=== PATIENT | male | born 1980 | race Caucasian/White ===

== ENCOUNTER 2017-09-13 14:04 | Emergency (ER) | payer MEDICAID, OTHER ==
--- NOTE | 2017-09-13 14:48 | RAD ---
PORTABLE AP CHEST X-RAY: 09/13/2017 HISTORY: Sepsis. COMPARISON: 06/18/2017. FINDINGS: Post-surgical changes related to median sternotomy are again present. Cardiac silhouette is magnified by projection and shallow depth of inspiration. Lungs are clear. Metallic density overlies the rig ht lung base likely related to external jewelry, also seen on prior exam. No interval change from pr ior study. IMPRESSION: No acute cardiopulmonary process. POS: OFF
[2017-09-13 15:04] LABS: #Eosinphils 0.1 thou/uL (0.0-0.7); #Lymphocytes 0.9 thou/uL (1.20-3.40); #Monocytes 0.5 thou/uL (0.11-0.59); #Neutrophils 2.4 thou/uL (1.40-6.50); %Basophils 0.5 % (0.0-1.0); %Eosinophils 2.1 % (0.0-10.0); %Lymphocytes 23.2 % (21.0-51.0); %Monocytes 12.3 % (0.0-10.0); Hematocrit 44.3 % (42.0-52.0); Mean Platelet Volume 7.2 fL (7.4-10.4); Red Blood Cell (RBC) Count 4.55 mill/uL (4.70-6.10); White Blood Cell (WBC) Count 3.9 thou/uL (4.8-10.8)
[2017-09-13 15:17] LABS: Lactic Acid - Sepsis 1.5 mmol/L (0.5-2.2)
[2017-09-13 15:37] LABS: Bilirubin Negative (Negative); Blood, Urine Trace (Negative); Glucose, Urine (Dipstick) >=1000 mg/dL (Negative); Ketone, Urine 40 mg/dL (Negative); Nitrite Negative (Negative); Protein, Urine (Dipstick) Trace mg/dL (Neg-Trace); Urobilinogen 0.2 mg/dL (0.2-1.0)
[2017-09-13 15:40] LABS: Bacteria/HPF None Seen HPF (None Seen); Hyaline Casts/LPF 0-3 HYALINE CAST LPF (0-3 Hyaline); RBC/HPF 0-3 HPF (0-3); Squamous Epithelial None Seen HPF (0-3); WBC/HPF 0-3 HPF (0-3)
[2017-09-13 15:55] LABS: ALT (SGPT) 45 U/L (8-55); AST (SGOT) 40 U/L (5-34); Alkaline Phosphatase 79 U/L (40-150); Anion Gap 13 mmol/L (10-20); BUN (Urea Nitrogen) 10 mg/dL (8.9-20.6); Calc. Creatinine Clearance 0 mL/min (70-130); Calcium 8.7 mg/dL (7.8-10.44); Carbon Dioxide 22 mmol/L (22-29); Chloride 102 mmol/L (98-107); Estimated GFR-MDRD Greater than 90; Protein, Total 6.5 g/dL (6.0-8.3)
[2017-09-13] MEDS ORDERED: Ketorolac Tromethamine 30 MG/ML VIAL ONE (16:21)
[2017-09-13] MEDS ORDERED: Clindamycin/D5W 600 mg/50 ml Premix Bag ONE (17:03)
[2017-09-13] MEDS ORDERED: Clindamycin 150 MG CAP ONE (17:05)
--- NOTE | 2017-09-14 07:12 | CT ---
POST CONTRAST FACE CT: History: Weakness starting today, facial pain. Comparison: None. Technique: Post contrast facial CT is performed in the axial plane. Reformatted images are submitted for interpretation. FINDINGS: Visualized brain parenchyma is unremarkable. There is mild mucosal thickening of the ethmoid air cells. There is a mucous retention cyst in the le ft maxillary sinus. Adequate mastoid air cell aeration. Visualized osseous structures of the face and orbits are unremarkable. Coronal reformatted images dem onstrate patent bilateral osteomeatal complexes. The septum is intact. Mild leftward deviation of the bony spur. There extensive peridental disease. There are multiple dental caries involving the left mandibular mo lar teeth. No evidence of destruction of the mandible. There are extensive dental caries involving bi lateral maxilla molar teeth, left greater than right. With regard to the oral cavity, evaluation is limited by beam attenuation artifact. Midline fatty elsy f of the tongue appears to be preserved. The floor of the mouth is unremarkable. There is mixed atten uation anterior to the right gingiva, compatible with dip/snuff. There is symmetric attenuation of the parotid and submandibular glands. There is minimal induration of the facial subcutaneous fat. There in induration and loss of the jennifer l fat lateral to the left nasal cavity and anterior left maxillary sinus. A focal area of inflammatio n is suspected. There is no evidence of a drainable abscess. IMPRESSION: 1. Soft tissue swelling and induration as above. No evidence of drainable abscess. 2. Multiple dental carries. Consider dental consultation. 3. Results of study discussed with ER physician, Dr. [place] 09-13-17 at 4:13 p.m. POS: [facility]
== END 2017-09-13 17:15 | disposition home or self-care (01) ==
LOC: ERS 14:04
DX: K08.89 Other specified disorders of teeth and supporting structures (principal); E11.9 Type 2 diabetes mellitus without complications; E78.5 Hyperlipidemia, unspecified; F31.9 Bipolar disorder, unspecified; F41.9 Anxiety disorder, unspecified; F17.220 Nicotine dependence, chewing tobacco, uncomplicated; F17.210 Nicotine dependence, cigarettes, uncomplicated; I25.10 Atherosclerotic heart disease of native coronary artery without angina pectoris; I25.2 Old myocardial infarction; G43.909 Migraine, unspecified, not intractable, without status migrainosus; M06.9 Rheumatoid arthritis, unspecified; Z79.82 Long term (current) use of aspirin; Z79.84 Long term (current) use of oral hypoglycemic drugs; Z79.899 Other long term (current) drug therapy
CPT/HCPCS: 36415; 36416; 70487; 71010; 80053; 81003; 81015; 83605; 85025; 87040; 87086; 93005; 96361; 96374; 99406; J1885; J3490

== ENCOUNTER 2017-12-16 01:52 | Emergency (ER) | payer OTHER ==
[2017-12-16 02:27] LABS: #Basophils 0.1 thou/uL (0.0-0.2); #Eosinphils 0.3 thou/uL (0.0-0.7); #Lymphocytes 2.2 thou/uL (1.20-3.40); #Monocytes 0.3 thou/uL (0.11-0.59); #Neutrophils 1.8 thou/uL (1.40-6.50); %Eosinophils 6.3 % (0.0-10.0); %Lymphocytes 46.6 % (21.0-51.0); %Monocytes 7.1 % (0.0-10.0); Hemoglobin 16.4 g/dL (14.0-18.0); Mean Corpuscular HGB CONC 36.4 g/dL (32.0-36.0); Mean Corpuscular Hemoglobin 33.8 pg (27.0-31.0); Mean Corpuscular Volume 92.7 fl (80.0-94.0); Platelet Count 229 thou/uL (130-400); RBC Distribution Width 12.6 % (11.5-14.5); Red Blood Cell (RBC) Count 4.86 mill/uL (4.70-6.10); White Blood Cell (WBC) Count 4.8 thou/uL (4.8-10.8)
[2017-12-16 02:39] LABS: Base Excess-Venous 1.6 mmol/L (-30.0-30.0); Bicarbonate (HCO3v) 27.3 mmol/L (1.0-85.0); CO2 Tension (PvCO2) 45.6 mmHg (41.0-51.0); Calcium, Ionized 1.21 mmol/L (1.12-1.32); Hemoglobin - Calc 15.9 g/dL (12.0-18.0); O2 Tension (PvO2) 46.4 mmHg (35.0-45.0); Potassium 3.9 mmol/L (3.4-4.7); T. Carbon Dioxide 28.7 mmol/L (1.0-85.0); pH (Venous) 7.385 (7.35-7.45)
[2017-12-16 02:39] LABS: ALT (SGPT) 17 U/L (8-55); AST (SGOT) 15 U/L (5-34); Albumin 4.2 g/dL (3.5-5.0); Alkaline Phosphatase 88 U/L (40-150); Anion Gap 16 mmol/L (10-20); BUN (Urea Nitrogen) 11 mg/dL (8.9-20.6); Bilirubin, Total 0.5 mg/dL (0.2-1.2); Calc. Creatinine Clearance 0 mL/min (70-130); Calcium 9.9 mg/dL (7.8-10.44); Carbon Dioxide 25 mmol/L (22-29); Chloride 96 mmol/L (98-107); Estimated GFR-MDRD 87; Globulin 3.8 g/dL (2.4-3.5); Glucose 427 mg/dL (70-105); Potassium 4.2 mmol/L (3.5-5.1); Sodium 133 mmol/L (136-145)
[2017-12-16 02:44] LABS: CKMB 1.5 ng/mL (0-6.6); Troponin I Less than 0.010 ng/mL (< 0.028)
[2017-12-16 03:07] LABS: CK (CPK) 49 U/L (30-200)
== END 2017-12-16 03:18 | disposition home or self-care (01) ==
LOC: ERS 01:52
DX: R07.9 Chest pain, unspecified (principal); I25.2 Old myocardial infarction; E11.9 Type 2 diabetes mellitus without complications; G43.909 Migraine, unspecified, not intractable, without status migrainosus; I25.10 Atherosclerotic heart disease of native coronary artery without angina pectoris; E78.5 Hyperlipidemia, unspecified; F41.9 Anxiety disorder, unspecified; F31.9 Bipolar disorder, unspecified; F17.220 Nicotine dependence, chewing tobacco, uncomplicated; Z79.899 Other long term (current) drug therapy; Z79.82 Long term (current) use of aspirin; Z79.84 Long term (current) use of oral hypoglycemic drugs
CPT/HCPCS: 36415; 80053; 82010; 82330; 82550; 82553; 82803; 84484; 85025; 93005

== ENCOUNTER 2017-12-18 13:22 | Emergency (ER) | payer OTHER ==
--- NOTE | 2017-12-18 14:07 | RAD ---
RIGHT HIP 2 VIEWS: Date: 12/20/17 HISTORY: Right hip pain. FINDINGS/IMPRESSION: No fracture, dislocation, or bony destruction is identified. Mild osteoarthritic changes are stable s josh 10/19/16. POS: OFF
== END 2017-12-18 14:04 | disposition home or self-care (01) ==
LOC: SCSER 13:22
DX: M76.31 Iliotibial band syndrome, right leg (principal); M06.9 Rheumatoid arthritis, unspecified; F41.9 Anxiety disorder, unspecified; F31.9 Bipolar disorder, unspecified; G43.909 Migraine, unspecified, not intractable, without status migrainosus; I25.2 Old myocardial infarction; E78.5 Hyperlipidemia, unspecified; E78.00 Pure hypercholesterolemia, unspecified; Z87.891 Personal history of nicotine dependence; Z79.899 Other long term (current) drug therapy

== ENCOUNTER 2018-01-06 15:00 | Emergency (ER) | payer OTHER ==
[2018-01-06 15:31] LABS: #Basophils 0.1 thou/uL (0.0-0.2); #Eosinphils 0.4 thou/uL (0.0-0.7); #Lymphocytes 1.7 thou/uL (1.20-3.40); #Monocytes 0.4 thou/uL (0.11-0.59); #Neutrophils 2.9 thou/uL (1.40-6.50); %Basophils 1.5 % (0.0-1.0); %Eosinophils 6.7 % (0.0-10.0); %Lymphocytes 31.1 % (21.0-51.0); %Monocytes 6.9 % (0.0-10.0); %Neutrophils 53.7 % (42.0-75.0); Hemoglobin 15.8 g/dL (14.0-18.0); Mean Corpuscular HGB CONC 35.5 g/dL (32.0-36.0); Mean Corpuscular Hemoglobin 33.3 pg (27.0-31.0); Mean Corpuscular Volume 93.8 fl (80.0-94.0); Mean Platelet Volume 6.8 fL (7.4-10.4); Platelet Count 225 thou/uL (130-400); RBC Distribution Width 12.8 % (11.5-14.5); Red Blood Cell (RBC) Count 4.73 mill/uL (4.70-6.10); White Blood Cell (WBC) Count 5.3 thou/uL (4.8-10.8)
[2018-01-06 15:58] LABS: CKMB 1.5 ng/mL (0-6.6); Troponin I Less than 0.010 ng/mL (< 0.028)
[2018-01-06 16:02] LABS: ALT (SGPT) 25 U/L (8-55); AST (SGOT) 24 U/L (5-34); Albumin 4.1 g/dL (3.5-5.0); Alkaline Phosphatase 76 U/L (40-150); Anion Gap 18 mmol/L (10-20); BUN (Urea Nitrogen) 16 mg/dL (8.9-20.6); Bilirubin, Total 0.7 mg/dL (0.2-1.2); CK (CPK) 70 U/L (30-200); Calc. Creatinine Clearance 0 mL/min (70-130); Calcium 9.1 mg/dL (7.8-10.44); Carbon Dioxide 20 mmol/L (22-29); Chloride 98 mmol/L (98-107); Estimated GFR-MDRD 61; Globulin 2.8 g/dL (2.4-3.5); Glucose 550 mg/dL (70-105); Potassium 4.3 mmol/L (3.5-5.1); Protein, Total 6.9 g/dL (6.0-8.3); Sodium 132 mmol/L (136-145)
--- NOTE | 2018-01-06 16:03 | RAD ---
2 VIEWS CHEST: Date: 01/06/18 PROVIDED CLINICAL HISTORY: Chest pain. FINDINGS: Comparison with 01/12/14. Cardiac and mediastinal silhouette is within normal limits. No focal consolidation, pleural fluid, or pneumothorax apparent. Median sternotomy changes are seen. IMPRESSION: No evidence for an acute cardiopulmonary process. POS: H
== END 2018-01-06 16:38 | disposition home or self-care (01) ==
LOC: ERS 15:00
DX: R07.89 Other chest pain (principal); G43.909 Migraine, unspecified, not intractable, without status migrainosus; I25.10 Atherosclerotic heart disease of native coronary artery without angina pectoris; I25.2 Old myocardial infarction; E11.9 Type 2 diabetes mellitus without complications; E78.5 Hyperlipidemia, unspecified; F41.9 Anxiety disorder, unspecified; F31.9 Bipolar disorder, unspecified; Z87.891 Personal history of nicotine dependence; Z79.84 Long term (current) use of oral hypoglycemic drugs; Z79.82 Long term (current) use of aspirin; Z79.899 Other long term (current) drug therapy
CPT/HCPCS: 71046; 80053; 82550; 82553; 84484; 85025; 93005; 94760

== ENCOUNTER 2018-01-20 12:11 | Emergency (ER) | payer OTHER ==
[2018-01-20 12:46] LABS: #Basophils 0.1 thou/uL (0.0-0.2); #Eosinphils 0.4 thou/uL (0.0-0.7); #Lymphocytes 1.9 thou/uL (1.20-3.40); #Monocytes 0.4 thou/uL (0.11-0.59); #Neutrophils 2.5 thou/uL (1.40-6.50); %Basophils 1.3 % (0.0-1.0); %Eosinophils 6.7 % (0.0-10.0); %Lymphocytes 36.6 % (21.0-51.0); %Monocytes 8.1 % (0.0-10.0); %Neutrophils 47.4 % (42.0-75.0); Hemoglobin 17.2 g/dL (14.0-18.0); Mean Corpuscular HGB CONC 35.4 g/dL (32.0-36.0); Mean Corpuscular Hemoglobin 32.8 pg (27.0-31.0); Mean Corpuscular Volume 92.7 fl (80.0-94.0); Mean Platelet Volume 6.8 fL (7.4-10.4); Platelet Count 223 thou/uL (130-400); RBC Distribution Width 12.6 % (11.5-14.5); Red Blood Cell (RBC) Count 5.24 mill/uL (4.70-6.10); White Blood Cell (WBC) Count 5.3 thou/uL (4.8-10.8)
--- NOTE | 2018-01-20 13:08 | RAD ---
FRONTAL VIEW CHEST: Date: 01/20/18 COMPARISON: 01/06/18. INDICATION: Chest pain. FINDINGS: There is no consolidation, effusion, or pneumothorax. Cardiomediastinal silhouette is stable. IMPRESSION: 1. Stable chest, without focal consolidation. 2. Incidental note of a curvilinear density at the inferolateral left chest. This may be related to overlying ornamentation. Correlate clinically. POS: [facility]
[2018-01-20 13:10] LABS: CKMB 0.8 ng/mL (0-6.6); Troponin I Less than 0.010 ng/mL (< 0.028)
[2018-01-20 13:21] LABS: ALT (SGPT) 22 U/L (8-55); AST (SGOT) 14 U/L (5-34); Albumin 4.3 g/dL (3.5-5.0); Alkaline Phosphatase 77 U/L (40-150); Anion Gap 16 mmol/L (10-20); BUN (Urea Nitrogen) 10 mg/dL (8.9-20.6); Bilirubin, Total 0.7 mg/dL (0.2-1.2); CK (CPK) 31 U/L (30-200); Calc. Creatinine Clearance 0 mL/min (70-130); Calcium 9.7 mg/dL (7.8-10.44); Carbon Dioxide 26 mmol/L (22-29); Chloride 101 mmol/L (98-107); Estimated GFR-MDRD Greater than 90; Globulin 2.6 g/dL (2.4-3.5); Glucose 376 mg/dL (70-105); Potassium 4.5 mmol/L (3.5-5.1); Protein, Total 6.9 g/dL (6.0-8.3); Sodium 138 mmol/L (136-145)
== END 2018-01-20 14:01 | disposition home or self-care (01) ==
LOC: ERS 12:11
DX: I20.9 Angina pectoris, unspecified; I25.2 Old myocardial infarction; F31.9 Bipolar disorder, unspecified; F41.9 Anxiety disorder, unspecified; E11.9 Type 2 diabetes mellitus without complications; M06.9 Rheumatoid arthritis, unspecified; E78.5 Hyperlipidemia, unspecified; G43.909 Migraine, unspecified, not intractable, without status migrainosus; Z87.891 Personal history of nicotine dependence
CPT/HCPCS: 36415; 71045; 80053; 82553; 84484; 85025; 93005

== ENCOUNTER 2018-01-26 17:40 | Emergency (ER) | payer OTHER ==
[~2018-01-26 17:40] MED LIST: ISOVUE-370 76%-LOCM 1 ML ONE
--- NOTE | 2018-01-26 18:25 | RAD ---
SINGLE VIEW OF THE CHEST 01/26/18 COMPARISON: 01/20/18 HISTORY: Chest pain. FINDINGS: Single view of the chest shows a normal sized cardiomediastinal silhouette. The patient is status pos t sternotomy. There is no evidence of consolidation, mass, or pleural effusion. The patient has a lef t nipple piercing. IMPRESSION: No evidence of acute cardiopulmonary disease. POS: [facility]
[2018-01-26 18:32] LABS: #Basophils 0.1 thou/uL (0.0-0.2); #Eosinphils 0.3 thou/uL (0.0-0.7); #Lymphocytes 1.8 thou/uL (1.20-3.40); #Monocytes 0.4 thou/uL (0.11-0.59); #Neutrophils 2.8 thou/uL (1.40-6.50); %Basophils 1.4 % (0.0-1.0); %Eosinophils 5.9 % (0.0-10.0); %Lymphocytes 32.7 % (21.0-51.0); %Monocytes 7.7 % (0.0-10.0); %Neutrophils 52.3 % (42.0-75.0); Hemoglobin 16.2 g/dL (14.0-18.0); Mean Corpuscular HGB CONC 36.8 g/dL (32.0-36.0); Mean Corpuscular Hemoglobin 34.2 pg (27.0-31.0); Mean Corpuscular Volume 92.8 fl (80.0-94.0); Platelet Count 220 thou/uL (130-400); RBC Distribution Width 12.5 % (11.5-14.5); Red Blood Cell (RBC) Count 4.74 mill/uL (4.70-6.10); White Blood Cell (WBC) Count 5.3 thou/uL (4.8-10.8)
[2018-01-26 18:44] LABS: Bilirubin Negative (Negative); Blood, Urine Negative (Negative); Clarity CLEAR (Clear); Glucose, Urine (Dipstick) >=1000 mg/dL (Negative); Leukocyte Negative (Negative); Nitrite Negative (Negative); Protein, Urine (Dipstick) Negative (Neg-Trace); Specific Gravity, Urine 1.031 (1.002-1.036); Urobilinogen 0.2 mg/dL (0.2-1.0)
[2018-01-26 18:46] LABS: Troponin I Less than 0.010 ng/mL (< 0.028)
[2018-01-26 18:51] LABS: ALT (SGPT) 23 U/L (8-55); AST (SGOT) 20 U/L (5-34); Albumin 3.9 g/dL (3.5-5.0); Alkaline Phosphatase 71 U/L (40-150); Anion Gap 17 mmol/L (10-20); BUN (Urea Nitrogen) 14 mg/dL (8.9-20.6); Bilirubin, Total 0.4 mg/dL (0.2-1.2); Calc. Creatinine Clearance 0 mL/min (70-130); Calcium 9.2 mg/dL (7.8-10.44); Carbon Dioxide 19 mmol/L (22-29); Chloride 102 mmol/L (98-107); Estimated GFR-MDRD 59; Globulin 3.7 g/dL (2.4-3.5); Glucose 492 mg/dL (70-105); Lipase 39 U/L (8-78); Magnesium 2.3 mg/dL (1.6-2.6); Potassium 4.6 mmol/L (3.5-5.1); Protein, Total 7.6 g/dL (6.0-8.3); Sodium 133 mmol/L (136-145)
[2018-01-26 18:54] LABS: Amphetamine Not Detected (NotDetected); Barbiturates Screen Not Detected (NotDetected); Benzodiazepine Screen Not Detected (NotDetected); Cocaine Metabolite Screen Not Detected (NotDetected); Medtox Control Line Valid? VALID (VALID); Medtox Reader # READER 4; Methadone Not Detected (NotDetected); Methamphetamine Not Detected (NotDetected); Opiate Screen Not Detected (NotDetected); Oxycodone Screen Not Detected (NotDetected); Phencyclidine (PCP) Not Detected (NotDetected); THC/Cannabinoid Screen Not Detected (NotDetected); Tricyclic Screen Not Detected (NotDetected)
[2018-01-26] MEDS ORDERED: Acetaminophen 500 MG TAB ONE (18:55)
--- NOTE | 2018-01-26 19:42 | CT ---
CTA OF THE CHEST WITH CONTRAST 01/26/18 COMPARISON: 09/30/15 HISTORY: Chest pain and shortness of breath for ten days. TECHNIQUE: Multiple contiguous axial images were obtained in a CTA of the chest with contrast per pulmonary embo lis protocol. 3D oblique MIP reformats and direct coronal reformats were performed. FINDINGS: The pulmonary arteries are well opacified without filling defects to suggest pulmonary emboli. No hil ar or mediastinal lymphadenopathy are seen. The heart is normal in size. There appear to be calcifica tions in the coronary arteries. No focal infiltrates are seen in the lungs. No suspicious pulmonary nodule is seen. No pneumothorax o r pleural effusion are seen. The visualized subdiaphragmatic structures are unremarkable. Mild degenerative changes are seen in th e spine. The chest wall soft tissues are unremarkable. IMPRESSION: No evidence of pulmonary thromboembolism. POS: [facility]
[2018-01-26] MEDS ORDERED: Insulin Regular 300 UNITS/3 ML VIAL ONE (19:53)
[2018-01-26 21:32] LABS: Troponin I Less than 0.010 ng/mL (< 0.028)
== END 2018-01-26 21:40 | disposition home or self-care (01) ==
LOC: ERS 17:40
DX: I20.9 Angina pectoris, unspecified (principal); G43.909 Migraine, unspecified, not intractable, without status migrainosus; I25.10 Atherosclerotic heart disease of native coronary artery without angina pectoris; I25.2 Old myocardial infarction; E11.9 Type 2 diabetes mellitus without complications; E78.5 Hyperlipidemia, unspecified; F41.9 Anxiety disorder, unspecified; F32.9 Major depressive disorder, single episode, unspecified; Z87.891 Personal history of nicotine dependence; Z79.4 Long term (current) use of insulin; Z79.899 Other long term (current) drug therapy
CPT/HCPCS: 36415; 36416; 71045; 71275; 80053; 80306; 81003; 82010; 82553; 83690; 83735; 83880; 84484; 85025; 85379; 93005; 96360; 96361; 96372; J1815

== ENCOUNTER 2018-02-03 22:34 | Observation (INO) | payer OTHER ==
[2018-02-03 23:18] LABS: ALT (SGPT) 24 U/L (8-55); AST (SGOT) 19 U/L (5-34); Albumin 4.1 g/dL (3.5-5.0); Alkaline Phosphatase 68 U/L (40-150); Anion Gap 15 mmol/L (10-20); BUN (Urea Nitrogen) 17 mg/dL (8.9-20.6); Bilirubin, Total 0.6 mg/dL (0.2-1.2); Calc. Creatinine Clearance 0 mL/min (70-130); Calcium 9.3 mg/dL (7.8-10.44); Carbon Dioxide 25 mmol/L (22-29); Chloride 99 mmol/L (98-107); Estimated GFR-MDRD 80; Globulin 3.7 g/dL (2.4-3.5); Glucose 355 mg/dL (70-105); Lipase 34 U/L (8-78); Magnesium 2.4 mg/dL (1.6-2.6); Potassium 4.3 mmol/L (3.5-5.1); Protein, Total 7.8 g/dL (6.0-8.3); Sodium 135 mmol/L (136-145)
--- NOTE | 2018-02-03 23:18 | RAD ---
PORTABLE AP CHEST X-RAY: 02/03/2018 HISTORY: Chest pain. COMPARISON: 01/26/2018 FINDINGS: Post surgical changes related to median sternotomy are noted. Metallic densities overly the lower le ft chest, probably related to external jewelry. This was also present on prior exam. The cardiac si lhouette and pulmonary vasculature are within normal limits. The lungs remain clear. There has been no interval change from prior study. IMPRESSION: Stable chest without evidence of an acute cardiopulmonary process. POS: [facility]
[2018-02-03 23:19] LABS: #Basophils 0.1 thou/uL (0.0-0.2); #Eosinphils 0.2 thou/uL (0.0-0.7); #Lymphocytes 1.7 thou/uL (1.20-3.40); #Monocytes 0.6 thou/uL (0.11-0.59); #Neutrophils 2.4 thou/uL (1.40-6.50); %Basophils 1.4 % (0.0-1.0); %Eosinophils 4.9 % (0.0-10.0); %Lymphocytes 34.1 % (21.0-51.0); %Monocytes 12.5 % (0.0-10.0); %Neutrophils 47.2 % (42.0-75.0); Hemoglobin 14.9 g/dL (14.0-18.0); Mean Corpuscular HGB CONC 35.3 g/dL (32.0-36.0); Mean Corpuscular Hemoglobin 34.8 pg (27.0-31.0); Mean Corpuscular Volume 93.5 fl (80.0-94.0); Mean Platelet Volume 6.8 fL (7.4-10.4); Platelet Count 209 thou/uL (130-400); RBC Distribution Width 12.7 % (11.5-14.5); Red Blood Cell (RBC) Count 4.52 mill/uL (4.70-6.10)
[2018-02-03 23:22] LABS: CKMB 1.3 ng/mL (0-6.6); Troponin I Less than 0.010 ng/mL (< 0.028)
[2018-02-04] MEDS ORDERED: Fentanyl 100 MCG/2 ML VIAL ONE (00:02)
--- NOTE | 2018-02-04 00:10 | PDOC.FPRHP ---
- History of Present Illness Chief Complaint: Chest Pain History of Present Illness: 37 yo male presents for evaluation of chest pain. He states he has chronic problems with chest pain. These latest episodes have been persisting for over 3 weeks. He notes that the pain is present at rest and during exercise. He describes the pain as a squeezing pain across his chest with some electrical shock pains at times. Patient also states he has had palpitations and SOB associated with this. He denies any lower extremity edema and states that he can lay flat in a bed. He denies nausea, diaphoresis, headaches, or radiation of the pain. He states he was scheduled for an office procedure with Dr. Linton on Sunday, but felt he couldn't make it until that time. He was also seen in the ED last week for a very similar episode. Patient has no other complaints at this time. ED Course: Fentanyl - Allergies/Adverse Reactions Allergies Allergy/AdvReac Type Severity Reaction Status Date / Time adhesive tape Allergy Verified 02/04/18 01:37 metoclopramide [From Reglan] AdvReac Severe HALLUCINATI Verified 02/04/18 01:37 ONS - Home Medications Medication Instructions Recorded Confirmed Type Aspirin 325 mg PO DAILY tab 06/19/17 02/04/18 Rx Isosorbide Mononitrate [Imdur ER] 30 mg PO DAILY tab 06/19/17 02/04/18 Rx Lisinopril [Zestril] 10 mg PO DAILY tab 06/19/17 02/04/18 Rx Nitroglycerin [Nitrostat] 0.4 mg PO Q5MIN PRN #20 tab 06/19/17 02/04/18 Rx Amitriptyline HCl [Elavil] 25 mg PO HS 02/04/18 02/04/18 History HumaLOG [HumaLOG] 0 unit SC TID-WM PRN 02/04/18 02/04/18 History Insulin Detemir 100 UNITS/ML 45 unit SQ BID 02/04/18 02/04/18 History [Levemir] Metoprolol Tartrate [Lopressor] 25 mg PO BID 02/04/18 02/04/18 History Ranolazine [Ranexa] 500 mg PO BID 02/04/18 02/04/18 History - History PMHx: Rheumatoid Arthritis, Migraines, CAD s/p 2v bypass, [place], DM2, HLD PSHx: 2v bypass graft, Right knee surgery FHx: Maternal Heart Disease Social: Drinks alcohol socially. 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 Former smoker, now uses chewing tobacco. - Review of Systems General: reports: night sweats. denies: fever/chills ENT: denies: nasal congestion, rhinorrhea Respiratory: reports: shortness of breath. denies: cough, congestion Cardiovascular: reports: chest pain, palpitation. denies: edema Gastrointestinal: denies: nausea, vomiting Genitourinary: denies: incontinence, dysuria Skin: denies: rashes, lesions Musculoskeletal: denies: pain, tenderness Neurological: denies: numbness, syncope Psychological: denies: anxiety, depression - Vital signs BP: [132/69] HR: [83] RR: [17] Tmax: [98.5] Pox: [94]% on [RmAir] Wt: [82 kg] - Physical Exam Constitutional: NAD, awake, alert and oriented HEENT: PERRLA, grossly normal vision, TM's clear and intact, grossly normal hearing, normal nasal mucosa, MMM Neck: supple, trachea midline Chest: no-tender to palpation Heart: RRR, normal S1/S2, no murmurs/rubs/gallops -Heart: Scar from previous Bypass surgery Lungs: CTAB, no wheezing Abdomen: soft, non-tender, bowel sounds present, no masses/distention, no hernias Musculoskeletal: normal structure, normal tone, ROM grossly normal Neurological: no focal deficit, CN II-XII intact, normal sensation Skin: no rash/lesions Heme/Lymphatic: no unusual bruising or bleeding Psychiatric: normal mood and affect, good judgment and insight, intact recent and remote memory FMR H&P: Results - Labs Result Diagrams: 02/03/18 22:48 02/03/18 22:48 Lab results: WBC 5.0 thou/uL (4.8-10.8) 02/03/18 22:48 Hgb 14.9 g/dL (14.0-18.0) 02/03/18 22:48 Hct 42.3 % (42.0-52.0) 02/03/18 22:48 MCV 93.5 fl (80.0-94.0) 02/03/18 22:48 Plt Count 209 thou/uL (130-400) 02/03/18 22:48 Neutrophils % 47.2 % (42.0-75.0) 02/03/18 22:48 Sodium 135 mmol/L (136-145) L 02/03/18 22:48 Potassium 4.3 mmol/L (3.5-5.1) 02/03/18 22:48 Chloride 99 mmol/L (98-107) 02/03/18 22:48 Carbon Dioxide 25 mmol/L (22-29) 02/03/18 22:48 BUN 17 mg/dL (8.9-20.6) 02/03/18 22:48 Creatinine 1.04 mg/dL (0.6-1.3) 02/03/18 22:48 Glucose 355 mg/dL (70-105) H 02/03/18 22:48 Calcium 9.3 mg/dL (7.8-10.44) 02/03/18 22:48 Total Bilirubin 0.6 mg/dL (0.2-1.2) 02/03/18 22:48 AST 19 U/L (5-34) 02/03/18 22:48 ALT 24 U/L (8-55) 02/03/18 22:48 Alkaline Phosphatase 68 U/L (40-150) 02/03/18 22:48 CK-MB (CK-2) 1.3 ng/mL (0-6.6) 02/03/18 22:48 Serum Total Protein 7.8 g/dL (6.0-8.3) 02/03/18 22:48 Albumin 4.1 g/dL (3.5-5.0) 02/03/18 22:48 Lipase 34 U/L (8-78) 02/03/18 22:48 - EKG Interpretation EK lead EKG shows normal sinus rhythm, Rate (beats per minute): 82, T waves, nonspecific abnormality, No change from 20 January 2018. [place] 166ms. FMR H&P: A/P - Problem List (1) Cardiac angina Current Visit: No Status: Acute Code(s): I20.9 - ANGINA PECTORIS, UNSPECIFIED (2) Coronary artery disease Current Visit: No Status: Chronic Code(s): I25.10 - ATHSCL HEART DISEASE OF [place] CORONARY ARTERY W/O ANG PCTRS Qualifiers: Coronary Disease-Associated Artery/Lesion type: bypass graft [place] vs. transplanted heart: [place] heart Associated angina: with stable angina Qualified Code(s): I25.708 - Atherosclerosis of coronary artery bypass graft(s) , unspecified, with other forms of angina pectoris (3) Diabetes mellitus type 2, uncontrolled Current Visit: No Status: Chronic Code(s): E11.65 - TYPE 2 DIABETES MELLITUS WITH HYPERGLYCEMIA Qualifiers: (4) HLD (hyperlipidemia) Current Visit: No Status: Chronic Code(s): E78.5 - HYPERLIPIDEMIA, UNSPECIFIED Qualifiers: Hyperlipidemia type: mixed hyperlipidemia Qualified Code(s): E78.2 - Mixed hyperlipidemia (5) HTN (hypertension) Current Visit: No Status: Chronic Code(s): I10 - ESSENTIAL (PRIMARY) HYPERTENSION Qualifiers: Hypertension type: essential hypertension Qualified Code(s): I10 - Essential (primary) hypertension (6) Hx of CABG Current Visit: No Status: Chronic - Plan 1. Cardiac Angina - Consult Cards in the AM - Restart Home regimen - NPO now - Aspirin 2. CAD s/p CABG - Continue home meds - Will defer to Cards recs 3. DM2 uncontrolled - accuchecks - SSI - Continue home meds - Check A1C 4. HLD - Continue statin - Check FLP 5. HTN - BP at goal - Continue home meds CODE STATUS: FULL CODE Disposition: Stable, Will admit to Telemetry and await Cards recs. FMR H&P: Upper Level - Pertinent history 37 yo gentleman with history of uncontrolled T2DM, HLD, and CAD s/p CABG who presents with 3 weeks of constant but intermittently worsening dull chest pain that he describes as midsternal and squeezing/pressure-like in nature. He also reports occasional radiation of an electrical type pain across his chest. Associated with mild dyspnea only; denies any associated diaphoresis or palpitations. Patient has intermittent nausea at baseline, not worse during chest pain episodes. States that CP was worse yesterday [place] the [place] and also worse tonight while he sitting at the table eating dinner. No recent change in activity or medications. States that he was scheduled for a two day imaging procedure of his heart by Dr. Linton for tomorrow here at . Endorses frequent medication non-compliance. Of note, patient's last heart catheterization was in September 2016 which showed 60% proximal and 70% mid stenosis in his LAD, which fills through a widely patent ODOM to LAD. Pt also had a single day nuclear medicine stress on 06/19/17 that showed no evidence of ischemia. - Pertinent findings VSS Gen: NAD, AAOx3, appears older than stated age CV: RRR, no m/g/r Lungs: CTAB b/l Ext: no/c/e Pulses: LE intact b/l Skin: notable for sternotomy scar ECG: NSR; chronic ST changes - Plan Date/Time: 02/04/18 0008 I, Tony Lee, have evaluated this patient and agree with findings/plan as outlined by sports broadcasting internship resident. Pertinent changes/additions are listed here. 37 yo M with: 1) Chronic angina: possible 2/2 medication non-compliance. Patient with multiple prior admissions for similar complaints but does have significant cardiac history and risk factors. Place in observation to telemetry. Patient already had full strength ASA during EMS transport. VS all stable, no acute changes on EKG. Continue to trend cardiac enzymes, initial set negative. Morphine, nitro, O2 as needed O/N. NPO until AM. Cardiology consult in AM; will likely perform previously scheduled procedure (nuclear stress?) while patient in -house unless any acute change O/N. Restart home medications including Ranexa. 2) Grossly uncontrolled T2DM w/ hyperglycemia: A1c >14 in December 2017. Accuchecks AC/HS. Restart home medications including insulin and adjust as needed. 3) LAVELL v. CKDII: maintenance IVF O/N 4) CAD s/p CABG: as above 5) HTN: currently at goal, continue home meds 6) HLD: continue home statin Attending Addendum - Attending Addendum Date/Time: 02/04/18 [id number] I personally evaluated the patient and discussed the management with Dr. Leyva /Rosa. I agree with the History, Examination, Assessment and Plan documented above with any addition or exceptions noted below. Patient with chronic chest pain admitted for similar symptoms. Titrate home medications as needed to gain control of his symptoms and improved control of DM and HLD. Await cardiology recs. Anticipate overnight hospitalization.
[2018-02-04] MEDS ORDERED: Dextrose 5% in Water 1,000 ML IV PRN (01:31)
[2018-02-04] MEDS ORDERED: Dextrose 50% Abboject 50 ML SYRINGE SLOW IVP PRN (01:31)
[2018-02-04] MEDS ORDERED: Ondansetron ODT 4 MG TAB PO PRN (01:31)
[2018-02-04] MEDS ORDERED: Nitroglycerin 0.4 MG TAB (25 Tab Bottle) PO PRN (01:31)
[2018-02-04] MEDS ORDERED: Acetaminophen 325 MG TAB PO PRN (01:31)
[2018-02-04 01:34] VITALS: BMI 28.3
[2018-02-04] MEDS ORDERED: Nitroglycerin 0.4 MG TAB (25 Tab Bottle) SL PRN (02:03)
[2018-02-04 02:17] LABS: Hemoglobin A1c 10.5 % (4.0-6.0)
[2018-02-04 02:28] LABS: Troponin I Less than 0.010 ng/mL (< 0.028)
[2018-02-04 02:45] LABS: Cardiac Risk 7.6 (Less than 4.5); Cholesterol 250 mg/dl (< 200 Desired); HDL Cholesterol 33 mg/dL (>60 Neg Risk)
[2018-02-04 02:54] LABS: Triglycerides 1161 mg/dL (Less than 150)
[2018-02-04 05:29] LABS: Troponin I Less than 0.010 ng/mL (< 0.028)
--- NOTE | 2018-02-04 08:46 | PDOC.EVN ---
Event Note - Event Note Event Note: Spoke to Dr. Linton who is patient primary Visual Merchandise Manager this AM Will see and evaluate the patient Patient is NPO in case of stress or procedure
[2018-02-04] MEDS ORDERED: Insulin Detemir 100 UNITS/ML 50 UNITS in Pre-Filled Syringe 1 EACH SC SCH (09:00)
[2018-02-04] MEDS ORDERED: Insulin Detemir 100 UNITS/ML 55 UNITS in Pre-Filled Syringe 1 EACH SC SCH (09:19)
[2018-02-04] MEDS ORDERED: Insulin Regular 300 UNITS/3 ML VIAL SC SCH (09:30)
--- NOTE | 2018-02-04 10:08 | CON ---
DATE OF SERVICE: 02/04/2018 REASON FOR CONSULTATION: Chest pain. HISTORY OF PRESENT ILLNESS: Mr. Acosta is a pleasant 37-year-old white gentleman, who comes to the ospital for chest pain, but he has chronic episodes of chest pain, but he also has known coronary art amandeep disease. He had a ODOM to the LAD and a chronically occluded right. He had been lost to followu p for the last year and a half, because he had lost his coverage, but recently he came back to the [facility] for reevaluation, as he continues to have chest pains. At that point, we offered to do a viabil ity study to see if there is any viable myocardium in the inferior wall, which is chronically occlude d to see whether we need to send him to a different [employer] dye winch operator. He has had an attempt at [facility] at [facility] by Dr. Krueger and he was unable to cross, so he may have a lesion there that is just not amenable to any catheter-based intervention. He also had bypass surgery, and they could not get to the right coronary. He continues to have chest pain and shows to the hospital once or twice a week f or this. PAST MEDICAL HISTORY: 1. Coronary artery disease with a ODOM to the LAD and a vein to an OM that was occluded. However, t he OM is widely patent. He had a RCA that is totally occluded and not bypassed. 2. Hyperlipidemia. 3. Type 2 diabetes, poorly controlled. 4. Migraine headaches. 5. Gastroesophageal reflux disease. PAST SURGICAL HISTORY: 1. Two-vessel bypass as above in 2013. 2. Right knee surgery. OUTPATIENT MEDICATIONS: 1. Insulin Levemir. 2. Ranexa 500 mg b.i.d. 3. Amitriptyline 25 mg at bedtime. 4. Aspirin 325 mg a day. 5. Metoprolol 25 mg b.i.d. 6. Humalog. 7. Lisinopril 10 mg a day. 8. Imdur 30 mg a day. 9. Sublingual nitro p.r.n. ALLERGIES: 1. ADHESIVE TAPE. 2. METOCLOPRAMIDE gives him hallucinations. SOCIAL HISTORY: Chews tobacco. No alcohol or drugs. FAMILY HISTORY: Positive for early coronary artery disease. REVIEW OF SYSTEMS: Twelve-point review of systems was done, is otherwise negative unless stated in t he history of present illness. PHYSICAL EXAMINATION: VITAL SIGNS: Temperature 98.2, pulse 78, respiratory rate 20, satting 93% on room air, blood pressur e 130/80. GENERAL: Awake, alert, oriented x3, in no distress. HEENT: Normocephalic, atraumatic. NECK: Supple. LUNGS: Clear. CARDIOVASCULAR: S1 and S2, no S3 or S4, no murmurs. ABDOMEN: Soft, positive bowel sounds. EXTREMITIES: No edema. SKIN: Warm and dry. LABORATORY WORK: Reviewed. CBC is unremarkable. Chemistry: Sodium 135 and potassium is 4.3. Ever ything else is normal except for glucose of 355. Hemoglobin A1c was 10.5. Calcium and phosphorus we re all normal. LFTs were normal. Troponin is undetectable x3. Albumin of 4.1. Triglycerides were 1161, cholesterol was 250, LDL was unable to be calculated. HDL of 33. Lipase was normal. EKG was reviewed. Chest x-ray, no acute cardiopulmonary issues. CT of the chest performed about a week ago showed no evidence of pulmonary embolism and no other path ology. ASSESSMENT AND PLAN: Chest pain, chronic in nature, maybe related to coronary artery disease. At th is point, he does have a chronically occluded RCA. We have planned to do a viability study tomorrow as an outpatient. We will just get it done while he is in the hospital. If his inferior tissue is v iable, then this is a reason to try to revascularize the right coronary artery. Otherwise, if it is not viable, this is scar tissue that should not hurt. He should be able to be discharged home after that. We would up titrate his antianginal medications on the Ranexa to 1000 mg twice a day. Thank you for letting us participate in the care of your patient. We will follow.
[2018-02-04] MEDS: Metoprolol Tartrate 50 MG TAB PO SCH ×2 (10:48→21:43)
[2018-02-04] MEDS: Aspirin 325 MG TAB PO SCH (10:48)
[2018-02-04] MEDS: Insulin Detemir 100 UNITS/ML 55 UNITS in Pre-Filled Syringe 1 EACH SC SCH ×2 (10:49→21:18)
[2018-02-04] MEDS: Lisinopril 10 MG TAB PO SCH (10:49)
[2018-02-04] MEDS: HumaLOG 300 UNITS/3 ML VIAL SC PRN (16:35)
[2018-02-04] MEDS ORDERED: Amitriptyline HCl 25 MG TAB PO SCH (21:00)
[2018-02-04] MEDS ORDERED: Atorvastatin Calcium 40 MG TAB PO SCH (21:00)
[2018-02-04] MEDS ORDERED: Cepastat Lozenges 1 LOZ PO PRN ×2 (21:12→21:32)
--- NOTE | 2018-02-05 08:33 | PDOC.FM ---
- Subjective Subjective: This morning the patient states his chest pain remains at 4/10. He denies N/V or abdominal pain. He states he was able to walk in the hallway yesterday without increased pain. No SOB. Patient is anxious for results of stress test. - Objective Vital Signs & Weight: Vital Signs (12 hours) Temp Pulse Resp BP Pulse Ox 02/05/18 08:07 98.2 F 75 18 120/71 94 L 02/05/18 07:46 98.3 F 79 16 02/05/18 05:14 98.3 F 79 16 132/83 94 L 02/04/18 23:32 98 F 88 14 105/60 92 L Weight Weight 82.962 kg I&O: 02/04/18 02/05/18 02/06/18 06:59 06:59 06:59 Intake Total 1310 Balance 1310 Result Diagrams: 02/03/18 22:48 02/03/18 22:48 <Amilcar Szymanski - Last Filed: 02/05/18 08:31> - Objective Vital Signs & Weight: Vital Signs (12 hours) Temp Pulse Resp BP Pulse Ox 02/05/18 12:14 98.6 F 75 18 95/50 L 94 L 02/05/18 11:37 98.6 F 75 18 95/50 L 94 L 02/05/18 08:07 98.2 F 75 18 120/71 94 L 02/05/18 07:46 98.3 F 79 16 02/05/18 05:14 98.3 F 79 16 132/83 94 L Weight Weight 82.962 kg I&O: 02/04/18 02/05/18 02/06/18 06:59 06:59 06:59 Intake Total 1310 Balance 1310 Result Diagrams: 02/03/18 22:48 02/03/18 22:48 <Rich Kay - Last Filed: 02/05/18 13:08> Phys Exam - Physical Examination Constitutional: NAD HEENT: PERRLA, moist MMs Neck: no nodes, full ROM Respiratory: no wheezing, clear to auscultation bilateral Cardiovascular: RRR, no significant murmur Gastrointestinal: soft, non-tender, no distention, positive bowel sounds Musculoskeletal: no edema, pulses present Neurological: non-focal, moves all 4 limbs Psychiatric: normal affect, A&O x 3 Skin: no rash, cap refill <2 seconds <Amilcar Szymanski - Last Filed: 02/05/18 08:31> Dx/Plan (1) Atypical chest pain Code(s): R07.89 - OTHER CHEST PAIN Status: Acute (2) Cardiac angina Code(s): I20.9 - ANGINA PECTORIS, UNSPECIFIED Status: Acute (3) Coronary artery disease Code(s): I25.10 - ATHSCL HEART DISEASE OF [place] CORONARY ARTERY W/O ANG PCTRS Status: Chronic QualifierTitle: Coronary Disease-Associated Artery/Lesion type: bypass graft [place] vs. transplanted heart: [place] heart Associated angina: with stable angina Qualified Code(s): I25.708 - Atherosclerosis of coronary artery bypass graft(s), unspecified, with other forms of angina pectoris (4) Diabetes mellitus type 2, uncontrolled Code(s): E11.65 - TYPE 2 DIABETES MELLITUS WITH HYPERGLYCEMIA Status: Chronic (5) HTN (hypertension) Code(s): I10 - ESSENTIAL (PRIMARY) HYPERTENSION Status: Chronic QualifierTitle: Hypertension type: essential hypertension Qualified Code( s): I10 - Essential (primary) hypertension (6) Hx of CABG Status: Chronic (7) Hypertriglyceridemia Code(s): E78.1 - PURE HYPERGLYCERIDEMIA Status: Chronic - Plan Plan: 1. Cardiac Angina - 2 day viability test pending - Ranexa increased 1,000mg BID - Aspirin - Appreciate Cards recomendations - pending viability may be candidate for cath vs possible CV consultation in [place] 2. CAD s/p CABG - Continue home meds 3. DM2 uncontrolled - accuchecks - SSI - Increased levemir to 60U BID 4. HLD - atorvastatin - fenofibrate 5. HTN - BP at goal - Continue home meds CODE STATUS: FULL CODE Disposition: pending viability test results <Amilcar Szymanski - Last Filed: 02/05/18 08:31> Attending Addendum - Attending Addendum Date/Time: 02/05/18 1300 I personally evaluated the patient and discussed the management with Dr. Szymanski I agree with the History, Examination, Assessment and Plan documented above with any addition or exceptions noted below. Patient with prior significant barriers to care; lack of funding, transportation etc.. addressed prior noncompliance and viable options reviewed. Further Cardiac evaluation pending stress testing. <Rich Kay - Last Filed: 02/05/18 13:08>
[2018-02-05] MEDS ORDERED: Fenofibrate 48 MG TAB PO SCH (09:00)
[2018-02-05] MEDS ORDERED: Insulin Detemir 100 UNITS/ML 60 UNITS in Pre-Filled Syringe 1 EACH SC SCH ×2 (09:00→21:00)
[2018-02-05] MEDS: Metoprolol Tartrate 50 MG TAB PO SCH (09:46)
[2018-02-05] MEDS: Aspirin 325 MG TAB PO SCH (09:46)
[2018-02-05] MEDS: HumaLOG 300 UNITS/3 ML VIAL SC PRN ×2 (09:46→12:16)
[2018-02-05] MEDS: Lisinopril 10 MG TAB PO SCH (09:47)
--- NOTE | 2018-02-05 10:40 | NM ---
CARDIAC SPECT (NUCLEAR MEDICINE MYOCARDIAL THALLIUM SCAN): HISTORY: Inferior scar. TECHNIQUE: A thallium viability scan was performed following the intravenous administration of 4 millicuries of thallium. Imaging was performed at 15 minutes and at 24 hours after the injection of the radiopharma ceutical. FINDINGS: Homogeneous tracer distribution is seen in the myocardial segments on the initial and delayed rest im ages. IMPRESSION: Normal thallium viability scan POS: [facility]
--- NOTE | 2018-02-05 12:02 | PDOC.EVN ---
Event Note - Event Note Event Note: stopped imdur secondary to low blood pressures to 90 sbp after giving bp meds <Amilcar Szymanski - Last Filed: 02/05/18 12:01> Attending Addendum - Attending Addendum Date/Time: 02/05/18 1331 I personally evaluated the patient and discussed the management with I agree with the History, Examination, Assessment and Plan documented above with any addition or exceptions noted below. Medicines reviewed for asymptomatic hypotension agree with stopping nitrate. <Rich Kay - Last Filed: 02/05/18 13:33>
[2018-02-05 16:05] VITALS: BP 93/54; TEMP 98.3
--- NOTE | 2018-02-05 17:24 | PDOC.CTH ---
Cardiology Progress Note - Subjective He is doing well. Chest pain is better. - Objective Vital Signs Temp Pulse Resp BP Pulse Ox 02/05/18 15:49 98.3 F 75 20 93/54 L 93 L 02/05/18 12:14 98.6 F 75 18 95/50 L 94 L 02/05/18 11:37 98.6 F 75 18 95/50 L 94 L 02/05/18 08:07 98.2 F 75 18 120/71 94 L 02/05/18 07:46 98.3 F 79 16 Weight 182 lb 14.4 oz 02/04/18 02/05/18 02/06/18 06:59 06:59 06:59 Intake Total 1310 Balance 1310 - Physical Examination General/Neuro: alert & oriented x3, NAD Neck: no JVD present Lungs: CTA, unlabored respirations Heart: RRR Abdomen: NT/ND Extremities: other: (no edema.) - Telemetry Telemetry Rhythm: NSR - Labs Result Diagrams: 02/03/18 22:48 02/03/18 22:48 Troponin/CKMB CK-MB (CK-2) 1.3 ng/mL (0-6.6) 02/03/18 22:48 Troponin I Less than 0.010 ng/mL (< 0.028) 02/04/18 05:00 - Assessment/Plan 1. Chronic chest pain 2. CAD s/p ODOM to LAD and chronically occluded RCA 3. Type 2 DM early onset PLAN: - Viability study was normal which would suggest that his blood flow to the inferior wall is normal at rest and after 24hrs. - He may be discharged home. - He will need evaluation of gallbladder disease and a CT chest with and without contrast as an outpatient. - Follow up with me as previously scheduled.
--- NOTE | 2018-02-05 21:28 | DIS-2 ---
DATE OF ADMISSION: 02/04/2018 DATE OF DISCHARGE: 02/05/2018 RESIDENT: Amilcar Szymanski M.D. ADMITTING ATTENDING: Marilee Coughlin D.O. DISCHARGE ATTENDING: Rich Kay MD CONSULTATIONS: Cardiology. PROCEDURES: Stress test. PRIMARY DIAGNOSIS: Chronic chest pain. SECONDARY DIAGNOSES: History of coronary artery disease, type 2 diabetes mellitus, hyperlipidemia. DISCHARGE MEDICATIONS: Atorvastatin 80 mg nightly, fenofibrate 48 mg daily, Levemir 60 units b.i.d., Ranexa 1000 mg b.i.d., lisinopril 10 mg daily, metoprolol 25 mg b.i.d., nitroglycerin. DISCONTINUED MEDICATIONS: Imdur. HISTORY OF PRESENT ILLNESS AND HOSPITAL COURSE: A 37-year-old male presented to the ED for evaluation of chest pain. He has had chronic issues with chest pain, he has had one ER visit per month at least over the last 12 months. He states that it has been getting worse over the last 3 weeks or so. He has known occlusive disease to the right coronary artery as well as ODOM to the LAD. He states that exertion has not worsened his pain, but he just has chronic left-sided chest pain described as squeezing all the time. He states that he has had palpitations and shortness of breath when he came in. He denies nausea, diaphoresis, headaches, or radiation of the pain. He was scheduled for a stress test this week, but did not think he will make it until that time. Stress Viability test was normal, which would suggest that the blood flow to the inferior wall is normal at rest and after 24 hours. He is being discharged home. He will need future evaluation of the gallbladder as well as a CT chest with and without contrast as an outpatient per Dr. Linton. He is to follow up with Dr. Linton as previously scheduled. The patient's insulin was increased during the hospitalization. He was also started on fenofibrate because of triglycerides greater than 1100. The patient has had very poor primary care followup. He was instructed that it is very important that he establish a PCP. He states he will follow up with [facility]. DISPOSITION: Guarded. Long-term prognosis. DISCHARGE INSTRUCTIONS: 1. Location: Home. 2. Diet: Diabetic, heart healthy. 3. Activity: As tolerated. 4. Followup: [facility] in 2-3 days, Dr. Linton as previously scheduled, we will order right upper quadrant ultrasound and CT chest through [facility]. MTDD
== END 2018-02-05 17:49 | disposition home or self-care (01) ==
LOC: ERS 22:34 → 2SW 23:42
PROVIDERS: ADMIT Family Medicine; ATTEND Family Medicine
DX: R07.9 Chest pain, unspecified (principal); I25.10 Atherosclerotic heart disease of native coronary artery without angina pectoris; E78.5 Hyperlipidemia, unspecified; M06.9 Rheumatoid arthritis, unspecified; G43.909 Migraine, unspecified, not intractable, without status migrainosus; I25.2 Old myocardial infarction; F17.220 Nicotine dependence, chewing tobacco, uncomplicated; F12.11 Cannabis abuse, in remission; E11.65 Type 2 diabetes mellitus with hyperglycemia; Z79.82 Long term (current) use of aspirin; Z79.4 Long term (current) use of insulin; Z79.899 Other long term (current) drug therapy; Z88.8 Allergy status to other drugs, medicaments and biological substances; Z95.1 Presence of aortocoronary bypass graft; Z91.048 Other nonmedicinal substance allergy status
CPT/HCPCS: 36415; 36416; 71045; 78466; 80053; 80061; 82553; 83036; 83690; 83735; 84100; 84484; 85025; 93005; 94760; 96374; A4216; A9505; G0378; J1815; J3010

== ENCOUNTER 2018-06-05 12:27 | Emergency (ER) | payer OTHER ==
[2018-06-05] MEDS ORDERED: Ketorolac Tromethamine 30 MG/ML VIAL ONE (13:01)
--- NOTE | 2018-06-05 13:47 | RAD ---
RIGHT SHOULDER THREE VIEWS: HISTORY: Pain x6 weeks. COMPARISON: 10/01/2015 FINDINGS: Calcification of the rotator cuff tendon insertion site is suspected. Limited evaluation of the michael ohumeral joint space. No definite fracture or dislocation. The visualized right ribs are unremarkab le. IMPRESSION: Calcification of the right rotator cuff tendon insertion site. POS: [facility]
== END 2018-06-05 14:21 | disposition home or self-care (01) ==
LOC: ERS 12:27
DX: M25.511 Pain in right shoulder (principal); Z71.6 Tobacco abuse counseling; G43.909 Migraine, unspecified, not intractable, without status migrainosus; I25.10 Atherosclerotic heart disease of native coronary artery without angina pectoris; I25.2 Old myocardial infarction; E11.9 Type 2 diabetes mellitus without complications; E78.5 Hyperlipidemia, unspecified; F41.9 Anxiety disorder, unspecified; F31.9 Bipolar disorder, unspecified; F17.220 Nicotine dependence, chewing tobacco, uncomplicated; Z79.4 Long term (current) use of insulin
CPT/HCPCS: 96372; 99406; J1885

== ENCOUNTER 2018-07-31 11:34 | Emergency (ER) | payer MEDICAID ==
--- NOTE | 2018-07-31 12:30 | RAD ---
FRONTAL VIEW CHEST: INDICATIONS: Chest pain. COMPARISON: 02/03/2018 FINDINGS: The lungs are clear. There is no effusion or pneumothorax. The cardiac silhouette is accentuated by the portable technique. Stable postoperative findings of sternotomy. Radiopaque curved density, co rrelating to metallic ornamentation, overlies the left lower chest. There is a linear radiopaque den sity overlying the right hemidiaphragm, not further localized. IMPRESSION: No focal consolidation. POS: [facility]
[2018-07-31 12:54] LABS: ALT (SGPT) 33 U/L (8-55); AST (SGOT) 25 U/L (5-34); Albumin 4.1 g/dL (3.5-5.0); Alkaline Phosphatase 79 U/L (40-150); Anion Gap 19 mmol/L (10-20); BUN (Urea Nitrogen) 10 mg/dL (8.9-20.6); Band 1 % (5-11); Bilirubin, Total 0.8 mg/dL (0.2-1.2); CK (CPK) 77 U/L (30-200); Calc. Creatinine Clearance 0 mL/min (70-130); Calcium 9.7 mg/dL (7.8-10.44); Carbon Dioxide 17 mmol/L (22-29); Chloride 99 mmol/L (98-107); Eosinophils 3 % (0-10); Estimated GFR-MDRD Greater than 90; Globulin 3.4 g/dL (2.4-3.5); Glucose 415 mg/dL (70-105); Hemoglobin 16.5 g/dL (14.0-18.0); Lymphocytes 62 % (21-51); MDiff Complete? YES; Mean Corpuscular HGB CONC 34.7 g/dL (32.0-36.0); Mean Corpuscular Hemoglobin 32.1 pg (27.0-31.0); Mean Corpuscular Volume 92.5 fL (78.0-98.0); Mean Platelet Volume 7.2 fL (7.4-10.4); Monocytes 5 % (0-10); Neutrophil 28 % (42-75); Platelet Count 232 thou/uL (130-400); Potassium 4.4 mmol/L (3.5-5.1); Protein, Total 7.5 g/dL (6.0-8.3); RBC Distribution Width 12.5 % (11.5-14.5); RBC Morphology Normal; Reactive Lymphocytes 1 % (0-10); Red Blood Cell (RBC) Count 5.13 mill/uL (4.70-6.10); Sodium 131 mmol/L (136-145); White Blood Cell (WBC) Count 4.5 thou/uL (4.8-10.8)
[2018-07-31 12:59] LABS: CKMB 1.8 ng/mL (0-6.6); Troponin I Less than 0.010 ng/mL (< 0.028)
--- NOTE | 2018-07-31 13:33 | CT ---
CTA AORTIC DISSECTION PROTOCOL WITH 3D REFORMATS: Date: 07/31/18 INDICATION: Chest pain radiating into the back. The patient is also having history of shortness of breath. FINDINGS: No aortic stenosis, occlusion, or aneurysmal formation is evident. There is postsurgical change of pr ior coronary artery bypass. The celiac, SMA, renal, and DIDI arteries are widely patent. There is a ci rcumaortic left renal vein. No definite central pulmonary embolus is evident. There are prominent coronary artery calcifications. There is mils scarring within the right upper lob e. No confluent air space opacity is evident. No pathologically enlarged lymph nodes are evident. There is fatty infiltration of the liver. The gallbladder is surgically absent. The spleen, pancreas, adrenal glands, and kidneys appear within normal limits. There is moderate atherosclerotic calcification involving the abdominal aorta. No free fluid or enlarged lymph nodes are evident. There is a mild amount of retained stool within the visualized colon. Visualized small bowel is unremarkable appearing. There is scattered degenerative and osteoarthritic change. IMPRESSION: 1. No acute aortic stenosis, occlusion, or aneurysmal formation. 2. Moderate atherosclerotic calcification of the abdominal aorta. 3. Celiac, SMA, renal artery, and DIDI appear widely patent. 4. No definite central pulmonary embolus demonstrated. 5. Findings of prior coronary artery bypass. 6. Fatty liver. 7. Cholecystectomy. 8. Mild amount of retained stool within the colon. POS: [facility]
[2018-07-31] MEDS ORDERED: ISOVUE-370 76%-LOCM 1 ML ONE (16:08)
== END 2018-07-31 18:24 | disposition left against medical advice (07) ==
LOC: ERS 11:34
DX: R07.9 Chest pain, unspecified (principal); R06.02 Shortness of breath; R11.0 Nausea; G43.909 Migraine, unspecified, not intractable, without status migrainosus; I25.10 Atherosclerotic heart disease of native coronary artery without angina pectoris; I25.2 Old myocardial infarction; E11.9 Type 2 diabetes mellitus without complications; E78.5 Hyperlipidemia, unspecified; F41.9 Anxiety disorder, unspecified; F31.9 Bipolar disorder, unspecified; F17.220 Nicotine dependence, chewing tobacco, uncomplicated; Z79.4 Long term (current) use of insulin; Z79.899 Other long term (current) drug therapy; Z79.82 Long term (current) use of aspirin
CPT/HCPCS: 36415; 71045; 71275; 80053; 82553; 84484; 85025; 93005; 94760; 96374; J2270

== ENCOUNTER 2018-09-19 08:04 | Emergency (ER) | payer MEDICAID, OTHER ==
[2018-09-19 08:48] LABS: Bilirubin Negative (Negative); Blood, Urine Trace (Negative); Clarity Clear (Clear); Glucose, Urine (Dipstick) 500 mg/dL (Negative); Leukocyte Negative (Negative); Nitrite Negative (Negative); Protein, Urine (Dipstick) Negative (Neg-Trace); Specific Gravity, Urine 1.015 (1.005-1.030); Urobilinogen 0.2 mg/dL (0.2-1.0); pH, Urine 6.5 (5.0-9.0)
--- NOTE | 2018-09-19 08:49 | RAD ---
CHEST TWO VIEWS: History: Cough. Chest pain. Comparison: 01-06-18 FINDINGS: Cardiac silhouette and pulmonary vasculature are unremarkable. Mediastinum is midline with post-opera tive changes. No confluent airspace consolidation, pneumothorax, or pleural fluid. IMPRESSION: No active cardiopulmonary abnormalities are demonstrated. POS: [facility]
[2018-09-19 09:02] LABS: Bacteria/HPF None Seen HPF (None Seen); Squamous Epithelial 0-3 HPF (0-3); WBC/HPF None Seen HPF (0-3)
== END 2018-09-19 09:39 | disposition home or self-care (01) ==
LOC: SCSER 08:04
DX: J02.9 Acute pharyngitis, unspecified (principal); R10.9 Unspecified abdominal pain; R06.02 Shortness of breath; E11.65 Type 2 diabetes mellitus with hyperglycemia; G43.909 Migraine, unspecified, not intractable, without status migrainosus; I25.10 Atherosclerotic heart disease of native coronary artery without angina pectoris; I25.2 Old myocardial infarction; E11.9 Type 2 diabetes mellitus without complications; E78.5 Hyperlipidemia, unspecified; F31.9 Bipolar disorder, unspecified; F41.9 Anxiety disorder, unspecified; Z87.891 Personal history of nicotine dependence; Z79.899 Other long term (current) drug therapy; Z79.4 Long term (current) use of insulin
CPT/HCPCS: 71046; 81003; 81015; 87804

== ENCOUNTER 2018-09-24 09:41 | Emergency (ER) | payer OTHER | END 2018-09-24 10:35 | disposition left against medical advice (07) | LOC: ERS 09:41 | DX: Z53.21 Procedure and treatment not carried out due to patient leaving prior to being seen by health care provider (principal) ==

== ENCOUNTER 2018-10-11 14:06 | Emergency (ER) | payer OTHER ==
[2018-10-11] MEDS ORDERED: Water For Inject, Bacteriostat 30 ML ONE (14:42)
[2018-10-11] MEDS ORDERED: methylPREDNISolone Sod Succ/PF 125 MG/2 ML VIAL ONE (14:42)
[2018-10-11 14:43] LABS: #Basophils 0.1 thou/uL (0.0-0.2); #Eosinphils 0.1 thou/uL (0.0-0.7); #Lymphocytes 1.5 thou/uL (1.20-3.40); #Monocytes 0.4 thou/uL (0.11-0.59); #Neutrophils 2.6 thou/uL (1.40-6.50); %Basophils 1.8 % (0.0-1.0); %Eosinophils 2.1 % (0.0-10.0); %Lymphocytes 32.1 % (21.0-51.0); Hemoglobin 15.9 g/dL (14.0-18.0); Mean Corpuscular HGB CONC 33.7 g/dL (32.0-36.0); Mean Corpuscular Hemoglobin 31.2 pg (27.0-31.0); Mean Corpuscular Volume 92.7 fL (78.0-98.0); Mean Platelet Volume 7.5 fL (7.4-10.4); Platelet Count 198 thou/uL (130-400); RBC Distribution Width 11.9 % (11.5-14.5); Red Blood Cell (RBC) Count 5.09 mill/uL (4.70-6.10); White Blood Cell (WBC) Count 4.6 thou/uL (4.8-10.8)
[2018-10-11 14:53] LABS: ALT (SGPT) 26 U/L (8-55); AST (SGOT) 14 U/L (5-34); Alkaline Phosphatase 85 U/L (40-150); Anion Gap 19 mmol/L (10-20); BUN (Urea Nitrogen) 14 mg/dL (8.9-20.6); Bilirubin, Total 0.7 mg/dL (0.2-1.2); CK (CPK) 54 U/L (30-200); Calc. Creatinine Clearance 0 mL/min (70-130); Calcium 9.3 mg/dL (7.8-10.44); Carbon Dioxide 19 mmol/L (22-29); Chloride 99 mmol/L (98-107); Estimated GFR-MDRD Greater than 90; Globulin 3.3 g/dL (2.4-3.5); Glucose 515 mg/dL (70-105); Lipase 30 U/L (8-78); Potassium 4.3 mmol/L (3.5-5.1); Protein, Total 7.3 g/dL (6.0-8.3); Sodium 133 mmol/L (136-145)
--- NOTE | 2018-10-11 15:25 | RAD ---
CHEST 1 VIEW: HISTORY: Chest pain. COMPARISON: Radiograph 07/31/2018. FINDINGS: Lungs are clear. No pneumothorax or effusion. Three upper sternotomy wires are present. No evidenc e for sternal dehiscence. No acute osseous abnormality. IMPRESSION: No acute intrathoracic abnormality. POS: [facility]
== END 2018-10-11 15:38 | disposition home or self-care (01) ==
LOC: SCSER 14:06
DX: M54.12 Radiculopathy, cervical region (principal); E11.65 Type 2 diabetes mellitus with hyperglycemia; I25.10 Atherosclerotic heart disease of native coronary artery without angina pectoris; G43.909 Migraine, unspecified, not intractable, without status migrainosus; F41.9 Anxiety disorder, unspecified; F32.9 Major depressive disorder, single episode, unspecified; F17.220 Nicotine dependence, chewing tobacco, uncomplicated; I25.2 Old myocardial infarction
CPT/HCPCS: 71045; 80053; 82550; 83690; 84484; 85025; 93005; 94760; 96374; J2930

== ENCOUNTER 2018-10-17 23:15 | Emergency (ER) | payer MEDICAID ==
[2018-10-17] MEDS ORDERED: Acetaminophen 500 MG TAB ONE (23:44)
[2018-10-17 23:57] LABS: #Eosinphils 0.2 thou/uL (0.0-0.7); #Lymphocytes 0.6 thou/uL (1.20-3.40); #Monocytes 0.4 thou/uL (0.11-0.59); #Neutrophils 5.4 thou/uL (1.40-6.50); %Basophils 0.3 % (0.0-1.0); %Eosinophils 2.5 % (0.0-10.0); %Lymphocytes 9.1 % (21.0-51.0); %Monocytes 6.5 % (0.0-10.0); %Neutrophils 81.5 % (42.0-75.0); Hemoglobin 16.1 g/dL (14.0-18.0); Mean Corpuscular HGB CONC 35.2 g/dL (32.0-36.0); Mean Corpuscular Hemoglobin 33.2 pg (27.0-31.0); Mean Corpuscular Volume 94.4 fL (78.0-98.0); Mean Platelet Volume 7.3 fL (7.4-10.4); Platelet Count 196 thou/uL (130-400); RBC Distribution Width 12.9 % (11.5-14.5); Red Blood Cell (RBC) Count 4.85 mill/uL (4.70-6.10); White Blood Cell (WBC) Count 6.6 thou/uL (4.8-10.8)
[2018-10-18 00:16] LABS: ALT (SGPT) 28 U/L (8-55); AST (SGOT) 15 U/L (5-34); Albumin 3.7 g/dL (3.5-5.0); Alkaline Phosphatase 78 U/L (40-150); Anion Gap 14 mmol/L (10-20); BUN (Urea Nitrogen) 16 mg/dL (8.9-20.6); Calc. Creatinine Clearance 0 mL/min (70-130); Calcium 8.5 mg/dL (7.8-10.44); Carbon Dioxide 23 mmol/L (22-29); Chloride 103 mmol/L (98-107); Estimated GFR-MDRD Greater than 90; Globulin 2.6 g/dL (2.4-3.5); Glucose 373 mg/dL (70-105); Potassium 4.5 mmol/L (3.5-5.1); Protein, Total 6.3 g/dL (6.0-8.3); Sodium 135 mmol/L (136-145)
[2018-10-18 00:21] LABS: Bilirubin Negative (Negative); Blood, Urine Negative (Negative); Clarity CLEAR (Clear); Glucose, Urine (Dipstick) >=1000 mg/dL (Negative); Leukocyte Negative (Negative); Nitrite Negative (Negative); Protein, Urine (Dipstick) Negative (Neg-Trace); Specific Gravity, Urine 1.031 (1.002-1.036); Urobilinogen 0.2 mg/dL (0.2-1.0); pH, Urine 5.5 (5.0-9.0)
[2018-10-18] MEDS ORDERED: Lidocaine 1% PF 5 ML VIAL ONE (01:54)
[2018-10-18 02:46] LABS: CSF, Glucose 204 mg/dl (40-70); CSF, Protein 94 mg/dL (15-40)
[2018-10-18 02:55] LABS: CSF Source CSF; Clarity Clear (Clear); RBC Count - Manual 0 /cumm (None Seen); Tube # 4; WBC/NonHematics Count - Manual 2 /cumm (0-5)
[2018-10-18 03:34] LABS: Color Of CSF Supernatant COLORLESS (Colorless); Unspun CSF Color COLORLESS (Colorless)
[2018-10-18 03:35] LABS: Tube # 2
== END 2018-10-18 03:26 | disposition home or self-care (01) ==
LOC: ERS 23:15
DX: R41.82 Altered mental status, unspecified (principal); B34.9 Viral infection, unspecified; R19.7 Diarrhea, unspecified; I25.10 Atherosclerotic heart disease of native coronary artery without angina pectoris; I25.2 Old myocardial infarction; E11.9 Type 2 diabetes mellitus without complications; G43.909 Migraine, unspecified, not intractable, without status migrainosus; F31.9 Bipolar disorder, unspecified; F17.220 Nicotine dependence, chewing tobacco, uncomplicated; Z79.899 Other long term (current) drug therapy
CPT/HCPCS: 36415; 62270; 80053; 81003; 82945; 83605; 83880; 84157; 84484; 85025; 87040; 87070; 87205; 87804; 89051; 93005; J2001

== ENCOUNTER 2019-04-24 19:37 | Emergency (ER) | payer OTHER ==
[2019-04-24 20:38] LABS: #Eosinphils 0.1 thou/uL (0.0-0.7); #Lymphocytes 1.7 thou/uL (1.20-3.40); #Monocytes 0.6 thou/uL (0.11-0.59); #Neutrophils 4.4 thou/uL (1.40-6.50); %Basophils 0.7 % (0.0-1.0); %Lymphocytes 24.7 % (21.0-51.0); %Monocytes 8.6 % (0.0-10.0); Hemoglobin 15.2 g/dL (14.0-18.0); Mean Corpuscular HGB CONC 34.1 g/dL (32.0-36.0); Mean Corpuscular Hemoglobin 31.8 pg (27.0-31.0); Mean Corpuscular Volume 93.2 fL (78.0-98.0); Mean Platelet Volume 7.1 fL (7.4-10.4); Platelet Count 228 thou/uL (130-400); RBC Distribution Width 12.8 % (11.5-14.5); Red Blood Cell (RBC) Count 4.77 mill/uL (4.70-6.10); White Blood Cell (WBC) Count 6.8 thou/uL (4.8-10.8)
[2019-04-24] MEDS ORDERED: Mag-Al 1200 mg/1200 mg/30 ML UDCUP ONE (20:46)
[2019-04-24] MEDS ORDERED: Lidocaine Viscous Sol 2% 15 ml UD Cup ONE (20:46)
[2019-04-24 21:01] LABS: ALT (SGPT) 18 U/L (8-55); AST (SGOT) 12 U/L (5-34); Albumin 3.9 g/dL (3.5-5.0); Alkaline Phosphatase 69 U/L (40-150); Anion Gap 16 mmol/L (10-20); BUN (Urea Nitrogen) 19 mg/dL (8.9-20.6); Bilirubin, Total 0.4 mg/dL (0.2-1.2); Calc. Creatinine Clearance 0 mL/min (70-130); Calcium 9.5 mg/dL (7.8-10.44); Carbon Dioxide 26 mmol/L (22-29); Chloride 100 mmol/L (98-107); Estimated GFR-MDRD Greater than 90; Globulin 2.4 g/dL (2.4-3.5); Glucose 226 mg/dL (70-105); Potassium 3.8 mmol/L (3.5-5.1); Protein, Total 6.3 g/dL (6.0-8.3); Sodium 138 mmol/L (136-145)
[2019-04-24 21:05] LABS: Troponin I Less than 0.010 ng/mL (< 0.028)
[2019-04-25 00:03] LABS: Troponin I 0.025 ng/mL (< 0.028)
== END 2019-04-25 00:17 | disposition home or self-care (01) ==
LOC: ERS 19:37
DX: R20.2 Paresthesia of skin (principal); I25.2 Old myocardial infarction; E11.9 Type 2 diabetes mellitus without complications; M19.90 Unspecified osteoarthritis, unspecified site; F17.220 Nicotine dependence, chewing tobacco, uncomplicated; F41.9 Anxiety disorder, unspecified; F31.9 Bipolar disorder, unspecified; Z86.711 Personal history of pulmonary embolism; Z79.4 Long term (current) use of insulin; Z79.899 Other long term (current) drug therapy; Z79.891 Long term (current) use of opiate analgesic
CPT/HCPCS: 36415; 36416; 80053; 82010; 82550; 84484; 85025; 93005; 96360

== ENCOUNTER 2019-04-26 18:42 | Emergency (ER) | payer OTHER ==
[2019-04-26] MEDS ORDERED: Acetaminophen 500 MG TAB ONE (20:08)
[2019-04-26] MEDS ORDERED: Cyclobenzaprine 10 MG TAB ONE (20:08)
== END 2019-04-26 20:25 | disposition home or self-care (01) ==
LOC: ERS 18:42
DX: M54.5 Low back pain (principal); I25.10 Atherosclerotic heart disease of native coronary artery without angina pectoris; I25.2 Old myocardial infarction; E11.9 Type 2 diabetes mellitus without complications; E78.5 Hyperlipidemia, unspecified; Z86.711 Personal history of pulmonary embolism; F41.9 Anxiety disorder, unspecified; F31.9 Bipolar disorder, unspecified; Z79.899 Other long term (current) drug therapy; Z79.4 Long term (current) use of insulin; V43.62XA Car passenger injured in collision with other type car in traffic accident, initial encounter
CPT/HCPCS: 99283

== ENCOUNTER 2019-06-13 20:11 | Observation (INO) | payer OTHER ==
[2019-06-13] MEDS ORDERED: Aspirin Chewable 81 MG TAB ONE (20:55)
[2019-06-13 21:17] LABS: Anion Gap 16 mmol/L (10-20); BUN (Urea Nitrogen) 15 mg/dL (8.9-20.6); Calc. Creatinine Clearance 0 mL/min (70-130); Carbon Dioxide 23 mmol/L (22-29); Chloride 98 mmol/L (98-107); Estimated GFR-MDRD 84; Glucose 379 mg/dL (70-105); Potassium 4.4 mmol/L (3.5-5.1); Sodium 133 mmol/L (136-145)
--- NOTE | 2019-06-13 22:58 | PDOC.FPRHP ---
- History of Present Illness Chief Complaint: chest pain History of Present Illness: 39 y/o male patient, with a pmhx of CAD with CABG, migraines, and OA, presents to the ED after gradually worsening CP. The pain has been present for X2 weeks off and on. he states the pain started today around 9 AM, was constant and made his L arm and L fingers feel numb/tingle. He feels fluctuating palpitations. Pt c/o Nause and diarrhea. Denies Vomiting and diaphoresis. He has had some LE swelling that is better now. Pt c/o chronic headaches and a UREÑA that was present today. He denies any SOB, except for PND occurring X1.5 wks ago. Pt was found to have a blood glucose >500 in the ED, with anion gap of 15. No EKG changes. Pt states he had an episode of Chest pain he was hospitalized for in March, and his upper shaper wanted to cath him if he had more episodes. Stress testing did not show much change per patient on last stress test. - Allergies/Adverse Reactions Allergies Allergy/AdvReac Type Severity Reaction Status Date / Time adhesive tape Allergy Verified 06/14/19 01:40 metoclopramide [From Reglan] AdvReac Severe HALLUCINATI Verified 06/14/19 01:40 ONS - Home Medications Medication Instructions Recorded Confirmed Type HumaLOG [HumaLOG Vial] 0 unit SC TID-WM PRN 02/04/18 06/14/19 History Atorvastatin Calcium [Lipitor] 40 mg PO HS #60 tab 03/25/19 06/14/19 Rx Carvedilol [Coreg] 6.25 mg PO BID #60 tab 03/25/19 Rx Fenofibrate [Tricor] 48 mg PO DAILY #60 tab 03/25/19 06/14/19 Rx Isosorbide Mononitrate [Imdur ER] 30 mg PO DAILY #30 tab 03/25/19 06/14/19 Rx Nitroglycerin [Nitrostat] 0.4 mg PO Q5MIN PRN #15 tab 03/25/19 06/14/19 Rx Aspirin [Ecotrin] 81 mg PO DAILY 06/14/19 06/14/19 History Insulin Detemir 100 UNITS/ML 62 units SC BID 06/14/19 06/14/19 History [Levemir] - History PMHx: MS, CAD, DM insulin dependent, OA, migraines, HLD, PE on R side PSHx: CABG, Cholecystectomy, R-knee sx FHx: mom: breast CA, MS in 40's, CAD, HTN, HLD Social: dips tobacco, 30 pack year smoker, quit 10 years ago. denies drug or etoh use. - Review of Systems General: denies: fever/chills, night sweats Respiratory: reports: shortness of breath. denies: cough, congestion Cardiovascular: reports: chest pain, palpitation, edema, paroxysmal nocturnal dyspnea. denies: orthopnea Gastrointestinal: reports: nausea, diarrhea. denies: vomiting Skin: denies: rashes, lesions Musculoskeletal: reports: pain Neurological: denies: syncope, weakness - Vital signs BP: 144/89 HR: 84 RR: 18 Tmax: 98.5 Pox: 99% on RA Wt: 79.69 - Physical Exam Constitutional: NAD, awake, alert and oriented, well developed HEENT: normocephalic and atraumatic, PERRLA, EOMI, conjunctiva clear, no scleral icterus, grossly normal vision, grossly normal hearing, MMM Neck: supple, FROM, trachea midline, no LAD, no JVD Heart: RRR, normal S1/S2, no murmurs/rubs/gallops, pulses present, no edema Lungs: CTAB, no respiratory distress, good air movement, no rales/rhonchi, no wheezing, no retractions Abdomen: soft, non-tender, bowel sounds present, no masses/distention Musculoskeletal: normal structure, normal tone, ROM grossly normal Neurological: no focal deficit Skin: no rash/lesions, good turgor, no jaundice Heme/Lymphatic: no unusual bruising or bleeding, no purpura, no petechia Psychiatric: normal mood and affect, good judgment and insight, intact recent and remote memory FMR H&P: Results - Labs Result Diagrams: 06/13/19 20:41 Lab results: Sodium 133 mmol/L (136-145) L 06/13/19 20:41 Potassium 4.4 mmol/L (3.5-5.1) 06/13/19 20:41 Chloride 98 mmol/L (98-107) 06/13/19 20:41 Carbon Dioxide 23 mmol/L (22-29) 06/13/19 20:41 BUN 15 mg/dL (8.9-20.6) 06/13/19 20:41 Creatinine 0.98 mg/dL (0.7-1.3) 06/13/19 20:41 Glucose 379 mg/dL (70-105) H 06/13/19 20:41 Calcium 10.0 mg/dL (7.8-10.44) 06/13/19 20:41 Laboratory Tests 06/13/19 06/13/19 06/13/19 20:41 20:41 20:41 Glucose 379 H POC Glucose Troponin I Less than 0.010 B-Hydroxybutyrate 0.15 06/13/19 06/13/19 06/14/19 20:48 23:44 00:55 Glucose POC Glucose 347 H 408 H Troponin I Less than 0.010 B-Hydroxybutyrate 06/14/19 02:46 Glucose POC Glucose Troponin I Less than 0.010 B-Hydroxybutyrate - EKG Interpretation EKG: no significant changes from prior EKG . FMR H&P: A/P - Problem List (1) Angina at rest Current Visit: Yes Status: Acute Code(s): I20.8 - OTHER FORMS OF ANGINA PECTORIS (2) Coronary artery disease Current Visit: No Status: Chronic Code(s): I25.10 - ATHSCL HEART DISEASE OF [place] CORONARY ARTERY W/O ANG PCTRS Qualifiers: Coronary Disease-Associated Artery/Lesion type: bypass graft [place] vs. transplanted heart: [place] heart Associated angina: with stable angina Qualified Code(s): I25.708 - Atherosclerosis of coronary artery bypass graft(s) , unspecified, with other forms of angina pectoris (3) Diabetes mellitus type 2, uncontrolled Current Visit: No Status: Chronic Code(s): E11.65 - TYPE 2 DIABETES MELLITUS WITH HYPERGLYCEMIA (4) HLD (hyperlipidemia) Current Visit: No Status: Chronic Code(s): E78.5 - HYPERLIPIDEMIA, UNSPECIFIED Qualifiers: Hyperlipidemia type: mixed hyperlipidemia Qualified Code(s): E78.2 - Mixed hyperlipidemia (5) HTN (hypertension) Current Visit: No Status: Chronic Code(s): I10 - ESSENTIAL (PRIMARY) HYPERTENSION Qualifiers: Hypertension type: essential hypertension Qualified Code(s): I10 - Essential (primary) hypertension (6) Hx of CABG Current Visit: No Status: Chronic (7) Migraine headache Current Visit: No Status: Chronic Code(s): G43.909 - MIGRAINE, UNSP, NOT INTRACTABLE, WITHOUT STATUS MIGRAINOSUS Qualifiers: - Plan 39 y/o M pt admitted to Tele observation for ACS rule out, for angina at rest. 1. Unstable Angina - At rest, not alleviated by medication - negative trops X3 - Cardiology consultation, possible cath - Prior stress testing did not sow significant blockage 2. Known CAD, requiring CABG 3. DM Type II, insulin dependent and uncontrolled - restarted home insulin dose and SSI 4. HTN - BP 144/89 - restarted home medications 5. HLD - restarted home statin 6. Migraine Headache, improved - chronic problem, acute headache improved Code status: full code DVT ppx: SCD's FMR H&P: Upper Level - Pertinent history 39 yo male presents for evaluation of chest pain. Patient was admitted in March 2019 with unremarkable workup. He was seen by Cardiology at that time and had some medication changes and recommended to have a heart catheterization. Please see physician general internal medicine note above for further information. General: Male appears stated age, NAD HEENT: Moist mucous membranes CV: Regular rate and regular rhythm, no murmurs Respiratory: CTA-bilaterally Abdomen: Soft, nontender, no distention Normoactive BS Extremities: Moving all four symmetrically, no edema Neuro: No focal deficits Psych: A&O x3. Responds appropriately. - Plan Date/Time: 06/13/19 4027 IJono MD, have evaluated this patient and agree with findings/ plan as outlined by physician general internal medicine resident. Pertinent changes/additions are listed here. Chest Pain - Negative workup in March 2019 - Will admit for cardiology consultation - Will likely need cardiac catheterization DM2 - Very poorly controlled - Resume home meds - Accuchecks CAD - s/p previous CABG - see above PCP: Dr. Washington CODE STATUS: FULL CODE Disposition: Stable, will admit for further evaluation and workup.
[2019-06-14 00:19] LABS: Troponin I Less than 0.010 ng/mL (< 0.028)
[2019-06-14 00:31] VITALS: BMI 26.6
[2019-06-14] MEDS ORDERED: Dextrose 5% in Water 1,000 ML IV PRN (01:24)
[2019-06-14] MEDS ORDERED: Ondansetron ODT 4 MG TAB PO PRN (01:24)
[2019-06-14] MEDS ORDERED: HumaLOG 300 UNITS/3 ML VIAL SC PRN (01:24)
[2019-06-14] MEDS ORDERED: Dextrose 50% Abboject 50 ML SYRINGE SLOW IVP PRN (01:24)
[2019-06-14] MEDS ORDERED: Nitroglycerin 0.4 MG TAB (25 Tab Bottle) PO PRN (01:24)
[2019-06-14] MEDS ORDERED: Ondansetron PF 4 MG/2 ML Vial IVP PRN (01:24)
[2019-06-14] MEDS ORDERED: Acetaminophen 325 MG TAB PO PRN (01:24)
[2019-06-14] MEDS ORDERED: INSULIN DETEMIR SC SCH ×2 (01:54→09:00)
[2019-06-14 03:17] LABS: Troponin I Less than 0.010 ng/mL (< 0.028)
--- NOTE | 2019-06-14 05:28 | PDOC.FM ---
- Subjective Subjective: NAEO. Pt reports the chest pain is still present. He was sleeping at that time. Pt denies SOB, nausea, vomiting, or sweating. No needs at this time. - Objective MAR Reviewed: Yes Vital Signs & Weight: Vital Signs (12 hours) Temp Pulse Resp BP Pulse Ox 06/14/19 03:51 98.5 F 73 13 133/77 97 06/14/19 01:24 98 06/13/19 23:54 98.0 F 83 16 145/82 H 98 Weight Weight 79.696 kg I&O: 06/12/19 06/13/19 06/14/19 06:59 06:59 06:59 Intake Total 100 Balance 100 Result Diagrams: 06/13/19 20:41 Phys Exam - Physical Examination Constitutional: NAD HEENT: moist MMs Neck: no JVD Respiratory: no wheezing, clear to auscultation bilateral Cardiovascular: RRR, no significant murmur Gastrointestinal: soft, non-tender, no distention, positive bowel sounds Musculoskeletal: no edema, pulses present Neurological: moves all 4 limbs Psychiatric: A&O x 3 Skin: cap refill <2 seconds Dx/Plan (1) Atypical chest pain Code(s): R07.89 - OTHER CHEST PAIN Status: Acute (2) Coronary artery disease Code(s): I25.10 - ATHSCL HEART DISEASE OF [place] CORONARY ARTERY W/O ANG PCTRS Status: Chronic Qualifiers: Coronary Disease-Associated Artery/Lesion type: bypass graft [place] vs. transplanted heart: [place] heart Associated angina: with stable angina Qualified Code(s): I25.708 - Atherosclerosis of coronary artery bypass graft(s) , unspecified, with other forms of angina pectoris (3) Diabetes mellitus type 2, uncontrolled Code(s): E11.65 - TYPE 2 DIABETES MELLITUS WITH HYPERGLYCEMIA Status: Chronic (4) HLD (hyperlipidemia) Code(s): E78.5 - HYPERLIPIDEMIA, UNSPECIFIED Status: Chronic Qualifiers: Hyperlipidemia type: mixed hyperlipidemia Qualified Code(s): E78.2 - Mixed hyperlipidemia (5) HTN (hypertension) Code(s): I10 - ESSENTIAL (PRIMARY) HYPERTENSION Status: Chronic Qualifiers: Hypertension type: essential hypertension Qualified Code(s): I10 - Essential (primary) hypertension (6) Hx of CABG Status: Chronic - Plan Plan: This is a 39 yo male with a pmh of HTN, CAD w/ hx of CABG, IDDM2, HLD, Hx of PE Atypical chest pain -NPO -Plan for heart cath -nitro, morphine for pain relief -Repeat EKG/troponins if pain continues -Pt was told if after last chest pain admission, he would need a cath -Troponin negative x3 CAD with hx of CAD in 2014 -As above -Continue aspirin and statin therapy IDDM2 -Continue home medications -SSI and hypoglycemic protocol in place -Elevated BG on admission, anion gap calculated at 12.0, bicarb 23 HLD -As above HTN -Continue home carvedilol
[2019-06-14] MEDS ORDERED: Aspirin 81 mg Enteric Coated Tablet PO SCH (09:00)
[2019-06-14] MEDS ORDERED: Fenofibrate 48 MG TAB PO SCH (09:00)
[2019-06-14] MEDS ORDERED: Aspirin 325 mg Enteric Coated Tablet PO SCH (09:00)
[2019-06-14] MEDS ORDERED: Carvedilol 6.25 MG TAB PO SCH (09:00)
[2019-06-14] MEDS ORDERED: Isosorbide Mononitrate (ER) 30 MG TAB PO SCH (09:00)
[2019-06-14] MEDS ORDERED: Enoxaparin Sodium 40 MG/0.4 ML SYRINGE SC SCH (09:00)
[2019-06-14] MEDS: Insulin Glargine 62 UNITS in Pre-Filled Syringe 1 EACH SC SCH ×2 (09:50→11:23)
[2019-06-14 12:02] VITALS: BP 116/80; TEMP 98.1
--- NOTE | 2019-06-14 12:30 | HP ---
HISTORY OF PRESENT ILLNESS: I have examined the patient. I have discussed the case with Dr. Leda Lund and agree with her assessment and plan. Mr. Acosta is a 39-year-old man, who had a history of CABG in the past. He had been hospitalized earlier this year with some chest discomfort. Telephone Service Adviser said at that time that if he continued to have discomfort, he would likely need a repeat cardiac catheterization. He came in with some atypical type chest pain symptoms and that they occurred at rest, but were described as tight and radiating into his left arm. They were relieved with nitroglycerin and were unassociated with nausea or diaphoresis. PHYSICAL EXAMINATION: GENERAL: This morning, he is pain-free and in no acute distress. He is awake and alert. VITAL SIGNS: His blood pressure is 144/89, heart rate is 88. He is afebrile. Respirations 18. EARS, NOSE, AND THROAT: No erythema or exudate. NECK: Supple. No JVD. CARDIAC: PMI is in the fifth intercostal space. S4 gallop. No murmur or rub noted. LUNGS: Clear without rales or wheezes. ABDOMEN: Obese, but flat and soft. No guarding, rebound, or rigidity. NEUROLOGIC: No focal deficits. LABORATORY DATA: Glucose ranging between 260 and 400. His troponins are less than 0.01 x3. ASSESSMENT: Chest pain in a patient with known coronary artery disease. PLAN: We will consult Cardiology, but likely plan on catheterization for Sunday. Job ID: [id number]
--- NOTE | 2019-06-22 02:04 | EKG ---
Test Reason : CP Blood Pressure : / mmHG Vent. Rate : 081 BPM Atrial Rate : 081 BPM P-R Int : 160 ms QRS Dur : 140 ms QT Int : 388 ms P-R-T Axes : 044 -13 045 degrees QTc Int : 450 ms Normal sinus rhythm Right bundle branch block Voltage criteria for left ventricular hypertrophy Abnormal ECG No changes from 24-APR-2019 Confirmed by JOSE POLLOCK DO ([id number]), general expeditor DARI SANCHEZ ([id number]) on 06/22/2019 2:03:34 AM Referred By: PHILL Confirmed By:JOSE POLLOCK DO
== END 2019-06-14 15:04 | disposition left against medical advice (07) ==
LOC: ERS 20:11 → 2SW 22:00
PROVIDERS: ADMIT Family Medicine; ATTEND Family Medicine
DX: I25.118 Atherosclerotic heart disease of native coronary artery with other forms of angina pectoris (principal); G43.909 Migraine, unspecified, not intractable, without status migrainosus; M19.90 Unspecified osteoarthritis, unspecified site; I25.2 Old myocardial infarction; E78.2 Mixed hyperlipidemia; E11.65 Type 2 diabetes mellitus with hyperglycemia; F12.10 Cannabis abuse, uncomplicated; F17.220 Nicotine dependence, chewing tobacco, uncomplicated; Z86.711 Personal history of pulmonary embolism; Z79.4 Long term (current) use of insulin; Z79.82 Long term (current) use of aspirin; Z79.899 Other long term (current) drug therapy; Z91.048 Other nonmedicinal substance allergy status; Z95.1 Presence of aortocoronary bypass graft
CPT/HCPCS: 36415; 36416; 82010; 84484; 93005; 94760; G0378; J1650; J1815

== ENCOUNTER 2019-06-29 12:41 | Observation (INO) | payer OTHER ==
[2019-06-29] MEDS ORDERED: Acetaminophen 500 MG TAB ONE (13:11)
[2019-06-29] MEDS ORDERED: Nitroglycerin 2% Ointment 1 INCH/1 GM Packet ONE (13:11)
--- NOTE | 2019-06-29 13:15 | RAD ---
Exam: Chest one view HISTORY:Chest pain Comparison: 10/28/2018 FINDINGS: Cardiac silhouette: Normal Aorta: Unremarkable Pulmonary vessels: Normal Costophrenic angles: Clear LUNGS: No masses or consolidation. Pneumothorax: None Osseous abnormalities: None IMPRESSION: No acute cardiopulmonary process.
[2019-06-29 13:39] LABS: #Basophils 0.1 thou/uL (0.0-0.2); #Eosinphils 0.1 thou/uL (0.0-0.7); #Monocytes 0.4 thou/uL (0.11-0.59); #Neutrophils 2.4 thou/uL (1.40-6.50); %Basophils 2.5 % (0.0-1.0); %Eosinophils 1.7 % (0.0-10.0); %Lymphocytes 39.8 % (21.0-51.0); %Monocytes 7.9 % (0.0-10.0); %Neutrophils 48.2 % (42.0-75.0); Hemoglobin 15.6 g/dL (14.0-18.0); Mean Corpuscular HGB CONC 35.7 g/dL (32.0-36.0); Mean Corpuscular Hemoglobin 32.8 pg (27.0-31.0); Mean Corpuscular Volume 91.9 fL (78.0-98.0); Mean Platelet Volume 7.3 fL (7.4-10.4); Platelet Count 216 thou/uL (130-400); RBC Distribution Width 12.7 % (11.5-14.5); Red Blood Cell (RBC) Count 4.77 mill/uL (4.70-6.10); White Blood Cell (WBC) Count 4.9 thou/uL (4.8-10.8)
[2019-06-29 13:47] LABS: ALT (SGPT) 25 U/L (8-55); AST (SGOT) 19 U/L (5-34); Albumin 4.1 g/dL (3.5-5.0); Alkaline Phosphatase 73 U/L (40-150); Anion Gap 12 mmol/L (10-20); BUN (Urea Nitrogen) 11 mg/dL (8.9-20.6); Bilirubin, Total 0.7 mg/dL (0.2-1.2); Calc. Creatinine Clearance 0 mL/min (70-130); Calcium 9.1 mg/dL (7.8-10.44); Carbon Dioxide 26 mmol/L (22-29); Chloride 101 mmol/L (98-107); Estimated GFR-MDRD Greater than 90; Globulin 2.5 g/dL (2.4-3.5); Glucose 208 mg/dL (70-105); Lipase 18 U/L (8-78); Potassium 3.7 mmol/L (3.5-5.1); Protein, Total 6.6 g/dL (6.0-8.3); Sodium 135 mmol/L (136-145)
--- NOTE | 2019-06-29 15:59 | PDOC.FPRHP ---
- History of Present Illness Chief Complaint: Chest Pain History of Present Illness: 39 y/o M with PMHx of CAD, S/P X2 vessel CABG, HTN, DM, presents to the ED with daily CP for weeks. He was admitted for ACS rule out about a week ago. The pt left AMA. Pain not worsened by exertion, occurs at rest. Alleviated by nitro. The next day he called Dr. Linton, supervisor asphalt paving, who recommended increasing pt' s Imdur to 60, and if this change did not decrease the pain to come back to the hospital for a cath. The pt describes daily CP, with radiation to LUE, down to finger tips. C/O numbness in L-fingers. C/O increased diaphoresis and nausea on a daily basis. C/O daily chronic headaches. - Allergies/Adverse Reactions Allergies Allergy/AdvReac Type Severity Reaction Status Date / Time adhesive tape Allergy Verified 06/14/19 01:40 metoclopramide [From Reglan] AdvReac Severe HALLUCINATI Verified 06/14/19 01:40 ONS - Home Medications Medication Instructions Recorded Confirmed Type HumaLOG [HumaLOG Vial] 0 unit SC TID-WM PRN 02/04/18 06/29/19 History Atorvastatin Calcium [Lipitor] 40 mg PO HS #60 tab 03/25/19 06/29/19 Rx Carvedilol [Coreg] 6.25 mg PO BID #60 tab 03/25/19 06/29/19 Rx Nitroglycerin [Nitrostat] 0.4 mg PO Q5MIN PRN #15 tab 03/25/19 06/29/19 Rx Aspirin [Ecotrin] 81 mg PO DAILY 06/14/19 06/29/19 History Insulin Detemir 100 UNITS/ML 62 units SC BID 06/14/19 06/29/19 History [Levemir] Fenofibrate [Tricor] 48 mg PO QPM 06/29/19 06/29/19 History Isosorbide Mononitrate [Imdur ER] 60 mg PO DAILY 06/29/19 06/29/19 History - History PMHx: CAD, DM insulin dependent, HTN, AL, OA, Migraines, PE on R-side PSHx: X2 vessel CABG FHx: Mother: Mi in 40's, Breast Ca, HTN, HLD Social: Dips tobacco. Denies drug or etoh use. Used to smoke marijuana. Past 30 pack year smoking history - Review of Systems General: denies: fever/chills, night sweats Eyes: denies: eye pain, vision changes ENT: denies: nasal congestion, rhinorrhea Respiratory: denies: cough, congestion Cardiovascular: reports: chest pain. denies: palpitation, edema, paroxysmal nocturnal dyspnea, orthopnea Gastrointestinal: reports: nausea, diarrhea, abdominal pain. denies: vomiting, constipation, GI bleeding Genitourinary: denies: incontinence, dysuria Skin: denies: rashes Musculoskeletal: reports: pain, swelling Neurological: reports: numbness. denies: syncope, seizure - Vital signs BP: 126/82 HR: 76 RR: 20 Tmax: 98.3 Pox: 94% on RA Wt: 86.183 kg - Physical Exam Constitutional: NAD, awake, alert and oriented, well developed HEENT: normocephalic and atraumatic, PERRLA, EOMI, conjunctiva clear, no scleral icterus, grossly normal vision, grossly normal hearing, MMM Neck: supple, FROM, trachea midline, no LAD, no JVD Chest: no-tender to palpation, no lesions Heart: RRR, normal S1/S2, no murmurs/rubs/gallops, pulses present, no edema Lungs: CTAB, no respiratory distress, good air movement, no rales/rhonchi, no wheezing, no retractions Abdomen: soft, non-tender, bowel sounds present, no masses/distention Musculoskeletal: normal structure, normal tone, ROM grossly normal Neurological: no focal deficit, CN II-XII intact, normal sensation Skin: no rash/lesions, good turgor, capillary refill <2 seconds, no jaundice Heme/Lymphatic: no unusual bruising or bleeding, no purpura, no petechia Psychiatric: normal mood and affect, intact recent and remote memory FMR H&P: Results - Labs Result Diagrams: 06/29/19 13:18 06/29/19 13:18 Lab results: WBC 4.9 thou/uL (4.8-10.8) 06/29/19 13:18 Hgb 15.6 g/dL (14.0-18.0) 06/29/19 13:18 Hct 43.8 % (42.0-52.0) 06/29/19 13:18 MCV 91.9 fL (78.0-98.0) 06/29/19 13:18 Plt Count 216 thou/uL (130-400) 06/29/19 13:18 Neutrophils % 48.2 % (42.0-75.0) 06/29/19 13:18 Sodium 135 mmol/L (136-145) L 06/29/19 13:18 Potassium 3.7 mmol/L (3.5-5.1) 06/29/19 13:18 Chloride 101 mmol/L (98-107) 06/29/19 13:18 Carbon Dioxide 26 mmol/L (22-29) 06/29/19 13:18 BUN 11 mg/dL (8.9-20.6) 06/29/19 13:18 Creatinine 0.85 mg/dL (0.7-1.3) 06/29/19 13:18 Glucose 208 mg/dL (70-105) H 06/29/19 13:18 Calcium 9.1 mg/dL (7.8-10.44) 06/29/19 13:18 Total Bilirubin 0.7 mg/dL (0.2-1.2) 06/29/19 13:18 AST 19 U/L (5-34) 06/29/19 13:18 ALT 25 U/L (8-55) 06/29/19 13:18 Alkaline Phosphatase 73 U/L (40-150) 06/29/19 13:18 Serum Total Protein 6.6 g/dL (6.0-8.3) 06/29/19 13:18 Albumin 4.1 g/dL (3.5-5.0) 06/29/19 13:18 Lipase 18 U/L (8-78) 06/29/19 13:18 Laboratory Tests 06/29/19 13:18 Troponin I Less than 0.010 - Radiology Interpretation Chest x-ray Status: report reviewed by me (no acute process) FMR H&P: A/P - Problem List (1) Unstable angina Current Visit: Yes Status: Acute (2) GERD (gastroesophageal reflux disease) Current Visit: No Status: Chronic Code(s): K21.9 - GASTRO-ESOPHAGEAL REFLUX DISEASE WITHOUT ESOPHAGITIS (3) HLD (hyperlipidemia) Current Visit: Yes Status: Chronic Code(s): E78.5 - HYPERLIPIDEMIA, UNSPECIFIED Qualifiers: Hyperlipidemia type: mixed hyperlipidemia Qualified Code(s): E78.2 - Mixed hyperlipidemia (4) HTN (hypertension) Current Visit: Yes Status: Chronic Code(s): I10 - ESSENTIAL (PRIMARY) HYPERTENSION Qualifiers: Hypertension type: essential hypertension Qualified Code(s): I10 - Essential (primary) hypertension (5) Hx of CABG Current Visit: Yes Status: Chronic (6) Migraine headache Current Visit: Yes Status: Chronic Code(s): G43.909 - MIGRAINE, UNSP, NOT INTRACTABLE, WITHOUT STATUS MIGRAINOSUS Qualifiers: - Plan 39 y/o M being admitted to Tele Obs for unstable Angina. 1. Unstable Angina - CP occurring at rest. - Negative trops, continue to trend - Placed Cardiology consult. Will likely Cath. NPO after midnight - EKG changes from baseline: NSR, with V4-V5 T wave inversions - CXR stable CABG findings. - Recent increase in Imdur to 60 daily, not decreasing symptoms. - Therapeutic Lovenox 1 mg/kg BID 2. CAD - CABG X2 vessels - Possible cath tomorrow 3. HTN - Continue home medications - Hold beta sravanthi 4. DM II, insulin Dependent - SSI 5. HLD - Continue home medications 6. Hx of AL -Strong FHx of AL in mother in 40's. - Negative trops this hospitalization Full code Diet: Consistent carb, heart healthy. NPO after midnight tonight. Dispo: stable Admit to tele obs for ACS rule out. expected less than 2 nights hx stay. FMR H&P: Upper Level - Pertinent history 65 yo F here with complaint of pressure in his chest that comes and goes for the past 2 weeks. He has a hx of 2v CABG. When pain started he called his supervisor asphalt paving, Dr Linton. In the ER, trops were negative however there was a new inversion of the T wave in V4-[address] depression on the EMS EKG in leads 1-2 that resolved in the ER EKG. Pain has since improved, however is still present. Pain is described as tightness that radiates to his left arm with cold sweats. PMHx CAD, HFpEF, DM2, HTN, HLD, Bipolar Disorder Surgical Hx 2v CABG - Pertinent findings See pharmacy grad intern note for full ROS, PE, vitals, and labs ROS General denies fever or chills CV Complains of chest tightness that radiates to his L shoulder Resp complains of SOB. Denies cough GI denies n/v/d/c or abdominal pain denies increased frequency or dysuria Neuro denies numbness or weakness PE General A&O x4, NAD HEENT NCAT CV RRR, no murmur Resp CTA, no respiratory distress Abd non tender, no distension, normal BS Extremities no edema, equal pedal pulses Neuro no focal deficits, CN II-XII intact - Plan Date/Time: 06/29/19 [id number] I, Basilio Goel DO, have evaluated this patient and agree with findings/plan as outlined by pharmacy grad intern resident. Pertinent changes/additions are listed here. 1.Unstable Angina -Admit to tele obs -Start therapeutic lovenox and consult Cardiology -NPO at midnight anticipating cath -Recent echo shows EF of 50-55% 2.DM2 -Home meds -Low carb diet -ACHS accucheck 3.HTN -Home meds See pharmacy grad intern note for plan for other chronic problems PPx Therapeutic Lovenox Diet HH, NPO at midnight Code Full Addendum - Attending - Attending Attestation Date/Time: 06/30/19 5117 I personally evaluated the patient in the ER at time of admission and discussed the management with Dr. Lund I agree with the History, Examination, Assessment and Plan documented above with any addition or exceptions noted below. 39 yo Diabetic male with established CAD s/p 2V CABG presents with unstable angina EKG with new t wave inversion to lateral leads admit nitrate, morphine and lovenox initiated. Patient Shank Carrier Dr Linton et al notified for further consideration.
[2019-06-29] MEDS ORDERED: Ondansetron PF 4 MG/2 ML Vial IVP PRN (17:33)
[2019-06-29] MEDS ORDERED: Ondansetron ODT 4 MG TAB SL PRN (17:33)
[2019-06-29 17:34] VITALS: BMI 28.8
[2019-06-29] MEDS ORDERED: Nitroglycerin 0.4 MG TAB (25 Tab Bottle) PO PRN (18:09)
[2019-06-29] MEDS ORDERED: Dextrose 50% Abboject 50 ML SYRINGE SLOW IVP PRN (18:12)
[2019-06-29] MEDS ORDERED: HumaLOG 300 UNITS/3 ML VIAL SC PRN ×3 (18:12→19:36)
[2019-06-29] MEDS ORDERED: Dextrose 5% in Water 1,000 ML IV PRN (18:12)
[2019-06-29] MEDS ORDERED: Aspirin 325 MG TAB PO SCH (18:30)
[2019-06-29] MEDS ORDERED: Enoxaparin Sodium 100 MG/ML SYRINGE SC SCH (18:30)
[2019-06-29 18:56] LABS: Troponin I Less than 0.010 ng/mL (< 0.028)
[2019-06-29] MEDS ORDERED: INSULIN DETEMIR SC SCH (21:00)
[2019-06-29] MEDS ORDERED: Insulin Glargine 62 UNITS in Pre-Filled Syringe 1 EACH SC SCH (21:00)
[2019-06-29] MEDS ORDERED: Atorvastatin Calcium 40 MG TAB PO SCH (21:00)
[2019-06-29] MEDS ORDERED: Fenofibrate 48 MG TAB PO SCH (21:00)
[2019-06-29 21:55] LABS: Troponin I Less than 0.010 ng/mL (< 0.028)
[2019-06-30 04:39] LABS: Platelet Count 215 thou/uL (130-400)
[2019-06-30 04:52] LABS: Calc. Creatinine Clearance 158 mL/min (70-130); Estimated GFR-MDRD Greater than 90
--- NOTE | 2019-06-30 06:03 | PDOC.FM ---
- Subjective Subjective: Mr. Acosta appeared well this morning and reported no overnight events at the time of the evaluation. He denied any worsening chest pain, shortness of breath , abdominal pain or difficulty with voiding or stooling. He expressed frustration with several members of the healthcare team and threatened to leave AMA, but was reassured that the healthcare team had only his best interests in mind and that proceeding with his previously scheduled heart catheterization procedure was the best strategy for treating his current condition. - Objective Vital Signs & Weight: Vital Signs (12 hours) Temp Pulse Resp BP BP Pulse Ox 06/30/19 03:55 81 18 119/67 98 06/29/19 23:36 98.4 F 85 16 132/88 98 06/29/19 19:20 98.9 F 78 16 102/62 96 Weight Weight 86.183 kg I&O: 06/28/19 06/29/19 06/30/19 06:59 06:59 06:59 Intake Total 240 Output Total 0 Balance 240 Result Diagrams: 06/30/19 04:21 06/30/19 04:21 Phys Exam - Physical Examination Constitutional: NAD HEENT: PERRLA, moist MMs, sclera anicteric, oral pharynx no lesions Neck: no nodes, supple, full ROM Respiratory: no wheezing, no rales, no rhonchi, clear to auscultation bilateral Cardiovascular: RRR, no significant murmur, no rub Sternotomy scar visible at midline Gastrointestinal: soft, non-tender, no distention Musculoskeletal: no edema, pulses present Neurological: non-focal, moves all 4 limbs Lymphatic: no nodes Psychiatric: normal affect, A&O x 3 Skin: no rash Dx/Plan (1) Unstable angina Status: Acute (2) HLD (hyperlipidemia) Code(s): E78.5 - HYPERLIPIDEMIA, UNSPECIFIED Status: Chronic Qualifiers: Hyperlipidemia type: mixed hyperlipidemia Qualified Code(s): E78.2 - Mixed hyperlipidemia (3) HTN (hypertension) Code(s): I10 - ESSENTIAL (PRIMARY) HYPERTENSION Status: Chronic Qualifiers: Hypertension type: essential hypertension Qualified Code(s): I10 - Essential (primary) hypertension (4) Hx of CABG Status: Chronic (5) Angina at rest Code(s): I20.8 - OTHER FORMS OF ANGINA PECTORIS Status: Acute - Plan Plan: 1. Unstable Angina -Chest Pain occurring at rest, continual for several weeks -Troponins: < 0.01 x3 -EKG: SNR with V4-V5 T-Wave inversions -CXR: Stable CABG findings -Recent increase in Imdur to 60 daily, not decreasing symptoms -Therapeutic Lovenox 1 mg/kg BID -Cardiology consulted ([facility]) -Cardiac catheterization planned for 06/30/19 2. CAD -CABG X2 vessels -Multiple comorbidities present -Continue home medication regiment and await Cardiology recommendations 3. HTN -Continue home medication regimen 4. DM II, Insulin Dependent -Sliding Scale Insulin 5. HLD -Continue home medication regimen 6. Hx of KS -Strong FHx of KS in mother in her 40's, multiple other comorbidities present -Trops: < 0.01 x3 during this hospitalization Code: Full Diet: Consistent Carb or Heart healthy Activity: As Tolerated Dispo: Currently stable on Telemetry, awaiting results of cardiac cath procedure. Continue to coordinate closely with Cardiology and plan for DC in < 48H.
[2019-06-30] MEDS ORDERED: Communication Order-Pharmacy FS SCH (07:30)
--- NOTE | 2019-06-30 07:59 | CON ---
DATE OF CONSULTATION: REASON FOR CONSULTATION: Recurrent chest pain. PRIMARY HAND COMPOSITOR: Dr. Jeffry Linton is the primary system operation superintendent. HISTORY OF PRESENT ILLNESS: Mr. Acosta is a pleasant 39-year-old gentleman with previous history of CAD status post bypass surgery, who has been admitted on several occasions for recurrent chest pain. During his last admission, it was recommended he proceed with coronary angiography to assess his coronary anatomy. He did leave AMA. Mr. Acosta returns with recurrent chest pain. His pain appears to be atypical. He states it has been noted over the last 2 weeks. It has been fairly constant, although it has been more severe at times versus others. The pain is a dull pain. There is some pain worsening with deep inspiration. ALLERGIES: ADHESIVE TAPE AND REGLAN. HOME MEDICATIONS: Include; 1. Humalog. 2. Atorvastatin. 3. Carvedilol. 4. Nitroglycerin. 5. Aspirin. 6. Insulin. 7. Fenofibrate. 8. Isosorbide. PAST MEDICAL HISTORY: CAD status post bypass surgery, diabetes mellitus, hypertension, osteoarthritis, and migraine headaches. SOCIAL HISTORY: No current tobacco or alcohol use. REVIEW OF SYSTEMS: A 10-point review of systems is reviewed as above, otherwise negative. PHYSICAL EXAMINATION: VITAL SIGNS: Blood pressure 119/67, pulse 81, and respirations 20. GENERAL: Patient is a pleasant male, who is in no acute distress. The patient appears their stated age. NEUROLOGIC: The patient is alert and oriented x3 with no focal neurologic deficits. HEENT: Sclerae without icterus. Mouth has moist mucous membranes with normal pallor. NECK: No JVD. Carotid upstroke brisk. No bruits bilaterally. LUNGS: Clear to auscultation with unlabored respirations. BACK: No scoliosis or kyphosis. CARDIAC: Regular rate and rhythm with normal S1 and S2. No S3 or S4 noted. No significant rubs, murmurs, thrills, or gallops noted throughout the precordium. PMI is not displaced. There is no parasternal heave. ABDOMEN: Soft, nontender, nondistended. No peritoneal signs present. No hepatosplenomegaly. No abnormal striae. EXTREMITIES: 2+ femoral and 2+ dorsalis pedis pulses. No cyanosis, clubbing, or edema. SKIN: No gross abnormalities. PERTINENT LABS: CK and troponin negative. EKG shows normal sinus rhythm with right bundle branch block, ST-wave changes suggesting ischemia noted laterally versus LVH. IMPRESSION: 1. Recurrent chest pain. 2. Coronary artery disease. 3. Status post bypass surgery. RECOMMENDATIONS: Mr. Acosta continues to have pain, although pain does not appear to be typical for angina. His symptoms have been fairly constant, although have been worse at times versus others. Given recurrent hospitalizations and previous recommendation for coronary angiography, I discussed proceeding with coronary angiography with Mr. Acosta. Risks included, not limited to the following: I discussed the procedure in full detail with the patient. The risks of the procedure were also discussed. The risks of the procedure include but are not limited to the following: , stroke, VA, need for emergency surgery, loss of limb, bleeding, and infection, as well as a reaction to the dye causing kidney failure and needing long-term dialysis. I also discussed the risks of PCI to include all of the above including coronary dissection and perforation in addition to acute stent thrombosis and restenosis. All questions about the procedure were answered. Given the above, the patient agreed to proceed with coronary angiography and possible PCI. All questions answered. Given the above, the patient agreed to proceed above procedure. Further recommendations per Dr. Jeffry Linton. Job ID: [id number]
[2019-06-30] MEDS ORDERED: Aspirin 325 mg Enteric Coated Tablet PO SCH (09:00)
[2019-06-30] MEDS ORDERED: Enoxaparin Sodium 100 MG/ML SYRINGE SC SCH (09:00)
[2019-06-30] MEDS ORDERED: Aspirin 81 mg Enteric Coated Tablet PO SCH (09:00)
[2019-06-30] MEDS ORDERED: Insulin Glargine 62 UNITS in Pre-Filled Syringe 1 EACH SC SCH (09:00)
[2019-06-30] MEDS ORDERED: Iopamidol 370 76% 100 ML VIAL ONE (09:43)
[2019-06-30] MEDS ORDERED: Lidocaine 1% (PF) 30 ML VIAL ONE (10:13)
[2019-06-30] MEDS ORDERED: Midazolam HCl 2 mg/2 ml Vial ONE (10:59)
[2019-06-30] MEDS ORDERED: Fentanyl 100 MCG/2 ML VIAL ONE (10:59)
[2019-06-30] MEDS ORDERED: Acetaminophen/Codeine 30-300mg Tablet PO PRN ×2 (11:26)
[2019-06-30] MEDS ORDERED: Sodium Chloride 0.9% 200 ML IV PRN (11:26)
[2019-06-30] MEDS ORDERED: Sodium Chloride 0.9% 500 ML IV SCH (11:30)
--- NOTE | 2019-06-30 14:30 | ULT ---
Exam: Right upper quadrant ultrasound: HISTORY: Right upper quadrant abdominal pain. History of prior cholecystectomy. COMPARISON: 05/18/2015 FINDINGS: Liver: At the upper limits of normal in size measuring 17.5 cm. The liver demonstrates diffuse increa sed echogenicity suggesting diffuse fatty infiltration. Gallbladder: There has been interval postcholecystectomy changes. Common bile duct: The common duct is normal in caliber measuring 0.2 cm in diameter. Pancreas: Mostly obscured due to bowel gas and not well evaluated on this exam. Right kidney: Right kidney demonstrates a normal sonographic appearance. The right kidney measures 1 2.3 cm in length. IVC: The visualized IVC demonstrates a normal sonographic appearance. IMPRESSION: 1. Liver at the upper limits of normal in size with evidence of diffuse fatty infiltration. 2. Cholecystectomy. Common duct is normal in caliber.
[2019-06-30 15:59] VITALS: BP 140/80; TEMP 97.7
[2019-06-30] MEDS ORDERED: HumaLOG 300 UNITS/3 ML VIAL SC PRN (17:21)
--- NOTE | 2019-07-01 13:22 | DIS ---
DATE OF ADMISSION: 06/29/2019 DATE OF DISCHARGE: 06/30/2019 RESIDENT: Isaiah Rodríguez MD. CONSULTS: Dr. Linton, Cardiology; Dr. Saha, Cardiology. PROCEDURES: 1. Chest x-ray, 2. Cardiac cath. 3. Abdominal ultrasound. PRIMARY DIAGNOSIS: Chest pain secondary to advanced atherosclerotic disease and multiple cardiovascular comorbidities. SECONDARY DIAGNOSES: Diabetes type 2, previous coronary artery bypass graft, hyperlipidemia, hypertension, bipolar affective disorder, hypertriglyceridemia, coronary artery disease, gastroesophageal reflux disease, migraines, history of atypical chest pain, and unstable angina. DISCHARGE MEDICATIONS: Ranolazine 500 mg b.i.d. x30 days. Discontinued medications; 1. Tylenol No.3. 2. Aspirin 81 mg. 3. Atorvastatin 40 mg. 4. Fenofibrate 48 mg. 5. Insulin lispro 6 units. 6. Isosorbide mononitrate 60 mg. 7. Normal saline 500 mL. HISTORY OF PRESENT ILLNESS AND HOSPITAL COURSE: Mr. Acosta is an unfortunate 39-year-old male with a past medical history significant for coronary artery disease status post 2-vessel coronary artery bypass graft, hypertension, diabetes type 2 , dyslipidemia, and bipolar affective disorder, who presented to the ED with chest pain which he states has been present for several weeks despite multiple doses of aspirin and nitroprusside. He has an extensive cardiac history and likely has a genetic component to his cardiac dysfunction based on the advanced state of his cardiac dysfunction at a relatively young age. The patient left the hospital against medical advice at the last ER appointment that he went to, which was approximately one and half weeks ago because "they were doing everything they could for me" and felt that no additional intervention could be performed. At this time, he admits to continued chest pain and nausea at rest. While in the hospital, he was seen by his primary barnworker groom, Dr. Linton (Cardiology) who scheduled him for a cardiac cath procedure. A cardiac cath was performed and no intervention was attempted. Dr. Linton adjusted Mr. Acosta's home medication regimen to include Ranolazine 500 mg b.i.d. and follow up in an outpatient setting. Chest x-ray revealed no acute cardiopulmonary processes and an abdominal ultrasound secondary to nausea and abdominal pain while on the hospital service demonstrated a liver at the upper limits of normal size with evidence of diffuse fatty infiltration, previous cholecystectomy and a common bile duct that was within normal limits. On discharge, white blood cell count was 4.9, hemoglobin 16, hematocrit 44.6, platelet count 215. Sodium 135, potassium 3.7, chloride 101, carbon dioxide 26, BUN 11, creatinine 0.85, glucose was 208 on admission and dropped down to the low 300s after a high of 417 on the day of discharge. This is most likely due to an n.p.o. order and the necessity to hold all medications prior to his cardiac cath procedure. It is anticipated that once Mr. Acosta resumes his home medication regimen and a carbohydrate-conscious diet that his blood glucose will return to normal and acceptable limits. DISPOSITION: Stable. DISCHARGE INSTRUCTIONS: 1. Locations; home. 2. Diet; heart-healthy and carbohydrate-conscious. 3. Activity; as tolerated. 4. Follow up; the patient was instructed to follow up with his primary barnworker groom, Dr. Linton, within 1 to 2 weeks. Job ID: [id number] MTDD
== END 2019-06-30 19:12 | disposition home or self-care (01) ==
LOC: ERS 12:41 → 2SW 14:45
PROVIDERS: ADMIT Family Medicine; ATTEND Family Medicine
PROC: 4A023N7 Measurement of Cardiac Sampling and Pressure, Left Heart, Percutaneous Approach (ICD-10-PCS; principal; 2019-06-30)
PROC: B2051ZZ Plain Radiography of Left Heart using Low Osmolar Contrast (ICD-10-PCS; 2019-06-30)
DX: I25.119 Atherosclerotic heart disease of native coronary artery with unspecified angina pectoris (principal); I10 Essential (primary) hypertension; E11.9 Type 2 diabetes mellitus without complications; E78.5 Hyperlipidemia, unspecified; I25.2 Old myocardial infarction; F31.9 Bipolar disorder, unspecified; E78.1 Pure hyperglyceridemia; K21.9 Gastro-esophageal reflux disease without esophagitis; Z88.8 Allergy status to other drugs, medicaments and biological substances; Z79.4 Long term (current) use of insulin; Z79.82 Long term (current) use of aspirin; Z79.899 Other long term (current) drug therapy; Z91.048 Other nonmedicinal substance allergy status; Z95.1 Presence of aortocoronary bypass graft
CPT/HCPCS: 36415; 36416; 71045; 76705; 76942; 80053; 82565; 83690; 84484; 85014; 85018; 85025; 85049; 93005; 93458; 94760; 99152; C1769; G0378; J1644; J1650; J1815; J2001; J2250; J3010; Q9967

== ENCOUNTER 2019-07-11 08:16 | Emergency (ER) | payer OTHER ==
--- NOTE | 2019-07-11 09:04 | RAD ---
EXAM: Two views chest PROVIDED CLINICAL HISTORY: Right rib injury. Injury after being hit by a cow. COMPARISON: 06/13/2019 FINDINGS: Median sternotomy wires are again seen. There is suggestion of vascular calcifications involving the coronary arteries noted on the lateral view. The cardiac silhouette and pulmonary vasculature are within normal limits. The lungs are clear. No pneumothorax or pleural effusion is seen. No obvious fr acture is identified. Curvilinear metallic densities overlie the chest bilaterally which appear to overlie the chest and may represent external jewelry. IMPRESSION: No acute cardiopulmonary process.
--- NOTE | 2019-07-11 09:28 | RAD ---
RIGHT WRIST 3 VIEWS:: Date: 07/11/19 INDICATION: History of right wrist injury when hit by a cow in a pen. Right wrist pain. COMPARISON: None. FINDINGS: No acute fracture or subluxation is evident. There are Monckeberg calcifications within the adjacent soft tissues. Mild degenerative changes are seen at the thumb first CMC and MCP joints. IMPRESSION: No acute osseous abnormality. Mild thumb osteoarthrosis. POS: [facility]
[2019-07-11] MEDS ORDERED: Ibuprofen 800 MG TAB ONE (09:35)
[2019-07-11] MEDS ORDERED: Acetaminophen 500 MG TAB ONE (09:35)
== END 2019-07-11 09:40 | disposition home or self-care (01) ==
LOC: SCSER 08:16
DX: S63.501A Unspecified sprain of right wrist, initial encounter (principal); T14.8XXA Other injury of unspecified body region, initial encounter; I25.10 Atherosclerotic heart disease of native coronary artery without angina pectoris; I25.2 Old myocardial infarction; E11.9 Type 2 diabetes mellitus without complications; Z79.4 Long term (current) use of insulin; E78.5 Hyperlipidemia, unspecified; E78.00 Pure hypercholesterolemia, unspecified; Z86.711 Personal history of pulmonary embolism; F41.9 Anxiety disorder, unspecified; F32.9 Major depressive disorder, single episode, unspecified; F17.220 Nicotine dependence, chewing tobacco, uncomplicated; W55.22XA Struck by cow, initial encounter
CPT/HCPCS: 71046

== ENCOUNTER 2019-07-23 09:02 | Emergency (ER) | payer OTHER ==
--- NOTE | 2019-07-23 10:12 | RAD ---
PA CHEST AND RIGHT RIBS 4 VIEWS: Date: 07/23/19 HISTORY: Rib injury, hit by a cow. FINDINGS: Heart size is within normal limits for postop sternotomy change. The lungs are clear of any infiltrat cassandra process. No pneumothorax is identified. No pleural effusion. There is a nondisplaced anterior 7th rib fracture present. No additional fracture is seen. IMPRESSION: Anterior 7th rib fracture, nondisplaced. POS: [facility]
== END 2019-07-23 10:58 | disposition home or self-care (01) ==
LOC: ERS 09:02
DX: S22.31XA Fracture of one rib, right side, initial encounter for closed fracture (principal); I25.10 Atherosclerotic heart disease of native coronary artery without angina pectoris; I25.2 Old myocardial infarction; E11.9 Type 2 diabetes mellitus without complications; E78.5 Hyperlipidemia, unspecified; E78.00 Pure hypercholesterolemia, unspecified; M06.9 Rheumatoid arthritis, unspecified; G43.909 Migraine, unspecified, not intractable, without status migrainosus; F41.9 Anxiety disorder, unspecified; F32.9 Major depressive disorder, single episode, unspecified; F17.220 Nicotine dependence, chewing tobacco, uncomplicated; Z79.899 Other long term (current) drug therapy; Z79.82 Long term (current) use of aspirin; Z86.711 Personal history of pulmonary embolism; Z79.4 Long term (current) use of insulin; W55.22XA Struck by cow, initial encounter

== ENCOUNTER 2019-08-06 18:19 | Inpatient (IN) | payer OTHER ==
[2019-08-06] MEDS ORDERED: Ondansetron PF 4 MG/2 ML Vial ONE (19:12)
[2019-08-06] MEDS ORDERED: Morphine 4 MG/ML VIAL ONE (19:23)
--- NOTE | 2019-08-06 20:13 | PDOC.FPRHP ---
- History of Present Illness Chief Complaint: Cellulitis History of Present Illness: 39-year-old male patient that presents from [facility] emergency department for left upper leg cellulitis. Patient stated that a week and a half ago it started to develop a red bump on his left lateral upper thigh. This bump eventually came to a head and burst when he rubbed it with producing purulent. Soon after patient started to develop swelling and redness spreading from the area. Five days ago the patient was evaluated in hand the area lanced, without any drainage from the area. Patient was started on Bactrim which did not improve it was later switch to clindamycin. Patient presented to [facility] ED today because of increased pain swelling in erythema of the area. Ultrasound there was negative for any abscess or fluid collection. Ultrasound was also negative for any vascular occlusion. Patient was then transported here for IV antibiotics and further evaluation. Patient denies any fevers or chills. Denies any history of previous skin infections. Past medical history of insulin-dependent diabetes mellitus - poorly controlled. - Allergies/Adverse Reactions Allergies Allergy/AdvReac Type Severity Reaction Status Date / Time adhesive tape Allergy Verified 06/14/19 01:40 metoclopramide [From Reglan] AdvReac Severe HALLUCINATI Verified 06/14/19 01:40 ONS - Home Medications Medication Instructions Recorded Confirmed Type HumaLOG [HumaLOG Vial] 0 unit SC TID-WM PRN 02/04/18 08/06/19 History Atorvastatin Calcium [Lipitor] 40 mg PO HS #60 tab 03/25/19 08/06/19 Rx Carvedilol [Coreg] 6.25 mg PO BID #60 tab 03/25/19 08/06/19 Rx Nitroglycerin [Nitrostat] 0.4 mg PO Q5MIN PRN #15 tab 03/25/19 08/06/19 Rx Aspirin [Ecotrin Low Strength] 81 mg PO DAILY 06/14/19 08/06/19 History Insulin Detemir 100 UNITS/ML 65 units SC BID 06/14/19 08/06/19 History [Levemir] Fenofibrate [Tricor] 48 mg PO QPM 06/29/19 08/06/19 History Isosorbide Mononitrate [Imdur ER] 60 mg PO DAILY 06/29/19 08/06/19 History Clindamycin HCl 300 mg PO TID 08/06/19 08/06/19 History Gemfibrozil 600 mg PO BID-AC 08/06/19 08/06/19 History - History PMHx: CAD, DM insulin dependent, HTN, HLD, MO, OA, Migraines, PE on R-side, Bipolar PSHx: X2 vessel CABG FHx: Mother: Mi in 40's, Breast Ca, HTN, HLD Social: Dips tobacco. Denies drug or etoh use. Used to smoke marijuana. Past 30 pack year smoking history - Review of Systems General: reports: fever/chills. denies: weight/appetite/sleep changes Eyes: denies: vision changes, other ENT: denies: nasal congestion, rhinorrhea Respiratory: denies: cough, shortness of breath Cardiovascular: denies: chest pain, edema Gastrointestinal: denies: nausea, vomiting Genitourinary: denies: dysuria, polyuria Skin: reports: rashes (Erythema), lesions (central scab) Musculoskeletal: reports: pain (left thigh), tenderness (left thigh) Neurological: denies: numbness, weakness Psychological: denies: depression, other - Vital signs BP: 154/90, Pulse: 100, Resp: 18, Pain: 8, O2 sat: 96 on Room Air, Temp 100.2 - Physical Exam Constitutional: NAD, awake, alert and oriented, well developed HEENT: normocephalic and atraumatic, EOMI, grossly normal vision, grossly normal hearing Neck: FROM Heart: RRR, normal S1/S2 Lungs: CTAB, no respiratory distress Abdomen: soft, non-tender Neurological: no focal deficit, CN II-XII intact Skin: capillary refill <2 seconds -Skin: [id number] area of erythema, swelling and tenderness to lateral aspect of left thigh Heme/Lymphatic: no unusual bruising or bleeding, no purpura, no petechia Psychiatric: normal mood and affect, good judgment and insight FMR H&P: Results - Labs Result Diagrams: 08/07/19 05:04 08/07/19 05:04 FMR H&P: A/P - Problem List (1) Cellulitis Current Visit: Yes Status: Acute Code(s): L03.90 - CELLULITIS, UNSPECIFIED Qualifiers: Site of cellulitis: extremity Site of cellulitis of extremity: lower extremity Laterality: left Qualified Code(s): L03.116 - Cellulitis of left lower limb (2) Bipolar affective disorder Current Visit: No Status: Chronic Code(s): F31.9 - BIPOLAR DISORDER, UNSPECIFIED Qualifiers: Active/Remission status: currently active Current bipolar episode type: mixed Psychotic features: without psychotic features Qualified Code(s): F31.63 - Bipolar disorder, current episode mixed, severe, without psychotic features (3) Diabetes mellitus type 2, uncontrolled Current Visit: No Status: Chronic Code(s): E11.65 - TYPE 2 DIABETES MELLITUS WITH HYPERGLYCEMIA Qualifiers: Glycemic state: with hyperglycemia Qualified Code(s): E11.65 - Type 2 diabetes mellitus with hyperglycemia (4) GERD (gastroesophageal reflux disease) Current Visit: No Status: Chronic Code(s): K21.9 - GASTRO-ESOPHAGEAL REFLUX DISEASE WITHOUT ESOPHAGITIS (5) HLD (hyperlipidemia) Current Visit: No Status: Chronic Code(s): E78.5 - HYPERLIPIDEMIA, UNSPECIFIED Qualifiers: Hyperlipidemia type: mixed hyperlipidemia Qualified Code(s): E78.2 - Mixed hyperlipidemia (6) HTN (hypertension) Current Visit: No Status: Chronic Code(s): I10 - ESSENTIAL (PRIMARY) HYPERTENSION Qualifiers: Hypertension type: essential hypertension Qualified Code(s): I10 - Essential (primary) hypertension (7) Hx of CABG Current Visit: No Status: Chronic - Plan Cellulitis - Previous I&D w/ no output - Failed outpt abx treatment - US without fluid collection or DVT - Erythematous margins were marked - Continue vanc and zosyn - transition to PO pending clinical improvement - Trend CBC and procal CAD HTN HLD Bipolar - Admitted hx of non compliance with medications - Will resume home rx Diet: HH Code: Full Dispo: Admit to medical for continued IV abx and monitoring FMR H&P: Upper Level - Plan Date/Time: 08/06/192011 IKaiser MD, have evaluated this patient and agree with findings/plan as outlined by regulatory internship resident. Pertinent changes/additions are listed here. Star Acosta is a 39 year old M with a PMH of CAD s/p MO and CABG, DM2, HLD, RA, PE in 2018 who was transferred from [facility] ED for right LE cellulitis. He has had pain and redness that has been progressively worsening since 07/29. He was treated with bactrim and bactroban starting 07/30. He return to ED on after wound started draining and I&D was performed and bactrim was continued. On 08/06, patient was seen again and bactrim was switched to clindamycin. Since that time, patient has been adherent with his antibiotic regimen but redness and pain has continued to worsen. He has also developed subjective fevers/chills at home, Tmax of 100.3. In the [facility] ED, he was given 1 L NS, vancomycin, zosyn, morphine and zofran. WBC was 10.1, with neutrophilic predominence. Right LE US was negative and right LE CT showed cellulitis, no drainable abscess or soft tissue gas. Vital signs are stable, BP 145/91, HR 96, Temp 100.2, RR 20. Pt has not met sepsis criteria. Will continue empiric antibiotics with vanc and zosyn as patient failed output antibiotic therapy with bactrim and clinda for cellulitis. Wound cultures were not done after I&D or at subsequent ED visits. Will continue to monitor for worsening erythema or development of fluid collection. Anticipate hospital stay > 48 hours. Admit to inpatient medication. Please see regulatory internship note above for full H&P, which I have reviewed and agree with. Addendum - Attending - Attending Attestation Date/Time: 08/07/19 6938 I personally evaluated the patient and discussed the management with Dr. Kirkland on 08/06/2019 I agree with the History, Examination, Assessment and Plan documented above with any addition or exceptions noted below - 39 yo male with h/o Type 2 DM, CAD , HTN, HLD presented c/o left thigh pain and redness. Patient had noted small bump several days ago with some drainage; area increased in size and was seen in outpatient setting and started on Bactrin. At follow-up, area had worsened; an I&D was performed and abx was changed to clindamycin. Patient reports pain continued to worsen and area of redness increased. Subj fever. PMH/PSH/Meds/SH reviewed and agree with resident's documentation. Afebrile VSS Exam repeated by me and agree with resident's findings. Labs: WBC=10.1, H/H=13.7/37.3, Fbk=401 , Vg=482, K=3.9, Am=502, CO2=24, BUN/Cr=15/1.0, Axqk=092, Lactic acid=1.0 A/P: 1 ) Left thigh cellulitis- continue vanc and zosyn; USG in ER with no sign of abscess; continue to monitor. 2) DM- continue insulin and adjust as needed. 3) HTN- continue home meds.
[2019-08-06 20:14] LABS: Anion Gap 15 mmol/L (10-20); BUN (Urea Nitrogen) 15 mg/dL (8.9-20.6); Calc. Creatinine Clearance 0 mL/min (70-130); Calcium 8.8 mg/dL (7.8-10.44); Carbon Dioxide 24 mmol/L (22-29); Chloride 102 mmol/L (98-107); Estimated GFR-MDRD 82; Glucose 233 mg/dL (70-105); Magnesium 1.6 mg/dL (1.6-2.6); Phosphorus 2.3 mg/dL (2.3-4.7); Potassium 3.9 mmol/L (3.5-5.1); Sodium 137 mmol/L (136-145)
[2019-08-06] MEDS ORDERED: Acetaminophen 500 MG TAB ONE (20:23)
[2019-08-06] MEDS ORDERED: Dextrose 5% in Water 1,000 ML IV PRN (21:04)
[2019-08-06] MEDS ORDERED: Dextrose 50% Abboject 50 ML SYRINGE SLOW IVP PRN (21:04)
[2019-08-06] MEDS ORDERED: Acetaminophen 325 MG TAB PO PRN (21:04)
[2019-08-06] MEDS: HumaLOG 300 UNITS/3 ML VIAL SC PRN (21:32)
[2019-08-06 23:44] VITALS: BMI 27.8
[2019-08-06] MEDS: HYDROcodone/Acetaminophen 10/325 mg Tablet PO SCH (23:47)
[2019-08-07] MEDS: Piperacillin/Tazobactam 3.375 GM in Sodium Chloride 0.9% 100 ML IVPB SCH ×3 (01:32→12:13)
[2019-08-07] MEDS: Vancomycin HCl 1.25 GM in Sodium Chloride 0.9% 250 ML 250 ML IVPB SCH ×2 (03:02→17:19)
[2019-08-07] MEDS ORDERED: Nitroglycerin 0.4 MG TAB (25 Tab Bottle) SL PRN (04:30)
[2019-08-07] MEDS: HYDROcodone/Acetaminophen 10/325 mg Tablet PO SCH ×3 (05:18→17:29)
[2019-08-07 05:20] LABS: #Basophils 0.1 thou/uL (0.0-0.2); #Eosinphils 0.2 thou/uL (0.0-0.7); #Lymphocytes 1.9 thou/uL (1.20-3.40); #Monocytes 1.1 thou/uL (0.11-0.59); #Neutrophils 7.5 thou/uL (1.40-6.50); %Basophils 0.5 % (0.0-1.0); %Eosinophils 1.5 % (0.0-10.0); %Lymphocytes 17.7 % (21.0-51.0); %Monocytes 10.4 % (0.0-10.0); %Neutrophils 69.9 % (42.0-75.0); Hemoglobin 12.2 g/dL (14.0-18.0); Mean Corpuscular HGB CONC 34.5 g/dL (32.0-36.0); Mean Corpuscular Hemoglobin 32.2 pg (27.0-31.0); Mean Corpuscular Volume 93.5 fL (78.0-98.0); Mean Platelet Volume 7.2 fL (7.4-10.4); Platelet Count 240 thou/uL (130-400); Red Blood Cell (RBC) Count 3.77 mill/uL (4.70-6.10); White Blood Cell (WBC) Count 10.7 thou/uL (4.8-10.8)
[2019-08-07 05:30] LABS: Anion Gap 14 mmol/L (10-20); BUN (Urea Nitrogen) 10 mg/dL (8.9-20.6); Calc. Creatinine Clearance 126 mL/min (70-130); Calcium 8.9 mg/dL (7.8-10.44); Carbon Dioxide 23 mmol/L (22-29); Chloride 103 mmol/L (98-107); Estimated GFR-MDRD Greater than 90; Glucose 257 mg/dL (70-105); Potassium 3.7 mmol/L (3.5-5.1); Sodium 136 mmol/L (136-145)
[2019-08-07] MEDS: HumaLOG 300 UNITS/3 ML VIAL SC PRN (06:04)
[2019-08-07] MEDS: Insulin Glargine 65 UNITS in Pre-Filled Syringe 1 EACH SC SCH (08:22)
[2019-08-07] MEDS: Carvedilol 6.25 MG TAB PO SCH (08:24)
[2019-08-07] MEDS: Aspirin 81 mg Enteric Coated Tablet PO SCH (08:24)
[2019-08-07] MEDS: Enoxaparin Sodium 40 MG/0.4 ML SYRINGE SC SCH (08:24)
[2019-08-07] MEDS: Isosorbide Mononitrate (ER) 30 MG TAB PO SCH (08:24)
[2019-08-07] MEDS: Gemfibrozil 600 MG TAB PO SCH ×2 (08:25→17:20)
--- NOTE | 2019-08-07 08:43 | PDOC.FM ---
- Subjective Subjective: Patient states that he thinks his left leg is less swollen this morning. Does state the pain feels about the same. Only able to bend the knee to 20-30 degrees secondary to pain. Unable to lift left leg. Patient says he took about 10 days worth of Bactrim, went back to the ER and was placed on Clindamycin which he took for 2 days before coming in for this admission. 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 - Objective Vital Signs & Weight: Vital Signs (12 hours) Temp Pulse Resp BP Pulse Ox 08/07/19 07:27 98.4 F 92 20 130/71 97 08/07/19 02:54 99.1 F 82 18 126/79 97 08/06/19 23:44 98.3 F 90 18 130/75 96 08/06/19 20:46 98.9 F 104 H 20 129/63 99 Weight Weight 83.234 kg I&O: 08/06/19 08/07/19 08/08/19 06:59 06:59 06:59 Intake Total 1170 Output Total 1750 Balance -580 Result Diagrams: 08/07/19 05:04 08/07/19 05:04 Phys Exam - Physical Examination Constitutional: NAD HEENT: moist MMs, sclera anicteric Neck: no JVD, supple, full ROM Respiratory: no wheezing, no rales, no rhonchi, clear to auscultation bilateral Cardiovascular: RRR, no significant murmur Gastrointestinal: soft, non-tender, no distention, positive bowel sounds Musculoskeletal: no edema, pulses present passive and active ROM in LLE limited 2/2 pain Neurological: normal sensation, moves all 4 limbs Psychiatric: normal affect, A&O x 3 Skin: normal turgor Deviation from normal: margins marked 08/06, erythematous & warm to touch, margins same today Dx/Plan (1) Cellulitis Code(s): L03.90 - CELLULITIS, UNSPECIFIED Status: Acute Qualifiers: Site of cellulitis: extremity Site of cellulitis of extremity: lower extremity Laterality: left Qualified Code(s): L03.116 - Cellulitis of left lower limb (2) Diabetes mellitus type 2, uncontrolled Code(s): E11.65 - TYPE 2 DIABETES MELLITUS WITH HYPERGLYCEMIA Status: Chronic Qualifiers: Glycemic state: with hyperglycemia Qualified Code(s): E11.65 - Type 2 diabetes mellitus with hyperglycemia (3) HTN (hypertension) Code(s): I10 - ESSENTIAL (PRIMARY) HYPERTENSION Status: Chronic Qualifiers: Hypertension type: essential hypertension Qualified Code(s): I10 - Essential (primary) hypertension (4) Hx of CABG Status: Chronic - Plan Plan: Patient is a 39 yo male who presents with left upper leg pain and decreased movement who is admitted for Cellulitis #Cellulitis - Previous I&D w/ no drainage, no wound culture collected at [facility] - Failed outpt abx treatment of Bactrim x 10 days, Clindamycin x 2 days - US without fluid collection or DVT - Erythematous margins were marked on 08/06 - Continue IV Vancomycin and Zosyn, consider transition to PO pending clinical improvement - WBC 10.7, Procal 0.13, Lactic acid 1.1 - Trend CBC and Procal - Will check [facility] clinic records to see when patient last received Tetanus vaccine #Diabetes Type 2, uncontrolled - monitor glucose checks - adjust insulin as needed based on checks - continue home Levemir, Humalog #CAD -Hx of 2V CABG -continue home meds #HTN -monitor vitals q4h -continue home Carvedilol #HLD -continue home Atorvastatin, Fenofibrate, Gemfibrozil #Bipolar - Admitted hx of non compliance with medications - Will resume home rx Diet: HH VTE: Lovenox Code: Full Dispo: Stable, admit to inpatient on medical unit for continued IV abx and monitoring. Anticipate LOS >48 hrs. Addendum - Attending - Attending Attestation Date/Time: 08/07/19 8937 I personally evaluated the patient and discussed the management with Dr. Bradley I agree with the History, Examination, Assessment and Plan documented above with any addition or exceptions noted below. Patients pain out of proportion to exam c/o erythema extending and increased pain and limited rom knee. CT done yesterday without evidence NF will rec escalate antibiotic and consult with General Surgery.
[2019-08-07] MEDS ORDERED: Non-Formulary Item 1 EACH (Insulin Detemir 100 Units/Ml [Levemir] 65 UNITS) SC SCH (09:00)
[2019-08-07] MEDS ORDERED: Ondansetron PF 4 MG/2 ML Vial ONE ×2 (11:42→20:46)
[2019-08-07] MEDS ORDERED: Lidocaine 1% PF 5 ML VIAL ONE (11:42)
[2019-08-07] MEDS ORDERED: Dexamethasone 20 MG/5 ML VIAL ONE (11:42)
[2019-08-07] MEDS ORDERED: PROPOFOL 200 MG/20 ML VIAL ONE (11:42)
[2019-08-07] MEDS ORDERED: Linezolid 600 MG in Premix Bag 1 BAG IVPB ONE (12:00)
[2019-08-07] MEDS: Morphine 2 MG/ML SYRINGE SLOW IVP PRN (13:07)
--- NOTE | 2019-08-07 13:50 | PDOC.EVN ---
Event Note - Event Note Event Note: Patient seen by Dr. Kay and resident team at approx 1100. Patient exam now changed from exam at 0630. Now patient complaining of pain out of proportion. Also new tingling/burning sensation in left knee. Left upper thigh skin erythema and warmth now spread past original margins from yesterday evening. Unable to move left knee or lift leg secondary to pain. No visible areas of drainage. Patient currently on [place] and having breakthrough 10/10 pain. Will plan to add on Morphine 2 mg q2hr for breakthrough pain. Will also add Linezolid 600 mg IV for additional coverage and for toxin binding. Patient already failed Clindamycin. Plan to consult Dr. Keane, general surgery for suspicion for necrotizing fasciitis. Consider repeat CT of left leg given that original CT from 08/06 could not rule out fasciitis.
--- NOTE | 2019-08-07 15:29 | CON ---
DATE OF CONSULTATION: HISTORY OF PRESENT ILLNESS: Star Acosta is a 39-year-old male patient, admitted to the hospital for left thigh infection laterally. He injured his left leg below the knee a month ago and has a healing wound. He developed a wound over his left lateral thigh, presented to the emergency room 2 days ago, had this drained, sent out with clindamycin. He reported as this was getting worse and was readmitted. He is on insulin. He had a CAT scan that reveals some deep inflammatory changes. I have been asked to see him regarding this non-resolving worsening infection. He is afebrile. His vital signs are normal. His white count is normal. Cultures, blood from 08/06 are negative. No cultures noted from the left thigh abscess that was drained elsewhere. ALLERGIES: ADHESIVE TAPE, REGLAN. SOCIAL HISTORY: Tobacco, none, but he does dip, he dipped this morning at 6:00 a.m. Alcohol, none. MEDICATIONS: At home; 1. Aspirin. 2. Isosorbide. 3. Insulin. 4. Gemfibrozil. 5. Lipitor. 6. Nitroglycerin. 7. Carvedilol. 8. Clindamycin. 9. TriCor. PAST SURGICAL HISTORY: Laparoscopic cholecystectomy. Five years ago, he had a myocardial infarction, had a coronary bypass grafting, 2 vessels. He had a cardiac cath yesterday that revealed patent grafts. Arthroscopy, knee. PAST MEDICAL HISTORY: Diabetes mellitus, hypertension. PHYSICAL EXAMINATION: VITAL SIGNS: Height 5 feet and 8 inches. Weight 183 pounds. BMI 27. Temperature 98.1, pulse 80, blood pressure 115/69. LUNGS: Clear to auscultation. CARDIAC: Regular rate and rhythm without murmur or gallop. ABDOMEN: Soft and nontender. Well-healed sternotomy scar. Nipple piercings bilaterally. EXTREMITIES: Palpable pedal pulses. Left lateral leg below the knee reveals a healing wound without infection. Left lateral thigh reveals an area of induration, cellulitis, and extreme pain. ASSESSMENT AND PLAN: Severe infection, left lateral thigh, refractory to drainage 2 days ago, where as a limited small incision by underlying deeper process. We will plan on incision and drainage in the operating room under anesthesia. We will leave the wound well healing by secondary intention. Further treatment after that will depend on operative findings. Job ID: [id number]
[2019-08-07] MEDS: Sodium Chloride 0.9% 1,000 ML IV SCH (15:41)
[2019-08-07] MEDS ORDERED: Midazolam HCl 2 mg/2 ml Vial ONE (21:17)
[2019-08-07] MEDS ORDERED: Fentanyl 100 MCG/2 ML VIAL ONE (21:17)
[2019-08-07] MEDS ORDERED: Lidocaine 2% Jelly 5 ML TUBE ONE (21:17)
[2019-08-07] MEDS ORDERED: Bupivacaine HCl 0.5%/Epinephrine 1:200,000/PF 30 ml Vial ONE (21:40)
[2019-08-07] MEDS ORDERED: Lidocaine 2% PF 5 ML VIAL ONE (21:40)
[2019-08-07] MEDS ORDERED: Promethazine HCl 25 MG/ML VIAL IM PRN (21:59)
[2019-08-07] MEDS ORDERED: Ondansetron HCl/PF 4 MG/2 ML Vial IVP PRN (21:59)
[2019-08-07] MEDS ORDERED: HYDROmorphone 2 MG/ML VIAL SLOW IVP PRN (21:59)
[2019-08-07] MEDS ORDERED: Promethazine HCl 25 MG/ML VIAL SLOW IVP PRN (21:59)
[2019-08-07] MEDS ORDERED: HYDROmorphone 2 MG/ML VIAL ONE (22:41)
[2019-08-08] MEDS: Fenofibrate 48 MG TAB PO SCH ×2 (00:03→20:41)
[2019-08-08] MEDS: Carvedilol 6.25 MG TAB PO SCH ×3 (00:04→20:41)
[2019-08-08] MEDS: Atorvastatin Calcium 40 MG TAB PO SCH ×2 (00:05→20:41)
[2019-08-08] MEDS: HYDROcodone/Acetaminophen 10/325 mg Tablet PO SCH ×5 (00:05→23:20)
[2019-08-08] MEDS: Piperacillin/Tazobactam 3.375 GM in Sodium Chloride 0.9% 100 ML IVPB SCH ×6 (00:05→23:21)
[2019-08-08] MEDS: Sodium Chloride 0.9% 1,000 ML IV SCH ×2 (00:07→17:38)
--- NOTE | 2019-08-08 02:34 | OP ---
DATE OF PROCEDURE: 08/07/2019 PREOPERATIVE DIAGNOSIS: Deep soft tissue infection, left lateral thigh. POSTOPERATIVE DIAGNOSES: Deep soft tissue infection, left lateral thigh with probably early necrotizing fasciitis. PROCEDURES PERFORMED: Incision and drainage of deep left thigh abscess 9 cm x 4 cm wound with infection superficial to the fascia, but incision made in the fascia to assure no deeper penetration. ANESTHESIA: General, local 0.5% Marcaine with epinephrine, 30 mL mixed with 2% Xylocaine 10 mL, total volume mixture used. Wound VAC placed at the end of the procedure. DESCRIPTION OF PROCEDURE: The patient was taken to the operating room where under general anesthesia, left lateral thigh prepared with ChloraPrep and draped in routine fashion. Local anesthetic was infiltrated in the skin and subcutaneous tissue. Incision was made in the lateral thigh, excising an ulceration of skin about dime size. This extended deep to the fascia where there was purulent material sent for culture. This undermined and necrotic tissue debrided sharply, excising subcutaneous tissue and skin. Wound irrigated. Wound carefully inspected. Cultures obtained, submitted to Microbiology. Wound VAC applied. The patient tolerated the procedure well. Job ID: [id number]
[2019-08-08 03:43] LABS: #Basophils 0.1 thou/uL (0.0-0.2); #Lymphocytes 0.6 thou/uL (1.20-3.40); #Monocytes 0.3 thou/uL (0.11-0.59); #Neutrophils 8.7 thou/uL (1.40-6.50); %Eosinophils 0.5 % (0.0-10.0); %Monocytes 3.4 % (0.0-10.0); %Neutrophils 89.1 % (42.0-75.0); Hemoglobin 12.4 g/dL (14.0-18.0); Mean Corpuscular Volume 94.5 fL (78.0-98.0); Platelet Count 286 thou/uL (130-400); Red Blood Cell (RBC) Count 3.75 mill/uL (4.70-6.10); White Blood Cell (WBC) Count 9.7 thou/uL (4.8-10.8)
[2019-08-08 03:47] LABS: Vancomycin, Trough 6.3 ug/mL
[2019-08-08 03:48] LABS: Anion Gap 17 mmol/L (10-20); BUN (Urea Nitrogen) 12 mg/dL (8.9-20.6); Calc. Creatinine Clearance 108 mL/min (70-130); Calcium 9.1 mg/dL (7.8-10.44); Carbon Dioxide 22 mmol/L (22-29); Chloride 100 mmol/L (98-107); Estimated GFR-MDRD 77; Glucose 384 mg/dL (70-105); Potassium 4.2 mmol/L (3.5-5.1); Sodium 135 mmol/L (136-145)
[2019-08-08] MEDS: Vancomycin HCl 1.25 GM in Sodium Chloride 0.9% 250 ML 250 ML IVPB SCH ×3 (04:19→20:40)
[2019-08-08] MEDS: HumaLOG 300 UNITS/3 ML VIAL SC PRN ×4 (05:58→20:43)
--- NOTE | 2019-08-08 06:20 | PDOC.FM ---
- Subjective Subjective: Patient states his left leg is starting to feel better this morning. He had I&D completed by Dr. Keane last night with wound vac placed. Patient was able to bear weight and walk on his leg for the first time in 3 days. Rates his pain 5 or 6 out of 10. Still having some pain with ROM of left leg but does have more motion this morning compared to yesterday. Otherwise appetite good, denies nausea/vomiting, no fevers/chills. - Objective MAR Reviewed: Yes Vital Signs & Weight: Vital Signs (12 hours) Temp Pulse Resp BP BP BP Pulse Ox 08/08/19 05:48 98.6 F 80 20 136/84 08/08/19 02:45 98.4 F 82 16 142/84 H 95 08/08/19 01:45 93 18 133/78 93 L 08/08/19 00:45 83 18 143/86 H 93 L 08/08/19 00:04 147/81 H 08/07/19 23:45 99.2 F 93 18 147/81 H 94 L Weight Admit Weight 83.234 kg Weight 83.234 kg I&O: 08/06/19 08/07/19 08/08/19 06:59 06:59 06:59 Intake Total 1170 240 Output Total 1750 825 Balance -580 -585 Result Diagrams: 08/08/19 03:20 08/08/19 03:20 Phys Exam - Physical Examination Constitutional: NAD HEENT: moist MMs, sclera anicteric Neck: no JVD, supple, full ROM Respiratory: no wheezing, no rales, no rhonchi, clear to auscultation bilateral Cardiovascular: RRR, no significant murmur Gastrointestinal: soft, non-tender, no distention, positive bowel sounds Musculoskeletal: no edema, pulses present ROM limited in left leg at knee 2/2 pain, flexion to 45 degrees at knee Neurological: normal sensation Psychiatric: normal affect, A&O x 3 Skin: normal turgor Deviation from normal: Warm, erythematous left upper thigh. Wound vac in place, edges clean & dry. Dx/Plan (1) Cellulitis Code(s): L03.90 - CELLULITIS, UNSPECIFIED Status: Acute Qualifiers: Site of cellulitis: extremity Site of cellulitis of extremity: lower extremity Laterality: left Qualified Code(s): L03.116 - Cellulitis of left lower limb (2) Diabetes mellitus type 2, uncontrolled Code(s): E11.65 - TYPE 2 DIABETES MELLITUS WITH HYPERGLYCEMIA Status: Chronic Qualifiers: Glycemic state: with hyperglycemia Qualified Code(s): E11.65 - Type 2 diabetes mellitus with hyperglycemia (3) HTN (hypertension) Code(s): I10 - ESSENTIAL (PRIMARY) HYPERTENSION Status: Chronic Qualifiers: Hypertension type: essential hypertension Qualified Code(s): I10 - Essential (primary) hypertension (4) Hx of CABG Status: Chronic - Plan Plan: Patient is a 39 yo male who presents with left upper leg pain and decreased movement who is admitted for Cellulitis #Cellulitis - Previous I&D w/ no drainage, no wound culture collected at [facility] ED - Failed outpt abx treatment of Bactrim x 10 days, Clindamycin x 2 days - US without fluid collection or DVT - Erythematous margins were marked on 08/06, rapidly increasing erythema outside margins with margins remarked @1300 on 08/07 - Continue IV Vancomycin and Zosyn, consider transition to PO pending clinical improvement - Given 1 dose 600 mg IV Linezolid for toxin binding properties and previously failed Clindamycin - initial WBC 10.7, Procal 0.13, Lactic acid 1.1 - Trend CBC and Procal - Will check [facility] clinic records to see when patient last received Tetanus vaccine - Consult General Surgery, Dr. Keane--performed I&D of left upper thigh on , patient found to have 9 cm x 4 cm abscess with purulent material within fascia with necrotic tissue debrided, cultures taken, wound VAC placed. Appreciate recs. - Wound cultures pending--initial results show few gram positive cocci #Diabetes Type 2, uncontrolled - monitor glucose checks, have remained in high 200s to low 300s - adjust insulin as needed based on checks--consider increasing Levemir from 65 to 70 units BID, change ssi from mild to aggressive - continue home Levemir 65 units BID, Humalog ssi - check [facility] records to see what agents patient has previously taken, he would benefit from an SGLT-2 inhibitor (i.e Jardiance) given DM with CAD risk #CAD -Hx of 2V CABG -continue home meds -ASCVD 10 yr risk 17% #HTN -monitor vitals q4h -continue home Carvedilol #HLD -continue home Atorvastatin, Fenofibrate, Gemfibrozil #Bipolar - Admitted hx of non compliance with medications - Will resume home rx Diet: HH VTE: Lovenox Code: Full Dispo: Stable, admit to inpatient on medical unit for continued IV abx and monitoring. Plan to adjust insulin and DM meds today. Anticipate LOS >48 hrs. Addendum - Attending - Attending Attestation Date/Time: 08/08/19 4733 I personally evaluated the patient and discussed the management with Dr. Bradley I agree with the History, Examination, Assessment and Plan documented above with any addition or exceptions noted below.POD #1 patient much improved will need to improve diabetic control and await culture results further Antibiotic adjustment.
[2019-08-08] MEDS: Insulin Glargine 65 UNITS in Pre-Filled Syringe 1 EACH SC SCH ×3 (09:03→20:43)
[2019-08-08] MEDS: Isosorbide Mononitrate (ER) 30 MG TAB PO SCH (09:03)
[2019-08-08] MEDS: Gemfibrozil 600 MG TAB PO SCH ×2 (09:04→17:57)
[2019-08-08] MEDS: Enoxaparin Sodium 40 MG/0.4 ML SYRINGE SC SCH (09:04)
[2019-08-08] MEDS: Aspirin 81 mg Enteric Coated Tablet PO SCH (09:04)
[2019-08-08] MEDS: Morphine 2 MG/ML SYRINGE SLOW IVP PRN (09:06)
[2019-08-08 11:54] LABS: Hemoglobin A1c 10.8 % (4.0-6.0)
[2019-08-08 12:08] LABS: Cardiac Risk 3.6 (Less than 4.5)
--- NOTE | 2019-08-08 14:38 | PRG ---
DATE OF SERVICE: 08/08/2019 SUBJECTIVE: Star Acosta is doing well today. His leg feels much better. He has been able to walk on it. He has been able to flex and extend his leg. Wound VAC is in place. Wound Care can change this wound VAC either tomorrow or Sunday. I would like to see the wound when they changed it. The patient had gram-positive cocci seen on his Gram stain. OBJECTIVE: VITAL SIGNS: He remains afebrile. Temperature 98.7 degrees, pulse 81, and blood pressure 95/67. LABORATORY DATA: His white count is 9.7 today and hemoglobin 12.4. ASSESSMENT AND PLAN: Overall, he is doing well. I expect him to be able to be discharged home with oral antibiotics next week. We would continue wound VAC care and intravenous antibiotics in the interim. Awaiting sensitivities of the cultures obtained intraoperatively yesterday and arrangement for outpatient wound VAC care. I will see him over the weekend as needed. If the Wound Care changed the wound VAC on Sunday, they can call me. Otherwise, I will look at the wound on Sunday. Job ID: [id number]
[2019-08-09 03:20] LABS: #Eosinphils 0.2 thou/uL (0.0-0.7); #Lymphocytes 2.4 thou/uL (1.20-3.40); #Monocytes 0.8 thou/uL (0.11-0.59); #Neutrophils 6.3 thou/uL (1.40-6.50); %Basophils 0.2 % (0.0-1.0); %Eosinophils 1.9 % (0.0-10.0); %Lymphocytes 24.9 % (21.0-51.0); %Monocytes 8.3 % (0.0-10.0); %Neutrophils 64.7 % (42.0-75.0); Hemoglobin 10.5 g/dL (14.0-18.0); Mean Corpuscular HGB CONC 35.3 g/dL (32.0-36.0); Mean Corpuscular Hemoglobin 33.3 pg (27.0-31.0); Mean Corpuscular Volume 94.5 fL (78.0-98.0); Mean Platelet Volume 6.8 fL (7.4-10.4); Platelet Count 273 thou/uL (130-400); RBC Distribution Width 11.9 % (11.5-14.5); Red Blood Cell (RBC) Count 3.16 mill/uL (4.70-6.10); White Blood Cell (WBC) Count 9.8 thou/uL (4.8-10.8)
[2019-08-09 03:37] LABS: Vancomycin, Trough 15.4 ug/mL
[2019-08-09] MEDS: Vancomycin HCl 1.25 GM in Sodium Chloride 0.9% 250 ML 250 ML IVPB SCH ×3 (03:55→20:42)
[2019-08-09] MEDS: Morphine 2 MG/ML SYRINGE SLOW IVP PRN ×3 (04:01→13:20)
[2019-08-09 04:17] LABS: Anion Gap 13 mmol/L (10-20); BUN (Urea Nitrogen) 11 mg/dL (8.9-20.6); Calc. Creatinine Clearance 143 mL/min (70-130); Calcium 9.1 mg/dL (7.8-10.44); Carbon Dioxide 23 mmol/L (22-29); Chloride 104 mmol/L (98-107); Estimated GFR-MDRD Greater than 90; Glucose 272 mg/dL (70-105); Potassium 3.3 mmol/L (3.5-5.1); Sodium 137 mmol/L (136-145)
[2019-08-09] MEDS: Piperacillin/Tazobactam 3.375 GM in Sodium Chloride 0.9% 100 ML IVPB SCH ×4 (05:38→23:19)
[2019-08-09] MEDS: HYDROcodone/Acetaminophen 10/325 mg Tablet PO SCH ×4 (05:38→23:18)
[2019-08-09] MEDS: HumaLOG 300 UNITS/3 ML VIAL SC PRN ×3 (05:50→16:59)
--- NOTE | 2019-08-09 06:17 | PDOC.FM ---
- Subjective Subjective: Pt is doing well today. he continues with pain on LUE. He denies fevers, N/V, diarrhea, constipation. He has an appetite. - Objective Vital Signs & Weight: Vital Signs (12 hours) Temp Pulse Resp BP BP Pulse Ox 08/09/19 04:00 98.2 F 73 20 137/86 93 L 08/09/19 00:49 98.5 F 83 20 136/70 96 08/08/19 20:41 148/79 H 08/08/19 20:00 99.1 F 81 20 148/79 H 99 Weight Admit Weight 83.234 kg Weight 83.234 kg I&O: 08/07/19 08/08/19 08/09/19 06:59 06:59 06:59 Intake Total 1170 240 720 Output Total 1750 825 575 Balance -580 -585 145 Result Diagrams: 08/09/19 03:11 08/09/19 03:11 Phys Exam - Physical Examination Constitutional: NAD HEENT: PERRLA, moist MMs Respiratory: no wheezing, no rales, clear to auscultation bilateral Cardiovascular: RRR, no significant murmur Gastrointestinal: soft, non-tender, no distention Musculoskeletal: no edema, pulses present LUE wound vac in place Dx/Plan (1) Cellulitis Code(s): L03.90 - CELLULITIS, UNSPECIFIED Status: Acute Qualifiers: Site of cellulitis: extremity Site of cellulitis of extremity: lower extremity Laterality: left Qualified Code(s): L03.116 - Cellulitis of left lower limb (2) Coronary artery disease Code(s): I25.10 - ATHSCL HEART DISEASE OF [place] CORONARY ARTERY W/O ANG PCTRS Status: Chronic Qualifiers: Coronary Disease-Associated Artery/Lesion type: bypass graft [place] vs. transplanted heart: [place] heart Associated angina: with stable angina Qualified Code(s): I25.708 - Atherosclerosis of coronary artery bypass graft(s) , unspecified, with other forms of angina pectoris (3) Diabetes mellitus type 2, uncontrolled Code(s): E11.65 - TYPE 2 DIABETES MELLITUS WITH HYPERGLYCEMIA Status: Chronic Qualifiers: Glycemic state: with hyperglycemia Qualified Code(s): E11.65 - Type 2 diabetes mellitus with hyperglycemia (4) HLD (hyperlipidemia) Code(s): E78.5 - HYPERLIPIDEMIA, UNSPECIFIED Status: Chronic Qualifiers: Hyperlipidemia type: mixed hyperlipidemia Qualified Code(s): E78.2 - Mixed hyperlipidemia (5) HTN (hypertension) Code(s): I10 - ESSENTIAL (PRIMARY) HYPERTENSION Status: Chronic Qualifiers: Hypertension type: essential hypertension Qualified Code(s): I10 - Essential (primary) hypertension (6) Hx of CABG Status: Chronic (7) Uninsured Code(s): Z59.8 - OTHER PROBLEMS RELATED TO HOUSING AND ECONOMIC CIRCUMSTANCES Status: Chronic - Plan Plan: Plan: Patient is a 39 yo male who presents with left upper leg pain and decreased movement who is admitted for Cellulitis #Cellulitis - Previous I&D w/ no drainage, no wound culture collected at [facility] - Failed outpt abx treatment of Bactrim x 10 days, Clindamycin x 2 days - US without fluid collection or DVT - Erythematous margins were marked on 08/06, rapidly increasing erythema outside margins with margins remarked @1300 on 08/07 - Continue IV Vancomycin and Zosyn, consider transition to PO pending clinical improvement - Given 1 dose 600 mg IV Linezolid for toxin binding properties and previously failed Clindamycin - initial WBC 10.7, Procal 0.13, Lactic acid 1.1 - Trend CBC and Procal - Will check [facility] clinic records to see when patient last received Tetanus vaccine - Consult General Surgery, Dr. Keane--performed I&D of left upper thigh on , patient found to have 9 cm x 4 cm abscess with purulent material within fascia with necrotic tissue debrided, cultures taken, wound VAC placed. Appreciate recs. - Wound cultures MRSA sensitive to doxy, vanc, linezolid, tetracycline. Consider switching to PO doxy #Diabetes Type 2, uncontrolled - monitor glucose checks, have remained in high 200s to low 300s - adjust insulin as needed based on checks--consider increasing Levemir from 65 to 70 units BID, change ssi from mild to aggressive - continue home Levemir 65 units BID, Humalog ssi - Consider increasing Levemir to 68-70 U BID - check [facility] records to see what agents patient has previously taken, he would benefit from an SGLT-2 inhibitor (i.e Jardiance) given DM with CAD risk #CAD -Hx of 2V CABG -continue home meds -ASCVD 10 yr risk 17% #HTN -monitor vitals q4h -continue home Carvedilol #HLD -continue home Atorvastatin, Fenofibrate, Gemfibrozil #Bipolar - Admitted hx of non compliance with medications - Will resume home rx Diet: HH VTE: Lovenox Code: Full Dispo: Stable, admit to inpatient on medical unit for continued IV abx and monitoring. Plan to adjust insulin and DM meds today. Anticipate LOS >48 hrs.
[2019-08-09] MEDS: Gemfibrozil 600 MG TAB PO SCH ×2 (08:43→16:59)
[2019-08-09] MEDS: Isosorbide Mononitrate (ER) 30 MG TAB PO SCH (08:43)
[2019-08-09] MEDS: Aspirin 81 mg Enteric Coated Tablet PO SCH (08:43)
[2019-08-09] MEDS: Carvedilol 6.25 MG TAB PO SCH ×2 (08:44→20:41)
[2019-08-09] MEDS: Enoxaparin Sodium 40 MG/0.4 ML SYRINGE SC SCH (08:44)
[2019-08-09] MEDS: Insulin Glargine 65 UNITS in Pre-Filled Syringe 1 EACH SC SCH (09:40)
--- NOTE | 2019-08-09 11:48 | PRG ---
DATE OF SERVICE: 08/09/2019 SUBJECTIVE: Star Acosta is doing well today. Cultures reveal MRSA. The patient's wound VAC will be changed Sunday and I will view his wound there at that time. Please call over the weekend if necessary for any needs. Hopefully, he can be discharged home next week with a wound VAC and oral antibiotics, pending sensitivities. Job ID: [id number]
[2019-08-09] MEDS ORDERED: Potassium Chloride 20 MEQ TAB PO SCH (13:15)
--- NOTE | 2019-08-09 14:27 | PRG ---
DATE OF SERVICE: 08/09/2019 Please see the note from Dr. Healy, for which I agree. The patient was seen, evaluated, and discussed with the residents by bedside. Basically, this gentleman is here for left lower extremity cellulitis, on vancomycin and Zosyn, slowly improving. Diabetes is being monitored and sliding scale in addition to his home insulin, but slowly improving. Certainly, if it does not improve quickly, we may have to consider even vascular studies on that leg, but at this point in time, I think we are on the right direction. Job ID: [id number]
[2019-08-09] MEDS: Atorvastatin Calcium 40 MG TAB PO SCH (20:41)
[2019-08-09] MEDS: Insulin Glargine 75 UNITS in Pre-Filled Syringe 1 EACH SC SCH (20:43)
[2019-08-09] MEDS: Fenofibrate 48 MG TAB PO SCH (21:32)
[2019-08-10 03:29] LABS: #Eosinphils 0.2 thou/uL (0.0-0.7); #Lymphocytes 2.2 thou/uL (1.20-3.40); #Monocytes 0.7 thou/uL (0.11-0.59); #Neutrophils 5.2 thou/uL (1.40-6.50); %Basophils 0.6 % (0.0-1.0); %Eosinophils 2.6 % (0.0-10.0); %Lymphocytes 26.3 % (21.0-51.0); %Monocytes 8.7 % (0.0-10.0); %Neutrophils 61.9 % (42.0-75.0); Hemoglobin 11.1 g/dL (14.0-18.0); Mean Corpuscular HGB CONC 34.4 g/dL (32.0-36.0); Mean Corpuscular Hemoglobin 32.4 pg (27.0-31.0); Mean Corpuscular Volume 94.3 fL (78.0-98.0); Mean Platelet Volume 6.8 fL (7.4-10.4); Platelet Count 313 thou/uL (130-400); RBC Distribution Width 12.1 % (11.5-14.5); Red Blood Cell (RBC) Count 3.44 mill/uL (4.70-6.10); White Blood Cell (WBC) Count 8.5 thou/uL (4.8-10.8)
[2019-08-10 03:46] LABS: Vancomycin, Trough 12.7 ug/mL
[2019-08-10 03:47] LABS: Anion Gap 12 mmol/L (10-20); BUN (Urea Nitrogen) 7 mg/dL (8.9-20.6); Calc. Creatinine Clearance 171 mL/min (70-130); Calcium 9.2 mg/dL (7.8-10.44); Carbon Dioxide 23 mmol/L (22-29); Chloride 106 mmol/L (98-107); Estimated GFR-MDRD Greater than 90; Glucose 169 mg/dL (70-105); Potassium 3.4 mmol/L (3.5-5.1); Sodium 138 mmol/L (136-145)
[2019-08-10] MEDS: Vancomycin HCl 1.5 GM in Sodium Chloride 0.9% 250 ML 300 ML IVPB SCH ×3 (03:58→21:10)
[2019-08-10] MEDS: Morphine 2 MG/ML SYRINGE SLOW IVP PRN ×3 (03:58→14:00)
[2019-08-10] MEDS: HYDROcodone/Acetaminophen 10/325 mg Tablet PO SCH ×4 (05:46→23:26)
[2019-08-10] MEDS: Piperacillin/Tazobactam 3.375 GM in Sodium Chloride 0.9% 100 ML IVPB SCH ×4 (05:47→23:27)
--- NOTE | 2019-08-10 06:33 | PDOC.FM ---
- Subjective Subjective: Pt is doing well today. He remains with an appetite and eating. He tolerated increasing insulin. His leg pain is decreasing. He is ambulating well. - Objective Vital Signs & Weight: Vital Signs (12 hours) Temp Pulse Resp BP BP Pulse Ox 08/09/19 20:41 156/83 H 08/09/19 19:45 98 08/09/19 19:15 98.9 F 74 18 156/83 H 98 Weight Admit Weight 83.234 kg Weight 83.234 kg I&O: 08/08/19 08/09/19 08/10/19 06:59 06:59 06:59 Intake Total 240 1950 2900 Output Total 825 1275 4200 Balance -585 675 -1300 Result Diagrams: 08/10/19 03:20 08/10/19 03:20 Phys Exam - Physical Examination Constitutional: NAD Respiratory: no wheezing, no rales, clear to auscultation bilateral Cardiovascular: RRR, no significant murmur Gastrointestinal: soft, non-tender, no distention, positive bowel sounds Musculoskeletal: no edema, pulses present wound vac properly placed on left thigh Neurological: normal sensation, moves all 4 limbs Dx/Plan (1) Cellulitis Code(s): L03.90 - CELLULITIS, UNSPECIFIED Status: Acute Qualifiers: Site of cellulitis: extremity Site of cellulitis of extremity: lower extremity Laterality: left Qualified Code(s): L03.116 - Cellulitis of left lower limb (2) Coronary artery disease Code(s): I25.10 - ATHSCL HEART DISEASE OF [place] CORONARY ARTERY W/O ANG PCTRS Status: Chronic Qualifiers: Coronary Disease-Associated Artery/Lesion type: bypass graft [place] vs. transplanted heart: [place] heart Associated angina: with stable angina Qualified Code(s): I25.708 - Atherosclerosis of coronary artery bypass graft(s) , unspecified, with other forms of angina pectoris (3) Diabetes mellitus type 2, uncontrolled Code(s): E11.65 - TYPE 2 DIABETES MELLITUS WITH HYPERGLYCEMIA Status: Chronic Qualifiers: Glycemic state: with hyperglycemia Qualified Code(s): E11.65 - Type 2 diabetes mellitus with hyperglycemia (4) HLD (hyperlipidemia) Code(s): E78.5 - HYPERLIPIDEMIA, UNSPECIFIED Status: Chronic Qualifiers: Hyperlipidemia type: mixed hyperlipidemia Qualified Code(s): E78.2 - Mixed hyperlipidemia (5) HTN (hypertension) Code(s): I10 - ESSENTIAL (PRIMARY) HYPERTENSION Status: Chronic Qualifiers: Hypertension type: essential hypertension Qualified Code(s): I10 - Essential (primary) hypertension (6) Hx of CABG Status: Chronic (7) Uninsured Code(s): Z59.8 - OTHER PROBLEMS RELATED TO HOUSING AND ECONOMIC CIRCUMSTANCES Status: Chronic - Plan Plan: Patient is a 39 yo male who presents with left upper leg pain and decreased movement who is admitted for Cellulitis #Cellulitis - Previous I&D w/ no drainage, no wound culture collected at [place] [facility] - Failed outpt abx treatment of Bactrim x 10 days, Clindamycin x 2 days - US without fluid collection or DVT - Erythematous margins were marked on 08/06, rapidly increasing erythema outside margins with margins remarked @1300 on 08/07 - Continue IV Vancomycin and Zosyn, consider transition to PO pending clinical improvement - Given 1 dose 600 mg IV Linezolid for toxin binding properties and previously failed Clindamycin - initial WBC 10.7, Procal 0.13, Lactic acid 1.1 - Trend CBC and Procal - Will check [facility] clinic records to see when patient last received Tetanus vaccine - Consult General Surgery, Dr. Keane--performed I&D of left upper thigh on , patient found to have 9 cm x 4 cm abscess with purulent material within fascia with necrotic tissue debrided, cultures taken, wound VAC placed. Appreciate recs. - Wound cultures MRSA sensitive to doxy, vanc, linezolid, tetracycline. Consider switching to PO doxy on Sunday - PT/OT consulted - CM consulted for Wound Care in outpt setting #Diabetes Type 2, uncontrolled - Increased Glargine to 75 U BID w/ good control this mon. Continue to monitor. Pt is tolerating a diet. - check [facility] records to see what agents patient has previously taken, he would benefit from an SGLT-2 inhibitor (i.e Jardiance) given DM with CAD risk #CAD -Hx of 2V CABG -continue home meds -ASCVD 10 yr risk 17% #HTN -monitor vitals q4h -continue home Carvedilol - pt takes lisinopril at home but does not know dose, restarted at 10 mg daily. #HLD -continue home Atorvastatin, Fenofibrate, Gemfibrozil #Bipolar - Admitted hx of non compliance with medications - Will resume home rx Diet: HH VTE: Lovenox Code: Full Dispo: Stable, admit to inpatient on medical unit for continued IV abx and monitoring. Plan to adjust insulin and DM meds today. Anticipate LOS >48 hrs.
[2019-08-10] MEDS: Isosorbide Mononitrate (ER) 30 MG TAB PO SCH (08:25)
[2019-08-10] MEDS: Aspirin 81 mg Enteric Coated Tablet PO SCH (08:25)
[2019-08-10] MEDS: Gemfibrozil 600 MG TAB PO SCH ×2 (08:25→15:52)
[2019-08-10] MEDS: Carvedilol 6.25 MG TAB PO SCH ×2 (08:25→21:10)
[2019-08-10] MEDS: Enoxaparin Sodium 40 MG/0.4 ML SYRINGE SC SCH (08:26)
[2019-08-10] MEDS: Insulin Glargine 75 UNITS in Pre-Filled Syringe 1 EACH SC SCH ×2 (08:27→21:18)
[2019-08-10] MEDS ORDERED: Ondansetron ODT 4 MG TAB PO PRN (08:46)
[2019-08-10 10:27] LABS: Magnesium 1.4 mg/dL (1.6-2.6); Phosphorus 2.8 mg/dL (2.3-4.7)
[2019-08-10] MEDS ORDERED: Potassium Chloride 20 MEQ TAB PO SCH (10:45)
--- NOTE | 2019-08-10 16:42 | PRG ---
DATE OF SERVICE: 08/10/2019 Please see the note from Dr. Healy, for which I agree. The patient was seen, evaluated, discussed and examined by bedside and sounds like leg is improving, less erythema and less swelling. He still has a wound VAC. Tolerating the vancomycin and Zosyn. Increased his home insulin to Levemir 75 units twice daily. His sugar is coming down. No other major changes otherwise and the leg looks fine. No evidence of clots or edema. Job ID: [id number]
[2019-08-10] MEDS ORDERED: Promethazine 25 MG TAB PO PRN (17:03)
[2019-08-10] MEDS: HumaLOG 300 UNITS/3 ML VIAL SC PRN ×2 (17:16→21:19)
[2019-08-10] MEDS: Atorvastatin Calcium 40 MG TAB PO SCH (21:10)
[2019-08-10] MEDS: Fenofibrate 48 MG TAB PO SCH (21:10)
[2019-08-10] MEDS: Lisinopril 10 MG TAB PO SCH (21:11)
[2019-08-11 04:07] LABS: #Basophils 0.1 thou/uL (0.0-0.2); #Eosinphils 0.2 thou/uL (0.0-0.7); #Lymphocytes 1.9 thou/uL (1.20-3.40); #Monocytes 0.6 thou/uL (0.11-0.59); #Neutrophils 4.3 thou/uL (1.40-6.50); %Basophils 0.8 % (0.0-1.0); %Eosinophils 3.4 % (0.0-10.0); %Lymphocytes 26.7 % (21.0-51.0); %Monocytes 8.8 % (0.0-10.0); %Neutrophils 60.3 % (42.0-75.0); Hemoglobin 11.9 g/dL (14.0-18.0); Mean Corpuscular Hemoglobin 31.1 pg (27.0-31.0); Mean Corpuscular Volume 94.2 fL (78.0-98.0); Mean Platelet Volume 6.8 fL (7.4-10.4); Platelet Count 346 thou/uL (130-400); RBC Distribution Width 12.1 % (11.5-14.5); Red Blood Cell (RBC) Count 3.83 mill/uL (4.70-6.10); White Blood Cell (WBC) Count 7.1 thou/uL (4.8-10.8)
[2019-08-11 04:26] LABS: Vancomycin, Trough 14.8 ug/mL
[2019-08-11 04:27] LABS: Anion Gap 13 mmol/L (10-20); BUN (Urea Nitrogen) 9 mg/dL (8.9-20.6); Calc. Creatinine Clearance 141 mL/min (70-130); Calcium 9.7 mg/dL (7.8-10.44); Carbon Dioxide 25 mmol/L (22-29); Chloride 104 mmol/L (98-107); Estimated GFR-MDRD Greater than 90; Glucose 298 mg/dL (70-105); Potassium 3.7 mmol/L (3.5-5.1); Sodium 138 mmol/L (136-145)
[2019-08-11] MEDS: Vancomycin HCl 1.5 GM in Sodium Chloride 0.9% 250 ML 300 ML IVPB SCH ×3 (04:42→20:47)
[2019-08-11] MEDS: Morphine 2 MG/ML SYRINGE SLOW IVP PRN ×3 (04:55→20:58)
[2019-08-11] MEDS: HYDROcodone/Acetaminophen 10/325 mg Tablet PO SCH ×4 (05:14→23:33)
[2019-08-11] MEDS: HumaLOG 300 UNITS/3 ML VIAL SC PRN ×2 (05:21→12:19)
[2019-08-11] MEDS: Piperacillin/Tazobactam 3.375 GM in Sodium Chloride 0.9% 100 ML IVPB SCH ×4 (05:23→23:34)
--- NOTE | 2019-08-11 05:54 | PDOC.FM ---
- Subjective Subjective: Patient states he continues to feel better. He has been up and able to bear weight and walk around using left leg. Patient voices that he does not think he will be able to make drive to have wound vac changes frequently. He also says he is scared to walk around without using an program services assistant device such as cane or walker. Says pain is improving. - Objective Vital Signs & Weight: Vital Signs (12 hours) Temp Pulse Resp BP BP Pulse Ox 08/10/19 21:11 135/76 08/10/19 21:10 135/76 08/10/19 20:00 98.5 F 74 20 152/87 H 95 Weight Admit Weight 83.234 kg Weight 83.234 kg I&O: 08/09/19 08/10/19 08/11/19 06:59 06:59 06:59 Intake Total 1950 2900 2750 Output Total 1275 4200 860 Balance 675 -1300 1890 Result Diagrams: 08/11/19 03:55 08/11/19 03:55 Phys Exam - Physical Examination Constitutional: NAD HEENT: moist MMs, sclera anicteric Neck: no JVD, supple Respiratory: no wheezing, no rales, no rhonchi, clear to auscultation bilateral Cardiovascular: RRR, no significant murmur Gastrointestinal: soft, non-tender, no distention, positive bowel sounds Musculoskeletal: no edema, pulses present Neurological: normal sensation, moves all 4 limbs Psychiatric: normal affect, A&O x 3 Skin: no rash, normal turgor Deviation from normal: wound vac in place on left upper thigh, dry and intact surrounding area Dx/Plan (1) Cellulitis Code(s): L03.90 - CELLULITIS, UNSPECIFIED Status: Acute Qualifiers: Site of cellulitis: extremity Site of cellulitis of extremity: lower extremity Laterality: left Qualified Code(s): L03.116 - Cellulitis of left lower limb (2) Diabetes mellitus type 2, uncontrolled Code(s): E11.65 - TYPE 2 DIABETES MELLITUS WITH HYPERGLYCEMIA Status: Chronic Qualifiers: Glycemic state: with hyperglycemia Qualified Code(s): E11.65 - Type 2 diabetes mellitus with hyperglycemia (3) HTN (hypertension) Code(s): I10 - ESSENTIAL (PRIMARY) HYPERTENSION Status: Chronic Qualifiers: Hypertension type: essential hypertension Qualified Code(s): I10 - Essential (primary) hypertension (4) Hx of CABG Status: Chronic - Plan Plan: Patient is a 39 yo male who presents with left upper leg pain and decreased movement who is admitted for Cellulitis #Cellulitis - Previous I&D w/ no drainage, no wound culture collected at [place] [facility] - Failed outpt abx treatment of Bactrim x 10 days, Clindamycin x 2 days - US without fluid collection or DVT - Erythematous margins were marked on 08/06, rapidly increasing erythema outside margins with margins remarked @1300 on 08/07 - Continue IV Vancomycin and Zosyn, consider transition to PO pending clinical improvement - Given 1 dose 600 mg IV Linezolid for toxin binding properties and previously failed Clindamycin - initial WBC 10.7, Procal 0.13, Lactic acid 1.1 - Trend CBC and Procal - Will check [facility] clinic records to see when patient last received Tetanus vaccine - Consult General Surgery, Dr. Keane--performed I&D of left upper thigh on , patient found to have 9 cm x 4 cm abscess with purulent material within fascia with necrotic tissue debrided, cultures taken, wound VAC placed. Appreciate recs. - Wound cultures MRSA sensitive to doxy, vanc, linezolid, tetracycline. Consider switching to PO doxy today. - PT/OT consulted - CM consulted for Wound Care in outpt setting - Wound VAC due to be replaced this AM (08/11) #Diabetes Type 2, uncontrolled - Increased Glargine to 75 U BID w/ good control this monring. Continue to monitor. Pt is tolerating a diet. - patient would benefit from an SGLT-2 inhibitor (i.e Jardiance) given DM with CAD risk, consider Rx upon discharge #CAD -Hx of 2V CABG -continue home meds -ASCVD 10 yr risk 38% based on labs during this admission #HTN -monitor vitals q4h -continue home Carvedilol - pt takes lisinopril at home but does not know dose, restarted at 10 mg daily. #HLD -continue home Atorvastatin, Fenofibrate, Gemfibrozil #Bipolar - Admitted hx of non compliance with medications - Will resume home rx Diet: HH VTE: Lovenox Code: Full Dispo: Stable, admit to inpatient on medical unit for continued IV abx and monitoring. Anticipate switch to oral Abx today. Plan to continue to adjust DM meds today. Surgery consulted, appreciate recs. Anticipate discharge in <48 hrs.
[2019-08-11] MEDS: Gemfibrozil 600 MG TAB PO SCH ×2 (07:50→17:22)
[2019-08-11] MEDS: Aspirin 81 mg Enteric Coated Tablet PO SCH (07:50)
[2019-08-11] MEDS: Enoxaparin Sodium 40 MG/0.4 ML SYRINGE SC SCH (07:50)
[2019-08-11] MEDS: Isosorbide Mononitrate (ER) 30 MG TAB PO SCH (07:50)
[2019-08-11] MEDS: Carvedilol 6.25 MG TAB PO SCH ×2 (07:50→20:48)
[2019-08-11] MEDS: Insulin Glargine 75 UNITS in Pre-Filled Syringe 1 EACH SC SCH ×2 (07:51→20:49)
--- NOTE | 2019-08-11 12:40 | PRG ---
DATE OF SERVICE: 08/11/2019 Mr. Acosta is an unfortunate gentleman, who recently had necrotizing fasciitis of the thigh. This also occurred with a deep abscess requiring surgery, leaving the wound open. He also has type 2 diabetes, which is likely the etiology of many of his problems. We will switch him to oral medications in anticipation of discharge in 1 or 2 days. Job ID: [id number]
--- NOTE | 2019-08-11 14:35 | PRG ---
DATE OF SERVICE: 08/11/2019 Star Acosta is doing well today. His left thigh wound VAC was removed this morning, wound evaluated, it looks good. There is no evidence of infection. Culture revealed MRSA from the left thigh, that is sensitive to linezolid and rifampin. It is also sensitive to tetracycline and vancomycin. The patient has Medicaid, which will not cover his home VAC. The patient has transportation, but has gas purchasing problems and states that although he would rather not go to [place], he will have to considering his financial status. He agrees to go to [place] twice week for wound care. He can see me in my office in 2 weeks, probably on morning. He can be sent home with rifampin and/or Zyvox. At this point, I will see him as needed this hospitalization. The patient is ready for discharge on oral antibiotics for 10 days and follow up in my office in 2 weeks. Job ID: [id number]
[2019-08-11] MEDS: Atorvastatin Calcium 40 MG TAB PO SCH (20:48)
[2019-08-11] MEDS: Fenofibrate 48 MG TAB PO SCH (20:48)
[2019-08-11] MEDS: Lisinopril 10 MG TAB PO SCH (20:49)
[2019-08-12 03:18] LABS: #Eosinphils 0.3 thou/uL (0.0-0.7); #Lymphocytes 2.5 thou/uL (1.20-3.40); #Monocytes 0.8 thou/uL (0.11-0.59); #Neutrophils 4.3 thou/uL (1.40-6.50); %Basophils 0.4 % (0.0-1.0); %Eosinophils 3.4 % (0.0-10.0); %Lymphocytes 31.9 % (21.0-51.0); %Monocytes 10.3 % (0.0-10.0); %Neutrophils 53.9 % (42.0-75.0); Hemoglobin 12.6 g/dL (14.0-18.0); Mean Corpuscular HGB CONC 34.9 g/dL (32.0-36.0); Mean Corpuscular Hemoglobin 33.2 pg (27.0-31.0); Mean Corpuscular Volume 95.2 fL (78.0-98.0); Mean Platelet Volume 6.5 fL (7.4-10.4); Platelet Count 346 thou/uL (130-400); RBC Distribution Width 12.2 % (11.5-14.5)
[2019-08-12] MEDS: Morphine 2 MG/ML SYRINGE SLOW IVP PRN (03:18)
[2019-08-12 03:28] LABS: Vancomycin, Trough 18.9 ug/mL
[2019-08-12] MEDS: Vancomycin HCl 1.5 GM in Sodium Chloride 0.9% 250 ML 300 ML IVPB SCH ×2 (03:34→13:09)
[2019-08-12 04:12] LABS: Calcium 9.8 mg/dL (7.8-10.44); Chloride 104 mmol/L (98-107); Potassium 3.5 mmol/L (3.5-5.1); Sodium 141 mmol/L (136-145)
[2019-08-12 04:27] LABS: Glucose 148 mg/dL (70-105)
[2019-08-12 04:29] LABS: Anion Gap 13 mmol/L (10-20); Carbon Dioxide 27 mmol/L (22-29)
[2019-08-12 04:30] LABS: Calc. Creatinine Clearance 149 mL/min (70-130); Estimated GFR-MDRD Greater than 90
[2019-08-12 04:31] LABS: BUN (Urea Nitrogen) 10 mg/dL (8.9-20.6)
--- NOTE | 2019-08-12 05:31 | PDOC.FM ---
- Subjective Subjective: Patient has no complaints this morning. Says pain is still present but improving in left leg. Able to get up and walk around room, able to bear weight on left leg. Patient says his picked up his prescriptions sent yesterday. He is awaiting approval by insurance for wound vac, if not approved then seeking wilder program to help fund wound vac. - Objective Vital Signs & Weight: Vital Signs (12 hours) Temp Pulse Resp BP BP Pulse Ox 08/11/19 20:49 157/85 H 08/11/19 20:48 157/85 H 08/11/19 20:00 99.1 F 79 20 157/85 H 96 Weight Admit Weight 83.234 kg Weight 83.234 kg I&O: 08/10/19 08/11/19 08/12/19 06:59 06:59 06:59 Intake Total 2900 2750 1340 Output Total 4200 860 180 Balance -1300 1890 1160 Result Diagrams: 08/12/19 02:55 08/12/19 02:55 Phys Exam - Physical Examination Constitutional: NAD HEENT: moist MMs, sclera anicteric Neck: no JVD, supple, full ROM Respiratory: no wheezing, no rales, no rhonchi, clear to auscultation bilateral Cardiovascular: RRR, no significant murmur Gastrointestinal: soft, non-tender, no distention, positive bowel sounds Musculoskeletal: no edema, pulses present Neurological: normal sensation, moves all 4 limbs Psychiatric: normal affect, A&O x 3 Skin: no rash Dx/Plan (1) Cellulitis Code(s): L03.90 - CELLULITIS, UNSPECIFIED Status: Acute Qualifiers: Site of cellulitis: extremity Site of cellulitis of extremity: lower extremity Laterality: left Qualified Code(s): L03.116 - Cellulitis of left lower limb (2) Diabetes mellitus type 2, uncontrolled Code(s): E11.65 - TYPE 2 DIABETES MELLITUS WITH HYPERGLYCEMIA Status: Chronic Qualifiers: Glycemic state: with hyperglycemia Qualified Code(s): E11.65 - Type 2 diabetes mellitus with hyperglycemia (3) HTN (hypertension) Code(s): I10 - ESSENTIAL (PRIMARY) HYPERTENSION Status: Chronic Qualifiers: Hypertension type: essential hypertension Qualified Code(s): I10 - Essential (primary) hypertension (4) Hx of CABG Status: Chronic - Plan Plan: Patient is a 39 yo male who presents with left upper leg pain and decreased movement who is admitted for Cellulitis #Cellulitis - Previous I&D w/ no drainage, no wound culture collected at [place] [facility] - Failed outpt abx treatment of Bactrim x 10 days, Clindamycin x 2 days - US without fluid collection or DVT - Erythematous margins were marked on 08/06, rapidly increasing erythema outside margins with margins remarked @1300 on 08/07 - Continue IV Vancomycin and Zosyn, transition to PO Doxycycline as outpatient, Rx already sent on 08/11/19 - Given 1 dose 600 mg IV Linezolid for toxin binding properties and previously failed Clindamycin - initial WBC 10.7, Procal 0.13, Lactic acid 1.1 - Trend CBC and Procal - Consult General Surgery, Dr. Keane--performed I&D of left upper thigh on , patient found to have 9 cm x 4 cm abscess with purulent material within fascia with necrotic tissue debrided, cultures taken, wound VAC placed. Appreciate recs. - Wound cultures MRSA sensitive to doxy, vanc, linezolid, tetracycline. Will switch to PO doxy today. - PT/OT consulted--recommend continued PT in outpatient setting, appreciate recs - CM consulted for Wound Care in outpt setting--working on setting up outpatient wound care appts for pt in [place], additionally He was due to be discharged yesterday but his insurance has not approved wound vac for placement on his left upper thigh post-surgical wound, therefore he remained in hospital overnight for continued Abx and wound care - Wound VAC replaced on 08/11 #Diabetes Type 2, uncontrolled - Increased Glargine to 75 U BID w/ better control this morning (BG 120s to 180s , occasional >200). Continue to monitor. Pt is tolerating a diet. - patient would benefit from an SGLT-2 inhibitor (i.e Jardiance) given DM with CAD risk, Rx upon discharge #CAD -Hx of 2V CABG -continue home meds -ASCVD 10 yr risk 38% based on labs during this admission #HTN -monitor vitals q4h -continue home Carvedilol - pt takes lisinopril at home but does not know dose, restarted at 10 mg daily. #HLD -continue home Atorvastatin, Fenofibrate, Gemfibrozil #Bipolar - Admitted hx of non compliance with medications - Will resume home rx Diet: HH VTE: Lovenox Code: Full Dispo: Stable, admit to inpatient on medical unit for continued IV abx and monitoring. Anticipate switch to oral Abx today. Plan to continue to adjust DM meds. Surgery consulted, appreciate recs. Await insurance appeal for wound vac. Anticipate discharge in <24 hrs.
[2019-08-12] MEDS: HYDROcodone/Acetaminophen 10/325 mg Tablet PO SCH ×2 (05:40→13:08)
[2019-08-12] MEDS: Piperacillin/Tazobactam 3.375 GM in Sodium Chloride 0.9% 100 ML IVPB SCH (05:41)
[2019-08-12] MEDS: HumaLOG 300 UNITS/3 ML VIAL SC PRN (05:44)
[2019-08-12] MEDS: Isosorbide Mononitrate (ER) 30 MG TAB PO SCH (08:04)
[2019-08-12] MEDS: Gemfibrozil 600 MG TAB PO SCH (08:04)
[2019-08-12] MEDS: Enoxaparin Sodium 40 MG/0.4 ML SYRINGE SC SCH ×2 (08:05→08:10)
[2019-08-12] MEDS: Aspirin 81 mg Enteric Coated Tablet PO SCH (08:05)
[2019-08-12] MEDS: Carvedilol 6.25 MG TAB PO SCH (08:05)
[2019-08-12] MEDS: Insulin Glargine 75 UNITS in Pre-Filled Syringe 1 EACH SC SCH (08:09)
--- NOTE | 2019-08-12 10:27 | EKG ---
Test Reason : Blood Pressure : / mmHG Vent. Rate : 075 BPM Atrial Rate : 075 BPM P-R Int : 170 ms QRS Dur : 150 ms QT Int : 410 ms P-R-T Axes : 053 -08 026 degrees QTc Int : 457 ms Suspect unspecified pacemaker failure Normal sinus rhythm Right bundle branch block Minimal voltage criteria for LVH, may be normal variant Abnormal ECG Confirmed by RAJWINDER PORTILLO, LEBRON ([id number]) on 08/12/2019 10:26:59 AM Referred By: SARAI Confirmed By:LEBRON PURDY MD
--- NOTE | 2019-08-12 11:01 | PRG ---
DATE OF SERVICE: 08/12/2019 Mr. Acosta is resting quietly in bed. His insurance company denied the brand of wound VAC recommended. We are therefore awaiting further disposition for his wound VAC. After that time, he will be discharged. Job ID: [id number]
[2019-08-12 15:33] VITALS: BP 123/77; TEMP 98.6
--- NOTE | 2019-08-13 01:46 | DIS ---
DATE OF ADMISSION: 08/06/2019 DATE OF DISCHARGE: 08/12/2019 RESIDENT: Cristela Bradley DO ADMITTING ATTENDING: Elvira Fan MD DISCHARGE ATTENDING: Roger Mcintyre MD CONSULTS: 1. General Surgery, Ramos Keane MD. 2. Case Management. 3. Wound Care. PROCEDURE PERFORMED: I and D with surgical debridement of left upper thigh deep subcutaneous abscess, performed on August 07, 2019, by Dr. Keane. PRIMARY DIAGNOSIS: Cellulitis of left lower extremity. SECONDARY DIAGNOSES: 1. Diabetes mellitus type 2, uncontrolled. 2. Coronary artery disease. 3. Hypertension. 4. Hyperlipidemia. 5. Bipolar disorder. DISCHARGE MEDICATIONS: 1. Doxycycline 100 mg p.o. q.12 hours x10 days. 2. Empagliflozin (Jardiance) 10 mg p.o. daily. 3. Ibuprofen (Motrin) 600 mg p.o. q.6 hours p.r.n. 4. Insulin detemir (Levemir) 75 units subcu b.i.d. 5. Lisinopril 10 mg p.o. at bedtime. 6. Tramadol 50 mg p.o. daily. 7. Humalog sliding scale t.i.d. with meals. 8. Atorvastatin 40 mg p.o. at bedtime. 9. Carvedilol 6.25 mg p.o. b.i.d. 10. Nitroglycerin 0.4 mg p.o. q.5 minutes p.r.n. for chest pain. 11. Aspirin 81 mg p.o. daily. 12. Isosorbide mononitrate 60 mg p.o. daily. 13. Fenofibrate 48 mg p.o. q.p.m. 14. Gemfibrozil 600 mg p.o. b.i.d. DISCONTINUED MEDICATIONS: 1. Insulin detemir (Levemir) 65 units subcu b.i.d. 2. Clindamycin 300 mg p.o. t.i.d. 3. Zosyn 3.375 g IVPB q.6 hours. 4. Vancomycin 1.25 g IVPB b.i.d. HISTORY OF PRESENT ILLNESS/HOSPITAL COURSE: The patient is a 39-year-old male with past medical history of uncontrolled type 2 diabetes, hypertension and hyperlipidemia, who presents from [facility] for left upper leg cellulitis. The patient stated that about a week and a half prior to admission , he started to develop a red bump on his left lateral upper thigh. This bump eventually came to ahead at first when he rubbed it with his hand, producing purulent discharge. Soon after, the patient started to develop swelling and redness spreading from the area. Five days prior, the patient was evaluated and the area was lanced without any drainage being produced from the area. The patient was started on Bactrim, which did not improve and was later switched to clindamycin. Per patient history, he reports Bactrim was used for 10 days and clindamycin for 2 days. The patient presented to the [facility] earlier today because of increased pain and swelling with erythema of his upper left thigh. Ultrasound at the ED was negative for any abscess or fluid collection. Ultrasound was also negative for any vascular occlusion. The patient was then transported here for IV antibiotics and further evaluation. The patient denied any fever or chills, as well as denied any history of previous skin infections. The patient was given one dose of vancomycin and Zosyn in the emergency department. A CT of the lower leg showed possible fasciitis, but was ultimately inconclusive. The patient was admitted to inpatient on the medical unit for continued IV antibiotics and monitoring. On the morning of August 07, 2019, the patient stated that his leg pain felt about the same. He was only able to bend his knee to about 20-30 degrees of flexion secondary to pain. He was unable to lift his left leg. This exam was at approximately 6:30 a.m. The patient's IV vancomycin and IV Zosyn were continued. Later in the morning, at approximately 11:30 a.m., the patient's exam was repeated. The patient was then complaining of pain out of proportion to the exam. He also complained of new tingling and burning sensation in the left knee. His left upper thigh skin was erythematous and had warmth that had now spread past the original margins that were marked in the prior evening. The patient is now unable to move his left knee or leg secondary to pain. There were no visible areas of drainage. The patient was currently on [place] and was having breakthrough 10/10 pain. He was given additional morphine 2 mg q.2 hours for breakthrough pain. He was also added linezolid 600 mg IV x1 dose for toxin binding properties and due to already having failed outpatient clindamycin. There was a concern for necrotizing fasciitis based on this evolving presentation and so General surgery, Dr. Keane, was consulted. On the evening of August 07, 2019, Dr. Keane took the patient back to the operating room for an I and D procedure. The patient was found to have a deep soft tissue infection of the left lateral thigh. There was an abscess of size 9 cm x 4 cm located with infection, superficial to the fascia. The purulent material was sent for culture. There was also undermined and necrotic tissue, which was debrided sharply with excision of subcutaneous tissue and skin. A wound VAC was then applied. The patient tolerated the procedure well. On the morning of August 08, 2019, the patient stated that his left leg was starting to feel better. He had been able to bear weight and walk on the leg for the first time in 3 days. He rated as 10 as out of 5 or 6/10. He was still having some pain with range of motion of the left leg, but did have more motion that morning compared to the prior day. Initial wound cultures on this day showed few gram-positive cocci. The following day, cultures would result positive for MRSA. Eventually, sensitivity showed the MRSA was sensitive to p.o. doxycycline. Additionally throughout his stay, the patient had random blood glucose checks initially in the upper 200s and low 300s. The patient was on home Levemir 65 units b.i.d. along with aggressive sliding scale insulin initially in the hospital. On August 10, 2019, the patient's Levemir dose was increased to 75 units b.i.d. Due to the patient's high risk for coronary artery disease and history of 2-vessel CABG in his 30s, it was considered to start the patient on SGLT2 inhibitor such as Jardiance. However, the hospital does not currently carry this class of medications on formulary. Blood glucose checks were continued to be monitored with continued dosing of Levemir and patient was found to have blood sugars in the 120s to 180s range. The patient will need to be continued for diabetes medication titration as an outpatient with close followup. On the morning of August 11, 2019, the patient had been doing clinically much better with good range of motion and decreased pain in the left leg. He was deemed stable for discharge home on p.o. doxycycline 100 mg b.i.d. for a 10-day course. He was also sent a prescription for Jardiance to begin as an outpatient. However, it was determined on this day that the patient's insurance denied coverage for the wound VAC that he currently had placed. Thus , the patient had to remain for an additional overnight stay pending insurance approval of another type of wound VAC. On the early afternoon of August 12, 2019, a wound VAC was secured for the patient. He will continue to need frequent wound VAC changes as an outpatient, which we performed at [facility]. DISPOSITION: Stable. DISCHARGE INSTRUCTIONS: 1. Location: Home. 2. Diet: Heart healthy. 3. Activity: As tolerated. 4. Followup: Follow up with Dr. Washington at [facility] in 3 to 5 days for hospital followup. Follow up with Dr. Keane in 2-3 weeks for followup of surgery. Complete 10-day course of doxycycline. Job ID: [id number] MTDD
--- NOTE | 2019-08-14 00:33 | PQF ---
LYNN SKAGGS IRVIN [id number] CLINICAL DOCUMENTATION CLARIFICATION FORM: POST DISCHARGE Addendum to original discharge summary date: ____ Late entry note date: __ DATE: 08/14/19 ATTN: Roger Bonilla Please exercise your independent, professional judgment in responding to the clarification form. Clinical indicators are provided on the bottom of this form for your review Please check appropriate box(s): [ ] Cellulitis due to Diabetes [ ] Cellulitis not related to Diabetes [ ] Other diagnosis [ ] Unable to determine In addition, please specify: Present on Admission (POA): [ ] Yes [ ] No [ ] Unable to determine For continuity of documentation, please document condition throughout progress notes and discharge summary. Thank You. CLINICAL INDICATORS - SIGNS / SYMPTOMS / LABS: Lab Glucose 08/08 - 332 mg/dl Family Medicine H&P p1 08/06 Dr Kirkland Presents from [facility] for Left upper leg cellulitis Family Medicine H&P p1 08/06 Dr Kirkland Patient stated that a week and a half luzma it started to develop a red bump on his left lateral purulent Op note p1 08/07 Dr Keane Deep soft tissue infection, left lateral thigh with probably early necrotizing fasciitis PN p1 08/11 Dr Echavarria He also has type 2 diabetes, which is likely the etiology of many of his problem RISKS: Family Medicine H&P p3 08/06 Left lower limb Cellulitis Family Medicine H&P p3 08/06 Diabetes Mellitus type 2, uncontrolled TREATMENT: DEC 22 IV Vancomycin DEC 22 IV Zosyn DEC 22 Insulin Op note p1 08/07 Incision and Drainage with Shard Debridement (This form is maintained as a part of the permanent medical record) 2014 [employer]. All Rights Reserved [email or web address] [not provided] MTDD
== END 2019-08-12 15:40 | disposition home or self-care (01) | DRG 570 ==
LOC: ERS 18:19 → 2SW 19:20 → OBSVTOIN 19:20 → T4-A 08-07 23:13
PROVIDERS: ADMIT Family Medicine; ATTEND Family Medicine
PROC: 0JBM0ZZ Excision of Left Upper Leg Subcutaneous Tissue and Fascia, Open Approach (ICD-10-PCS; principal; 2019-08-07)
DX: L03.116 Cellulitis of left lower limb (principal); M72.6 Necrotizing fasciitis; L02.416 Cutaneous abscess of left lower limb; I25.10 Atherosclerotic heart disease of native coronary artery without angina pectoris; E78.5 Hyperlipidemia, unspecified; E78.00 Pure hypercholesterolemia, unspecified; G43.909 Migraine, unspecified, not intractable, without status migrainosus; M19.90 Unspecified osteoarthritis, unspecified site; F17.220 Nicotine dependence, chewing tobacco, uncomplicated; F31.9 Bipolar disorder, unspecified; E11.65 Type 2 diabetes mellitus with hyperglycemia; K21.9 Gastro-esophageal reflux disease without esophagitis; B95.62 Methicillin resistant Staphylococcus aureus infection as the cause of diseases classified elsewhere; Z79.899 Other long term (current) drug therapy; Z79.82 Long term (current) use of aspirin; Z90.49 Acquired absence of other specified parts of digestive tract; Z88.8 Allergy status to other drugs, medicaments and biological substances; Z91.048 Other nonmedicinal substance allergy status; Z79.4 Long term (current) use of insulin; I25.2 Old myocardial infarction; Z95.1 Presence of aortocoronary bypass graft; Z86.711 Personal history of pulmonary embolism; Z91.14 Patient's other noncompliance with medication regimen
CPT/HCPCS: 36415; 36416; 80048; 80061; 80202; 82010; 83036; 83735; 84100; 84145; 85025; 87070; 87077; 87186; 87205; 93005; 93010; 96374; 96375; J0670; J1100; J1170; J1650; J1815; J2001; J2020; J2250; J2270; J2405; J2543; J2704; J3010; J3370; J3490; J7050; Q0162; Q0169

== ENCOUNTER 2019-08-14 12:39 | Outpatient (CLI) | payer OTHER ==
[2019-08-14] MEDS ORDERED: Sodium Chloride 0.9% 15 ML NEB ONE (16:28)
[2019-08-14] MEDS ORDERED: Lidocaine 4% Topical Sol 50 ML BOT ONE (16:28)
== END 2019-08-14 12:40 | disposition home or self-care (01) ==
LOC: WCC 12:39
PROVIDERS: ATTEND Family Medicine
DX: T81.89XD Other complications of procedures, not elsewhere classified, subsequent encounter (principal)
CPT/HCPCS: 97605; A4218

== ENCOUNTER 2019-08-17 18:05 | Emergency (ER) | payer OTHER | END 2019-08-17 19:25 | disposition home or self-care (01) | LOC: ERS 18:05 | DX: T85.698A Other mechanical complication of other specified internal prosthetic devices, implants and grafts, initial encounter (principal) | CPT/HCPCS: 99284 ==

== ENCOUNTER 2019-08-18 13:50 | Outpatient (CLI) | payer OTHER ==
[~2019-08-18 13:50] MED LIST changes: -ISOVUE-370 76%-LOCM 1 ML ONE; +Sodium Chloride 0.9% 15 ML NEB ONE
== END 2019-08-18 13:51 | disposition home or self-care (01) ==
LOC: WCC 13:50
PROVIDERS: ATTEND Family Medicine
DX: T81.89XD Other complications of procedures, not elsewhere classified, subsequent encounter (principal)
CPT/HCPCS: 36416; 97605; A4218

== ENCOUNTER 2019-08-20 10:31 | Emergency (ER) | payer OTHER ==
[2019-08-20 11:12] LABS: #Basophils 0.1 thou/uL (0.0-0.2); #Eosinphils 0.1 thou/uL (0.0-0.7); #Lymphocytes 1.7 thou/uL (1.20-3.40); #Monocytes 0.5 thou/uL (0.11-0.59); #Neutrophils 4.3 thou/uL (1.40-6.50); %Basophils 1.1 % (0.0-1.0); %Eosinophils 2.1 % (0.0-10.0); %Lymphocytes 25.3 % (21.0-51.0); %Monocytes 6.8 % (0.0-10.0); %Neutrophils 64.7 % (42.0-75.0); Hemoglobin 13.5 g/dL (14.0-18.0); Mean Corpuscular HGB CONC 35.5 g/dL (32.0-36.0); Mean Corpuscular Volume 92.8 fL (78.0-98.0); Mean Platelet Volume 6.4 fL (7.4-10.4); Platelet Count 406 thou/uL (130-400); RBC Distribution Width 12.5 % (11.5-14.5); Red Blood Cell (RBC) Count 4.11 mill/uL (4.70-6.10); White Blood Cell (WBC) Count 6.7 thou/uL (4.8-10.8)
[2019-08-20 11:45] LABS: ALT (SGPT) 16 U/L (8-55); AST (SGOT) 13 U/L (5-34); Albumin 4.2 g/dL (3.5-5.0); Alkaline Phosphatase 90 U/L (40-110); Anion Gap 15 mmol/L (10-20); BUN (Urea Nitrogen) 15 mg/dL (8.9-20.6); Bilirubin, Total 0.7 mg/dL (0.2-1.2); Calc. Creatinine Clearance 0 mL/min (70-130); Calcium 9.7 mg/dL (7.8-10.44); Carbon Dioxide 24 mmol/L (22-29); Chloride 103 mmol/L (98-107); Estimated GFR-MDRD 79; Globulin 3.1 g/dL (2.4-3.5); Glucose 288 mg/dL (70-105); Potassium 4.1 mmol/L (3.5-5.1); Protein, Total 7.3 g/dL (6.0-8.3); Sodium 138 mmol/L (136-145)
== END 2019-08-20 13:30 | disposition home or self-care (01) ==
LOC: ERS 10:31
DX: M25.562 Pain in left knee (principal); I25.2 Old myocardial infarction; E11.9 Type 2 diabetes mellitus without complications; F17.220 Nicotine dependence, chewing tobacco, uncomplicated
CPT/HCPCS: 36415; 80053; 85025; 99281

== ENCOUNTER 2019-08-22 11:38 | Outpatient (CLI) | payer OTHER ==
[~2019-08-22 11:38] MED LIST changes: +Lidocaine 4% Topical Sol 50 ML BOT ONE
== END 2019-08-22 11:39 | disposition home or self-care (01) ==
LOC: WCC 11:38
PROVIDERS: ATTEND Family Medicine
DX: T81.89XD Other complications of procedures, not elsewhere classified, subsequent encounter (principal)
CPT/HCPCS: 97605; A4218

== ENCOUNTER 2019-08-25 09:18 | Outpatient (CLI) | payer OTHER ==
[~2019-08-25 09:18] MED LIST changes: +Lidocaine 2% PF 100 mg/5 ml Syringe ONE; -Lidocaine 4% Topical Sol 50 ML BOT ONE
== END 2019-08-25 09:19 | disposition home or self-care (01) ==
LOC: WCC 09:18
PROVIDERS: ATTEND Family Medicine
DX: T81.89XD Other complications of procedures, not elsewhere classified, subsequent encounter (principal)
CPT/HCPCS: 97605; A4218; J2001

== ENCOUNTER 2019-08-28 11:44 | Outpatient (CLI) | payer OTHER ==
[2019-08-28] MEDS ORDERED: Lidocaine 2% PF 100 mg/5 ml Syringe ONE (15:00)
[2019-08-28] MEDS ORDERED: Sodium Chloride 0.9% 15 ML NEB ONE (15:00)
--- NOTE | 2019-08-28 23:15 | HP ---
HISTORY OF PRESENT ILLNESS: Mr. Star Acosta is a very pleasant 39-year- old gentleman who presents to the Wound Center for evaluation of a wound of the left lateral thigh subsequent to incision and drainage of a deep left thigh abscess on 08/07/[address] Ramos Keane. Negative pressure therapy was initiated intraoperatively and upon discharge from [facility], the patient was referred to the Wound Center for assistance with dressing changes of the wound VAC. The patient was discharged to home on doxycycline, which he has completed taking as prescribed. The patient complains only of pain in his left lateral thigh wound with exposure to cold weather. He denies any fever or chills. PAST MEDICAL HISTORY: 1. Coronary artery disease. 2. Diabetes mellitus. 3. Hypertension. 4. Osteoarthritis. 5. Migraine headaches. 6. History of pulmonary embolism. PAST SURGICAL HISTORY: 1. Coronary artery bypass grafting x2. 2. Laparoscopic cholecystectomy. 3. Right knee arthroscopy. 4. Incision and drainage of deep left by abscess as per HPI. MEDICATIONS: 1. Lantus. 2. Humalog. 3. Januvia. 4. Aspirin. 5. Metoprolol. 6. Multivitamin. ALLERGIES: REGLAN, ADHESIVE TAPE. SOCIAL HISTORY: The patient states that he dipped snuff for 30 years. He states that he stopped 2 years ago. The patient admits to only the rare consumption of alcohol. FAMILY HISTORY: Family history significant for diabetes mellitus. The patient states his mother, father and grandmother were all diagnosed with diabetes mellitus. Family history is also significant for coronary artery disease. The patient states that his mother and father were both diagnosed with coronary artery disease. PHYSICAL EXAMINATION: VITAL SIGNS: Temperature 98.0, pulse 95, respirations 20, blood pressure 117/77 , Accu-Chek 185. GENERAL: A 39-year-old gentleman lying on table in examination room, in no acute distress. HEENT: Normocephalic, atraumatic. NECK: No nuchal rigidity. CHEST: Clear to auscultation. CV: Regular rate and rhythm. ABDOMEN: Soft. EXTREMITIES: Wound of the left lateral thigh is present, which measures approximately 8.0 x 3.0 cm, the wound is granulating. No purulent drainage is associated with the wound. No erythema of the skin surrounding the wound is present. No maceration of the skin of the periwound is noted. NEUROLOGIC: Grossly nonfocal. ASSESSMENT AND PLAN: 1. Wound of left lateral thigh as described above. Negative pressure therapy will be continued with dressing changes of the wound VAC here in the Wound Center. No antibiotics will be prescribed today based upon the appearance of the wound. I will see Mr. Acosta again in approximately 3 weeks. The patient understands and is in agreement with the preceding treatment plan. 2. Coronary artery disease. 3. Diabetes mellitus. The patient's Accu-Chek in clinic today is 185. The patient has been told that for optimal wound healing his blood glucoses should remain below 150. 4. Hypertension. 5. Osteoarthritis. 6. Migraine headaches. 7. History of pulmonary embolism. Job ID: [id number] [facility]
== END 2019-08-28 11:45 | disposition home or self-care (01) ==
LOC: WCC 11:44
PROVIDERS: ATTEND Family Medicine
DX: T81.89XD Other complications of procedures, not elsewhere classified, subsequent encounter (principal); I25.10 Atherosclerotic heart disease of native coronary artery without angina pectoris; E11.9 Type 2 diabetes mellitus without complications; I10 Essential (primary) hypertension; G43.909 Migraine, unspecified, not intractable, without status migrainosus
CPT/HCPCS: 97602; 99203; A4218; G0463; J2001

== ENCOUNTER 2019-09-02 10:53 | Outpatient (CLI) | payer OTHER ==
[2019-09-02] MEDS ORDERED: Sodium Chloride 0.9% 15 ML NEB ONE (11:05)
[2019-09-02] MEDS ORDERED: Lidocaine 4% Topical Sol 50 ML BOT ONE (11:05)
== END 2019-09-02 10:54 | disposition home or self-care (01) ==
LOC: WCC 10:53
PROVIDERS: ATTEND Family Medicine
DX: T81.89XD Other complications of procedures, not elsewhere classified, subsequent encounter (principal)
CPT/HCPCS: 97605; A4218

== ENCOUNTER 2019-09-05 11:38 | Outpatient (CLI) | payer OTHER ==
[2019-09-05] MEDS ORDERED: Sodium Chloride 0.9% 15 ML NEB ONE (15:07)
== END 2019-09-05 11:39 | disposition home or self-care (01) ==
LOC: WCC 11:38
PROVIDERS: ATTEND Family Medicine
DX: T81.89XD Other complications of procedures, not elsewhere classified, subsequent encounter (principal)
CPT/HCPCS: 97605; A4218

== ENCOUNTER 2019-09-08 13:30 | Outpatient (CLI) | payer OTHER | END 2019-09-08 13:31 | disposition home or self-care (01) | LOC: WCC 13:30 | PROVIDERS: ATTEND Family Medicine | DX: T81.89XD Other complications of procedures, not elsewhere classified, subsequent encounter (principal) | CPT/HCPCS: 97605 ==

== ENCOUNTER 2019-09-15 14:04 | Outpatient (CLI) | payer OTHER ==
[2019-09-15] MEDS ORDERED: Lidocaine 2% PF 100 mg/5 ml Syringe ONE (16:53)
[2019-09-15] MEDS ORDERED: Sodium Chloride 0.9% 15 ML NEB ONE (16:53)
== END 2019-09-15 14:05 | disposition home or self-care (01) ==
LOC: WCC 14:04
PROVIDERS: ATTEND Family Medicine
DX: T81.89XD Other complications of procedures, not elsewhere classified, subsequent encounter (principal)
CPT/HCPCS: A4218; J2001

== ENCOUNTER 2019-10-10 20:11 | Emergency (ER) | payer OTHER ==
[2019-10-10 21:58] LABS: Bilirubin Negative (Negative); Blood, Urine Negative (Negative); Clarity Clear (Clear); Glucose, Urine (Dipstick) Greater than 1000 mg/dL (Negative); Leukocyte Negative Leu/uL (Negative); Nitrite Negative (Negative); Protein, Urine (Dipstick) Negative (Neg-Trace); Urobilinogen Normal mg/dL (Less than 2)
== END 2019-10-10 22:47 | disposition home or self-care (01) ==
LOC: ERS 20:11
DX: M54.5 Low back pain (principal); S71.102D Unspecified open wound, left thigh, subsequent encounter; E11.9 Type 2 diabetes mellitus without complications; F41.9 Anxiety disorder, unspecified; F32.9 Major depressive disorder, single episode, unspecified; E78.5 Hyperlipidemia, unspecified; E78.00 Pure hypercholesterolemia, unspecified; M06.9 Rheumatoid arthritis, unspecified; G43.909 Migraine, unspecified, not intractable, without status migrainosus; F17.220 Nicotine dependence, chewing tobacco, uncomplicated; I25.10 Atherosclerotic heart disease of native coronary artery without angina pectoris; Z86.711 Personal history of pulmonary embolism; X58.XXXD Exposure to other specified factors, subsequent encounter
CPT/HCPCS: 81003; 99283

== ENCOUNTER 2020-09-15 12:50 | Outpatient (CLI) | payer OTHER | END 2020-09-15 12:51 | disposition home or self-care (01) | LOC: ULT 12:50 | PROVIDERS: ATTEND Psychiatry & Neurology Neurology | DX: Z02.71 Encounter for disability determination (principal); T81.89XS Other complications of procedures, not elsewhere classified, sequela; R07.9 Chest pain, unspecified | CPT/HCPCS: 93922 ==